=== PATIENT | male | born 1950 | race Hispanic/Latino ===

== ENCOUNTER 2020-07-31 20:29 | Inpatient (IN) | payer MEDICARE, OTHER ==
[~2020-07-31] VITALS: Ht 165.1 cm; Wt 94.3 kg
[~2020-07-31 20:29] MED LIST: ATORVASTATIN CA40 MG PO; CARVEDILOL6.25 MG PO; EX-LAX15 MG PO; LEVEMIR100 UNIT/1 SQ; LISINOPRIL20 MG PO; NOVOLOG100 UNIT/1
[2020-07-31] MEDS ORDERED: IBUPROFEN 600 MG TAB PO STA (20:39)
[2020-07-31] MEDS ORDERED: SODIUM CHLORIDE 0.9% 1000ML 1,000 ML IV ONE (20:45)
[2020-07-31] MEDS ORDERED: PIPER-TAZ 3.375 GM 50 ML IV ONE (20:45)
--- NOTE | 2020-07-31 20:50 | Emergency Department Note ---
History of Present Illnes History of Present Illness Chief Complaint: Extremity Trauma/Pain History of Present Illness This is a 70 year old male brought in by family member for c/o right 2nd digit necrosis that has been going on for about a week. Family states fever of 100.9 . Took tylenol at 1900 today.. Historian: Patient Arrival Mode: Car Structural Worker Required: No Onset (how long ago): day(s) (7) Location: RIGHT FOOT/1ST AND SECOND TOE Quality: TOES TURNING BLACK, FOOT RED AND HOT Radiation: Reports non-radiation Severity: moderate Onset quality: gradual Duration (how long): day(s) (7) Timing of current episode: constant Progression: worsening Chronicity: new Context: Denies recent illness, Denies recent surgery, Denies trauma/injury Relieving factors: none Exacerbating factors: none Treatments prior to arrival: antipyretic Past Medical/Family History Physician Review I have reviewed the patient's past medical and family history. Any updates have been documented here. Past Medical History Recent Fever: Yes Clinical Suspicion of Infectio: Yes New/Unexplained Change in Ment: No Past Medical History: Hypertension, Diabetes Other Medical History: Gastroenteritis. Chronically uncontrolled diabetes mellitus. 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 Right heel superficial wound. Peripheral vascular disease. Other Surgery: Old left ndyrj-[id number] amputation 2 cataract Social History Smoking Cessation: Never Smoker Alcohol Use: None Any Illegal Drug Use: No Family History Family history of heart diseas: No Other family history HTN,DM Other Last Tetanus: unk Review of Systems Review of Systems Constitutional: Reports as per HPI EENTM: Reports no symptoms Cardiovascular: Reports no symptoms Respiratory: Reports no symptoms Gastrointestinal: Reports no symptoms Genitourinary: Reports no symptoms Musculoskeletal: Reports as per HPI Integumentary: Reports as per HPI Neurological: Reports no symptoms Psychological: Reports no symptoms Endocrine: Reports no symptoms Hematological/Lymphatic: Reports no symptoms Physical Exam Related Data Allergies: Coded Allergies: No Known Allergies (Unverified , 03/10/14) Triage Vital Signs Vital Signs Date Time Temp Pulse Resp B/P (MAP) Pulse Ox O2 Delivery O2 Flow Rate FiO2 07/31/20 20:37 103.0 94 20 162/76 96 Room Air Vital signs reviewed: Yes Physical Exam CONSTITUTIONAL Constitutional: Present well-developed, Present well-nourished; Absent distressed HENT HENT: Present normocephalic, Present atraumatic, Present oropharynx clear/moist, Present nose normal HENT L/R: Present left ext ear normal, Present right ext ear normal EYES Eyes: Reports PERRL, Reports conjunctivae normal NECK Neck: Present ROM normal PULMONARY Pulmonary: Present effort normal, Present breath sounds normal CARDIOVASCULAR Cardiovascular: Present regular rhythm, Present heart sounds normal, Present capillary refill normal, Present normal rate GASTROINTESTINAL Abdominal: Present soft, Present nontender, Present bowel sounds normal GENITOURINARY Genitourinary: Present exam deferred SKIN Skin: Present warm, Present dry MUSCULOSKELETAL PT WITH NECROSIS/GANGRENE OF ENTIRE RIGHT SECOND TOE, GANGRENE OF DISTAL ASPECT OF RIGHT GREAT TOE, REST OF RIGHT FOOT IS RED AND HOT TO TOUCH PT WITH LEFT BKA NEUROLOGICAL Neurological: Present alert, Present oriented x 3, Present no gross motor or sensory deficits PSYCHOLOGICAL Psychological: Present mood/affect normal, Present judgement normal Results Laboratory Laboratory Laboratory Tests Test 07/31/20 20:52 07/31/20 20:44 Urine Color Yellow (YELLOW) Urine Clarity Hazy (CLEAR) Urine pH 5.5 (5 - 7) Urine Specific [place] 1.025 (1.010-1.025) Urine Protein >=300 (NEGATIVE) Urine Glucose (UA) 1+ (NEGATIVE) Urine Ketones Negative (NEGATIVE) Urine Blood Moderate (NEGATIVE) Urine Nitrite Negative (NEGATIVE) Urine Bilirubin Negative (NEGATIVE) Urine Urobilinogen 0.2 mg/dL (0.2 - 1) Urine Leukocyte Esterase Trace (NEGATIVE) Urine RBC 6-10 /HPF (0-5) Urine WBC 11-20 /HPF (0-5) Urine Epithelial Cells None /LPF (NONE) Urine Bacteria Many /HPF (NONE) White Blood Count 16.34 x10e3/uL (4.8-10.8) Red Blood Count 3.78 x10e6/uL (4.3-5.7) Hemoglobin 9.7 g/dL (14.0-18.0) Hematocrit 31.9 % (38.2-49.6) Mean Corpuscular Volume 84.4 fL (81-99) Mean Corpuscular Hemoglobin 25.7 pg (28-32) Mean Corpuscular Hemoglobin Concent 30.4 g/dL (31-35) Red Cell Distribution Width 13.2 % (11.7-14.4) Platelet Count 348 x10e3/uL (140-360) Neutrophils (%) (Auto) 84.9 % (38.7-80.0) Lymphocytes (%) (Auto) 7.1 % (18.0-39.1) Monocytes (%) (Auto) 6.8 % (4.4-11.3) Eosinophils (%) (Auto) 0.4 % (0.0-6.0) Basophils (%) (Auto) 0.2 % (0.0-1.0) Neutrophils # (Auto) 13.9 (2.1-6.9) Lymphocytes # (Auto) 1.2 (1.0-3.2) Monocytes # (Auto) 1.1 (0.2-0.8) Eosinophils # (Auto) 0.1 (0.0-0.4) Basophils # (Auto) 0.0 (0.0-0.1) Absolute Immature Granulocyte (auto 0.10 x10e3/uL (0-0.1) Sodium Level 138 mmol/L (136-145) Potassium Level 3.6 mmol/L (3.5-5.1) Chloride Level 104 mmol/L (98-107) Carbon Dioxide Level 20 mmol/L (22-29) Anion Gap 17.6 mmol/L (8-16) Blood Urea Nitrogen 34 mg/dL (7-26) Creatinine 2.22 mg/dL (0.72-1.25) Estimat Glomerular Filtration Rate 30 ML/MIN (60-) BUN/Creatinine Ratio 15 (6-25) Glucose Level 238 mg/dL (74-118) Lactic Acid Level 1.0 mmol/L (0.5-2.0) Calcium Level 7.8 mg/dL (8.4-10.2) Total Bilirubin 0.3 mg/dL (0.2-1.2) Aspartate Amino Transf (AST/SGOT) 9 IU/L (5-34) Alanine Aminotransferase (ALT/SGPT) 7 IU/L (0-55) Alkaline Phosphatase 82 IU/L (40-150) Creatine Kinase 64 IU/L (30-200) Creatine Kinase MB 1.00 ng/mL (0-5.0) Troponin I 0.014 ng/mL (0-0.300) Total Protein 7.1 g/dL (6.5-8.1) Albumin 3.4 g/dL (3.5-5.0) Globulin 3.7 g/dL (2.3-3.5) Albumin/Globulin Ratio 0.9 (0.8-2.0) Lab results reviewed: Yes Imaging Imaging results reviewed: Yes Procedures 12 Lead ECG Interpretation ECG Interpretation : ECG: ECG 1 Structural Worker: Interpreted by ED physician Date: Jul 31, 2020 Time: 21:17 Rhythm: sinus rhythm BPM: 86 QRS axis: left ST segments normal: Yes T waves normal: Yes Other findings: no other findings Clinical Impression: non-specific ECG Assessment & Plan Medical Decision Making MDM PT WITH GANGRENE OF 1 AND 2ND RIGHT TOES WITH ERYTHEMA AND WARMTH TO RIGHT FOOT, PT IS FEBRILE CBC, CMP, EKG, CXR, UA, BLOOD CULTURES, LACTIC ACID, RIGHT FOOT XRAY ORDERED TO EVAL FOR SEPSIS, OSTEOMYELITIS, LEUKOCYTOSIS, ELECTROLYTE ABNORMALITY, NS 1 LITER IV BOLUS ORDERED MOTRIN 600 MG PO ORDERED ZOSYN 3.375 GRAMS IV ORDERED VANCOMYCIN 1 GRAM IV ORDERED I SPOKE WITH DR GEORGE ADMIT INPATIENT Assessment & Plan Final Impression: (1) UTI (urinary tract infection) (2) Gangrene of toe of right foot (3) Cellulitis of right foot (4) Osteomyelitis Depart Disposition: ADMITTED Last Vital Signs Date Time Temp Pulse Resp B/P (MAP) Pulse Ox O2 Delivery O2 Flow Rate FiO2 07/31/20 20:37 103.0 94 20 162/76 96 Room Air Home Meds Reported Medications Sennosides (EX-LAX) 15 Mg Tablet, 15 MG PO DAILY PRN for CONSTIPATION 03/11/14 Lisinopril (PRINAVIL / ZESTRIL) 20 Mg Tablet, 20 MG PO DAILY 03/11/14 Atorvastatin Calcium (ATORVASTATIN CALCIUM) 40 Mg Tablet, 40 MG PO HS 03/11/14 Insulin Detemir (LEVEMIR) 100 Unit/1 Ml Vial, 20 U SQ QAM 03/11/14 Carvedilol (CARVEDILOL) 6.25 Mg Tablet, 6.25 MG PO Q12 03/11/14 Insulin Aspart (NOVOLOG) 100 Unit/1 Ml Cartridge 03/10/14 JC RICHMOND MD Jul 31, 2020 20:49
[2020-07-31 21:04] LABS: BASOPHILS % 0.2 % (0.0-1.0); EOSINOPHILS # (AUTO) 0.1 (0.0-0.4); EOSINOPHILS % 0.4 % (0.0-6.0); HEMATOCRIT 31.9 % (38.2-49.6); HEMOGLOBIN 9.7 g/dL (14.0-18.0); LYMPHOCYTES # (AUTO) 1.2 (1.0-3.2); LYMPHOCYTES % 7.1 % (18.0-39.1); MEAN CORPUSCULAR HEMOGLOBIN 25.7 pg (28-32); MEAN CORPUSCULAR HGB CONC 30.4 g/dL (31-35); MEAN CORPUSCULAR VOLUME 84.4 fL (81-99); MONOCYTES # (AUTO) 1.1 (0.2-0.8); MONOCYTES % 6.8 % (4.4-11.3); NEUTROPHILS # (AUTO) 13.9 (2.1-6.9); NEUTROPHILS % 84.9 % (38.7-80.0); PLATELET COUNT 348 x10e3/uL (140-360); RED BLOOD COUNT 3.78 x10e6/uL (4.3-5.7); RED CELL DISTRIBUTION WIDTH 13.2 % (11.7-14.4)
[2020-07-31 21:09] LABS: BILIRUBIN,URINE NEGATIVE (NEGATIVE); CLARITY,URINE HAZY (CLEAR); COLOR,URINE YELLOW (YELLOW); KETONES,URINE NEGATIVE (NEGATIVE); LEUKOCYTE ESTERASE ,URINE TRACE (NEGATIVE); NITRITE,URINE NEGATIVE (NEGATIVE); PROTEIN,URINE DIPSTICK >=300 (NEGATIVE); URINE UROBILINOGEN 0.2 mg/dL (0.2 - 1)
[2020-07-31 21:18] LABS: ALBUMIN 3.4 g/dL (3.5-5.0); ALBUMIN/GLOBULIN RATIO 0.9 (0.8-2.0); ANION GAP 17.6 mmol/L (8-16); CALCIUM 7.8 mg/dL (8.4-10.2); CREATININE, SERUM 2.22 mg/dL (0.72-1.25); POTASSIUM 3.6 mmol/L (3.5-5.1)
[2020-07-31 21:22] LABS: BACTERIA,URINE MANY /HPF
[2020-07-31] MEDS ORDERED: VANCOMYCIN 1GM/NS 250 ML 250 ML IV ONE (21:30)
--- OUTSIDE RECORDS SUMMARY | 2020-07-31 21:46 | XMS REPORT | Clinical Summary ---
Author Author [facility] Organization [facility] ict Address Unknown Phone Unavailable Care Team Providers Care Vice President Diversity Name Role Phone PCP Unavailable Allergies Comments Active Allergy Reactions Severity Noted Date No Known Allergies 06/13/2008 Medications End Date Status Medication Sig Dispensed Refills Start Date Active LANCETSIndications: BID. 1 Box 1 Uncontrolled diabetes 3 mellitus Active aspirin (ASPIRIN) 81 mg Chew and 30 tablet 0 chewable swallow 1 3 tabletIndications: tablet by Dyslipidemia mouth daily. Active bisacodyl (DULCOLAX) 10 Insert 1 30 0 mg SuppIndications: Suppository Suppository 3 Constipated rectally daily as needed (constipation ). Active bisacodyl (DULCOLAX) 5 mg Take 1 tablet 60 tablet 0 enteric coated by mouth 3 tabletIndications: daily. Constipated Active insulin needles, Inject 1 1 Box 0 disposable, (NOVOFINE 30) Device under 3 30 x 1/3 " the skin needlesIndications: DM daily. (diabetes mellitus) Active omeprazole (PRILOSEC) 20 Take 2 60 capsule 0 1 mg delayed release capsules by 3 capsuleIndications: mouth 2 times Gastritis daily (before meals). Active blood glucose Use as 1 Kit 0 meterIndications: DM directed. 4 (diabetes mellitus) Active blood glucose test Please test 1 Box 3 01 stripsIndications: DM blood sugars 4 (diabetes mellitus) before meals and at bed time. Active LANCETSIndications: DM Please use to 1 Box 3 0 (diabetes mellitus) check blood 4 sugars before meals and at Bedtime. Active insulin needles, Inject 1 1 Box 3 disposable, (NOVOFINE) 30 Device under 4 x 1/3 " the skin 2 needlesIndications: DM times daily. (diabetes mellitus) Active HYDROcodone-acetaminophen Take 1 tablet 30 tablet 1 (NORCO) 10-325 mg by mouth 4 tabletIndications: S/P every 4 hours BKA (below knee as needed for amputation) unilateral Pain. Active lisinopril (PRINIVIL, Take 1 tablet 30 tablet 0 ZESTRIL) 20 mg by mouth 4 tabletIndications: DM daily. (diabetes mellitus), HTN (hypertension) Active insulin detemir (LEVEMIR Inject 15 5 Pen 0 0 FLEXPEN) 100 unit/mL (3 Units under 4 mL) FlexPenIndications: the skin DM (diabetes mellitus) daily. Active insulin needles, Inject 1 1 Box 0 disposable, (NOVOFINE) 30 Device under 4 x 1/3 " the skin needlesIndications: DM daily. (diabetes mellitus) Active atorvastatin (LIPITOR) 40 Take 1 tablet 90 tablet 0 mg tabletIndications: HLD by mouth at 4 (hyperlipidemia) bedtime nightly. Active carvedilol (COREG) 6.25 Take 1 tablet 180 tablet 0 mg tabletIndications: HTN by mouth 4 (hypertension) every 12 hours. Active nystatin (NYSTOP) 100,000 Apply to 15 g 0 unit/gram topical affected area 4 powderIndications: Jock 4 times itch daily. Active Problems Problem Noted Date Open wound of foot with complication 04/21/2014 Wound eschar of foot 01/17/2014 HLD (hyperlipidemia) 12/22/2013 S/P BKA (below knee amputation) unilateral 4 Pseudomonas aeruginosa infection 12/09/2013 Wound infection complicating hardware 12/06/2013 Gangrene 12/02/2013 Osteomyelitis 12/02/2013 UTI (Lower Urinary Tract Infection) 11/19/2013 Closed bimalleolar fracture of left ankle 11/01/2013 Impaired mobility and activities of daily living Subclavian artery stenosis, left 10/14/2013 Fracture of distal end of tibia and fibula, closed, r ight 10/11/2013 Pleural effusion, left 10/08/2013 Constipated 07/29/2013 Cough 2013 Gastritis 2013 Gastroparesis 2013 Vomiting 07/06/2013 DM (diabetes mellitus) 06/23/2008 HTN (hypertension) 06/23/2008 Anemia, unspecified 06/23/2008 Immunizations Name Administration Dates Next Due PPV 23 Pneumococcal 02/15/2013 Polysaccaride Tdap Tetanus, diphtheria, 03/29/2013 acellular pertussis Vaccine Family History Medical History Relation Name Comments Diabetes Father Heart Father ME Relation Name Status Comments Brother Alive Daughter Father Father Maternal Grandfather Maternal Grandmother Mother Paternal Grandfather Paternal Grandmother Sister Alive x3 Social History Date Tobacco Use Types Packs/Day Years Used Former Smoker Cigarettes 2 30 Smokeless Tobacco: Never Used Tobacco Cessation: Counseling Given: No Comments: quit 15 years ago Drinks/Week oz/Week Comments Alcohol Use Used to drink 24 pac k of 10oz beers every day for 30 years. Stopped drinking 15 years ago. No Sex Assigned at Date Recorded Not on file Industry Job Start Date Occupation Not on file Not on file Not on file Travel End Travel History Travel Start No recent travel history available. Last Filed Vital Signs Not on file Plan of Treatment Health Maintenance Due Date Last Done Comments Colorectal Cancer Scrn 2001 Annual (FIT/FOBT) Age 50 to 75 DM Retinal Exam (Yearly) 02/19/2014 02/19/2013 (Previously completed - External) DM Foot Exam (Yearly) 02/25/2014 02/25/2013 CORONARY ARTERY DISEASE 10/08/2014 10/08/2013, AGE 18 AND UP 02/23/2013, 12/09/2008, Additional history exists DM HGBA1C (Yearly) 12/02/2014 12/02/2013, 10/08/2013, 02/23/2013, Additional history exists IMM Pneumococcal Age 65 2016 and Up Results Not on fileafter 07/31/2019 Insurance Type Payer Benefit Subscriber ID Effective Phone Address Plan / Dates Group [facility] xxxxxxxxx 2014- [phone] COMMUNITY Present [id number] PLAN [facility] [address] Advance Directives Date Inactivated Comments Code Status Date Activated 12/22/2013 10:09 PM Full Code 12/02/2013 11:48 AM 11/26/2013 5:29 PM Full Code 11/25/2013 10:28 PM 11/25/2013 10:28 PM Full Code 11/25/2013 7:31 PM 11/03/2013 6:17 PM Full Code 10/15/2013 5:59 PM 10/15/2013 5:30 PM Full Code 10/08/2013 11:31 AM
--- NOTE | 2020-07-31 21:47 | Diagnostic Imaging Report ---
EXAMINATION: CHEST SINGLE (PORTABLE) INDICATION: Fever COMPARISON: None FINDINGS: TUBES and LINES: None. LUNGS: Low right lung volume. Bibasilar haziness. Partial obscuration of left hemidiaphragm. Pulmonary vascular congestion. PLEURA: No pleural effusion or pneumothorax. HEART AND MEDIASTINUM: The cardiomediastinal silhouette is unremarkable. Aortic calcifications. BONES AND SOFT TISSUES: No acute osseous lesion. Soft tissues are unremarkable. UPPER ABDOMEN: No free air under the diaphragm. IMPRESSION: Bibasilar haziness can be due to atelectasis or pneumonia. Pulmonary vascular congestion. Signed by: Kade Cervantes DO on 07/31/2020 9:44 PM
--- NOTE | 2020-07-31 21:53 | Diagnostic Imaging Report ---
X-ray right foot 3 views HISTORY: Pain. COMPARISON: None available. FINDINGS: Bones: Subtle lucent/lytic changes in the distal tuft of the first toe. Joints: Degenerative changes. No dislocations. Soft tissues: Marked soft tissue swelling and minimal emphysema in the first toe. Extensive soft tissue edema. Vascular calcifications. Anterior tibial vascular stent. Thin heel soft tissues. IMPRESSION: Findings in the first toe raise suspicion for osteomyelitis. A right forefoot MRI with contrast can further characterize. Extensive edema about the foot and ankle. Soft tissue wound in the distal second toe. Signed by: Kade Cervantes DO on 07/31/2020 9:49 PM
[2020-07-31] MEDS ORDERED: ONDANSETRON HCL INJ 2MG/ML 2ML 2 MG/ML VIAL IV PRN (22:00)
[2020-07-31] MEDS ORDERED: DEXTROSE 50% SYRINGE 50 ML IV PRN (22:00)
[2020-07-31] MEDS ORDERED: MORPHINE SULFATE 2 MG/ML SYR 1ML IV PRN (22:00)
[2020-07-31] MEDS ORDERED: ACETAMINOPHEN 325 MG TAB PO PRN (22:00)
--- OUTSIDE RECORDS SUMMARY | 2020-07-31 22:01 | XMS REPORT | Continuity of Care Document ---
Author Author [facility] Organization [facility] Address [address] [place] [address] Phone Unavailable Care Team Providers Care Title One Teacher Name Role Phone Martha RICHMOND Unavailable Problems Condition Name Condition Details Condition Category Status Onset Date Resolution Date Last Treatment Date Treating Clinician Comments Source Open wound of foot with complication Open wound of foot with complication Disease Active 2014-04-21 00:00:00 [facility] Wound eschar of foot Wound eschar of foot Disease Active 00:00:00 [place] [employer] HLD (hyperlipidemia) HLD (hyperlipidemia) Disease Active 00:00:00 DiBcom S/P BKA (below knee amputation) unilateral S/P BKA (be low knee amputation) unilateral Disease Active 2013-12-18 00:00:00 [facility] Pseudomonas aeruginosa infection Pseudomonas aeruginosa infectio n Disease Active 2013-12-09 00:00:00 [facility] [employer] Wound infection complicating hardware Wound infection compli cating hardware Disease Active 2013-12-06 00:00:00 [facility] Gangrene Gangrene Disease Active 2013-12-02 00:00:00 [facility] Osteomyelitis Osteomyelitis Disease Active 2013-12-02 00:00:00 [place] UTI (Lower Urinary Tract Infection) UTI (Lower Urinary Tract Inf ection) Disease Active 2013-11-19 00:00:00 [facility] [employer] Closed bimalleolar fracture of left ankle Closed jaret leolar fracture of left ankle Disease Active 2013-11-01 00:00:00 [facility] Impaired mobility and activities of daily living Impai red mobility and activities of daily living Disease Active 2013-10-15 00:00:00 [place] [facility] Subclavian artery stenosis, left Subclavian artery stenosis, lef t Disease Active 2013-10-14 00:00:00 [facility] Fracture of distal end of tibia and fibula, closed, ri ght Fracture of distal end of tibia and fibula, closed, right Disease Active 2013-10-11 00:00:00 [facility] Pleural effusion, left Pleural effusion, left Disease Active 2013-10-08 00:00:00 [facility] Constipated Constipated Disease Active 2013-07-29 00:00:00 [facility] Cough Cough Disease Active 2013 00:00:00 [facility] Gastritis Gastritis Disease Active 2013 00:00:00 [facility] Gastroparesis Gastroparesis Disease Active 2013 00:00:00 [facility] Vomiting Vomiting Disease Active 2013-07-06 00:00:00 [facility] DM (diabetes mellitus) DM (diabetes mellitus) Disease Active 2008-06-23 00:00:00 [facility] HTN (hypertension) HTN (hypertension) Disease Active 2008-06-23 00:00:0 0 [facility] Anemia, unspecified Anemia, unspecified Disease Active 2008-06-23 00:00 :00 [facility] Allergies, Adverse Reactions, Alerts This patient has no known allergies or adverse reactions. Family History Family Member Diagnosis Comments Start Date Stop Date Source Natural father Diabetes [facility] Natural father Heart [facility] Social History Social Habit Start Date Stop Date Quantity Comments Source History of tobacco use Cigarette Smoker [facility] Alcohol Comment Used to drink 24 pack of 10oz beers every day for 30 years. Stopped drinking 15 years ago. [facility]igned At [facility] Cigarettes smoked current (pack per day) - Reported 00:00:00 2014-01-17 00:00:00 [facility] Cigarette pack-years 2014-01-17 00:00:00 2014-01-17 00:00:00 [facility] Alcohol intake 2014-01-17 00:00:00 2014-01-17 00:00:00 Current non-drinker of alcohol (finding) [facility] Tobacco Comment 2013-11-26 00:00:00 2013-11-26 00:00:00 quit 15 years ago [facility] Smoking Status Start Date Stop Date Source Former smoker 2014-01-17 00:00:00 2014-01-17 00:00:00 [facility] ealt Medications Ordered Medication Name Filled Medication Name Start Date Stop Da te Current Medication? Ordering Clinician Indication Dosage Frequency Signature (SIG) Comments Components Source nystatin (NYSTOP) 100,000 unit/gram topical powder 2013-12 00:00:00 Yes Jock itch Apply to affected area 4 times daily. [facility] atorvastatin (LIPITOR) 40 mg tablet 2014-01-03 00:00:00 Yes HLD (hyperlipidemia) 40mg Take 1 tablet by mouth at bedtime nightly . [facility] carvedilol (COREG) 6.25 mg tablet 2014-01-03 00:00:00 Yes HTN (hypertension) 6.25mg Take 1 tablet by mouth every 12 hours. [facility] HYDROcodone-acetaminophen (NORCO) 10-325 mg tablet 2013-11 00:00:00 Yes S/P BKA (below knee amputation) unilateral 1{tbl} Take 1 tablet by mouth every 4 hours as needed for Pain[facility] (PRINIVIL, ZESTRIL) 20 mg tablet 2013-12-22 00:00 :00 Yes HTN (hypertension) 20mg QD Take 1 tablet by mouth daily. [facility] insulin detemir (LEVEMIR FLEXPEN) 100 unit/mL (3 mL) FlexPen 2013-12-22 00:00:00 Yes DM (diabetes mellitus) 15U QD Inject 15 Units under the skin daily. [facility] insulin needles, disposable, (NOVOFINE) 30 x 1/3 " needles 2013-12-22 00:00:00 Yes DM (diabetes mellitus) 1{device} QD Inject 1 Device under the skin daily. [facility] blood glucose meter 2013-11-26 00:00:00 Yes DM (d iabetes mellitus) Use as directed. [facility] blood glucose test strips 2013-11-26 00:00:00 Yes DM (diabetes mellitus) Please test blood sugars before meals and at bed time. [facility] LANCETS 2013-11-26 00:00:00 Yes DM (diabetes jeremy itus) Please use to check blood sugars before meals and at Bedtime. [facility] insulin needles, disposable, (NOVOFINE) 30 x 1/3 " needles 2013-11-26 00:00:00 Yes DM (diabetes mellitus) 1{device} Q.5D Inject 1 Device under the skin 2 times daily. [facility] aspirin (ASPIRIN) 81 mg chewable tablet 2013-11-02 00:00:00 Yes Dyslipidemia 81mg QD Chew and swallow 1 tablet by mouth daily. [facility] bisacodyl (DULCOLAX) 10 mg Supp 2013-11-02 00:00:00 Yes Constipated 10mg Insert 1 Suppository rectally daily as needed (constipation). [facility] bisacodyl (DULCOLAX) 5 mg enteric coated tablet 2013-11-02 0 0:00:00 Yes Constipated 5mg QD Take 1 tablet by mouth daily. [facility] insulin needles, disposable, (NOVOFINE 30) 30 x 1/3 " needle s 2013-11-02 00:00:00 Yes DM (diabetes mellitus) 1{device} QD Inject 1 Device under the skin daily. [facility] omeprazole (PRILOSEC) 20 mg delayed release capsule 2012-11 00:00:00 Yes Gastritis 40mg Q.5D Take 2 capsules by mouth 2 times daily ( before meals). [facility] LANCETS 2013-07-29 00:00:00 Yes Uncontrolled diabetes mellitus BID. [facility] Immunizations Ordered Immunization Name Filled Immunization Name Date Status Comments Source Tdap Tetanus, diphtheria, acellular pertussis Vaccine 2013-03-29 00:00:00 Completed [facility] PPV 23 Pneumococcal Polysaccaride 2013-02-15 00:00:00 Comp leted [facility] Procedures This patient has no known procedures. Plan of Care Planned Activity Planned Date Details Comments Source Future Scheduled Test 2016 00:00:00 IMM Pneumococcal A ge 65 and Up [code = IMM Pneumococcal Age 65 and Up] [facility] Scheduled Test 2014-12-02 00:00:00 Hemoglobin A1c nelson surement (procedure) [code = 16940605] [facility] Scheduled Test 2014-10-08 00:00:00 CORONARY ARTERY DI SEASE AGE 18 AND UP [code = CORONARY ARTERY DISEASE AGE 18 AND UP] [facility] Scheduled Test 2014-02-25 00:00:00 DM Foot Exam (Year ly) [code = DM Foot Exam (Yearly)] [facility] Scheduled Test 2014-02-19 00:00:00 DM Retinal Exam (Y early) [code = DM Retinal Exam (Yearly)] [facility] Scheduled Test 2001 00:00:00 Screening for joanna gnant neoplasm of colon (procedure) [code = 110876542] [facility] Results Test Description Test Time Test Comments Results Result Comments Source FOOT RIGHT COMPLETE 2020-07-31 21:44:00 [place] [id number] [place] [address] Patient Name: JOANIE DINERO JR MR #: [id number] : 1950 Age/Sex: 70/M Req #: [id number] Adm Physician: Ordered by: JC RICHMOND MD Report #: [id number] Location: ER Room/Bed: Procedure: [id number] DX/FOOT RIGHT COMPLETE Exam Date: 07/31/20 Exam Time: 2104 REPORT STATUS: Signed X-ray right foot 3 views HISTORY: Pain. COMPARISON: None available. FINDINGS: Bones: Subtle lucent/lytic changes in the distal tuft of the first toe. Joints: Degenerative changes. No dislocations. Soft tissues: Marked soft tissue swelling and minimal emphysema in the first toe. Extensive soft tissue edema. Vascular calcifications. Anterior tibial vascular stent. Thin heel soft tissues. IMPRESSION: Findings in the first toe raise suspicion for osteomyelitis. A right forefoot MRI with contrast can further characterize. Extensive edema about the foot and ankle. Soft tissue wound in the distal second toe. Signed by: Kade Cervantes DO on 07/31/2020 9:49 PM Dictated By: KADE CERVANTES DO 48 Transcribed By: BON on 07/31/202148 COPY TO: JC RICHMOND MD CHEST SINGLE (PORTABLE) 2020-07-31 21:42:00 [place] [address] Patient Name: JOANIE DINERO JR MR #: [id number] : 1950 Age/Sex: 70/M Req #: [id number] Adm Physician: Ordered by: JC RICHMOND MD Report #: [id number] Location: ER Room/Bed: Procedure: [id number] DX/CHEST SINGLE (PORTABLE) Exam Date: 07/31/20 Exam Time: 2104 REPORT STATUS: Signed EXAMINATION: CHEST SINGLE (PORTABLE) INDICATION: Fever COMPARISON: None FINDINGS: TUBES and LINES: None. LUNGS: Low right lung volume. Bibasilar haziness. Partial obscuration of left hemidiaphragm. Pulmonary vascular congestion. PLEURA: No pleural effusion or pneumothorax. HEART AND MEDIASTINUM: The cardiomediastinal silhouette is unremarkable. Aortic calcifications. BONES AND SOFT TISSUES: No acute osseous lesion. Soft tissues are unremarkable. UPPER ABDOMEN: No free air under the diaphragm. IMPRESSION: Bibasilar haziness can be due to atelectas is or pneumonia. Pulmonary vascular congestion. Signed by: Kade Cervantes DO on 07/31/2020 9:44 PM Dictated By: KADE CERVANTES DO 43 Transcribed By: BON on 07/31/202143 COPY TO: JC RICHMOND MD
--- OUTSIDE RECORDS SUMMARY | 2020-07-31 22:01 | XMS REPORT | Clinical Summary ---
Author Author [facility] Organization [facility] ict Address Unknown Phone Unavailable Care Team Providers Care Shrimp Picker Name Role Phone PCP Unavailable Allergies Comments [...] Relation Name Comments Diabetes Father Heart Father [place] Relation Name Status Comments Brother Alive Daughter [...] Effective Phone Address Plan / Dates Group [facility] xxxxxxxxx 2014- [phone] COMMUNITY Present [id number] [place] [address] Advance Directives Date Inactivated Comments Code Status Date Activated 12/22/2013 10:09 PM Full Code 12/02/2013 11:48 AM 11/26/2013 5:29 PM Full Code 11/25/2013 10:28 PM 11/25/2013 10:28 PM Full Code 11/25/2013 7:31 PM 11/03/2013 6:17 PM Full Code 10/15/2013 5:59 PM 10/15/2013 5:30 PM Full Code 10/08/2013 11:31 AM
[2020-07-31] MEDS: INSULIN REGULAR, HUMAN 100 UNIT/1 ML 3ML VIAL SQ SCH (22:55)
[2020-07-31] MEDS ORDERED: SIMVASTATIN20 MG PO (23:11)
[2020-07-31] MEDS ORDERED: METOPROLOL TART25 MG PO (23:11)
[2020-07-31] MEDS ORDERED: DIOVAN80 MG PO (23:11)
[2020-07-31] MEDS ORDERED: FLOMAX0.4 MG PO (23:11)
[2020-07-31 23:30] VITALS: BP 178/85
--- NOTE | 2020-07-31 23:30 | NUR ---
NEW ADMISSION CAME FROM ER IN [facility].AAOX3.IV TO KELVIN IS PATENT.ADMISSION ASSESSMENT DONE.NO RESP.DISTRESS.NO PAIN VOICED.ORIENTED TO THE UNIT.BED LOCKED AND IN LOWEST POSITION.CALL LIGHT WITHIN REACH.INSTRUCTED TO CALL FOR ASSISTANCE NEEDED.
[2020-07-31 23:40] VITALS: BP 155/85
[2020-08-01] VITALS (7 sets, daily range): BP systolic 97–210; BP diastolic 63–83
[2020-08-01] MEDS: SODIUM CHLORIDE 0.9% 1000ML 1,000 ML IV SCH ×2 (00:51→08:00)
[2020-08-01] MEDS ORDERED: PIPER-TAZ 3.375 GM 50 ML IV ONE (05:00)
[2020-08-01 06:00] LABS: BASOPHILS # (AUTO) 0.1 (0.0-0.1); BASOPHILS % 0.4 % (0.0-1.0); EOSINOPHILS # (AUTO) 0.1 (0.0-0.4); EOSINOPHILS % 0.5 % (0.0-6.0); HEMATOCRIT 29.6 % (38.2-49.6); LYMPHOCYTES # (AUTO) 2.3 (1.0-3.2); LYMPHOCYTES % 12.6 % (18.0-39.1); MEAN CORPUSCULAR HEMOGLOBIN 25.9 pg (28-32); MEAN CORPUSCULAR HGB CONC 30.4 g/dL (31-35); MEAN CORPUSCULAR VOLUME 85.3 fL (81-99); MONOCYTES # (AUTO) 1.9 (0.2-0.8); MONOCYTES % 10.5 % (4.4-11.3); NEUTROPHILS # (AUTO) 13.5 (2.1-6.9); NEUTROPHILS % 75.3 % (38.7-80.0); PLATELET COUNT 328 x10e3/uL (140-360); RED BLOOD COUNT 3.47 x10e6/uL (4.3-5.7); RED CELL DISTRIBUTION WIDTH 13.4 % (11.7-14.4)
--- NOTE | 2020-08-01 06:13 | NUR ---
BP NOTED 200/83 MMOF HG.NOTIFIED TO ARAM TOURE.RECEIVED NEW ORDERS.
[2020-08-01 06:25] LABS: ALBUMIN 3.1 g/dL (3.5-5.0); ALBUMIN/GLOBULIN RATIO 0.9 (0.8-2.0); ALKALINE PHOSPHATASE 75 IU/L (40-150); ANION GAP 17.5 mmol/L (8-16); BLOOD UREA NITROGEN 35 mg/dL (7-26); BUN/CREATININE RATIO 16 (6-25); CALCIUM 7.5 mg/dL (8.4-10.2); CARBON DIOXIDE 21 mmol/L (22-29); CHLORIDE 106 mmol/L (98-107); EST GLOMERULAR FILTRATION RATE 30 ML/MIN (60-); GLUCOSE 94 mg/dL (74-118); POTASSIUM 3.5 mmol/L (3.5-5.1); SODIUM 141 mmol/L (136-145)
[2020-08-01 06:26] LABS: ALANINE AMINOTRANSFERASE < 6 IU/L (0-55)
[2020-08-01] MEDS: HYDRALAZINE HCL 20 MG/ML VIAL IV PRN ×2 (06:27→11:43)
--- NOTE | 2020-08-01 07:30 | NUR ---
Bed side report given to oncoming rn.stable condition.
[2020-08-01] MEDS ORDERED: VANCOMYCIN 1GM/NS 250 ML 250 ML IV SCH (10:00)
[2020-08-01] MEDS: FAMOTIDINE 20 MG TAB PO SCH ×2 (11:30→19:07)
[2020-08-01] MEDS: INSULIN REGULAR, HUMAN 100 UNIT/1 ML 3ML VIAL SQ SCH ×3 (11:30→20:22)
[2020-08-01] MEDS ORDERED: NON-FORMULARY MEDICATION (Carvedilol 6.25 MG) PO SCH (12:15)
[2020-08-01] MEDS ORDERED: MORPHINE SULFATE INJ 4 MG/ML INJ 1ML IV PRN (12:30)
[2020-08-01] MEDS ORDERED: MORPHINE SULFATE 2 MG/ML SYR 1ML IV PRN (12:45)
[2020-08-01] MEDS: CARVEDILOL 3.125 MG TAB PO SCH ×2 (13:02→21:54)
[2020-08-01] MEDS ORDERED: PIPER-TAZ 3.375 GM 50 ML IV SCH (14:00)
--- NOTE | 2020-08-01 15:42 | NUR ---
PT OFF THE FLOOR FOR MRI OF RIGHT FOOT
--- NOTE | 2020-08-01 16:06 | NUR ---
Discontinuing physical therapy services due to patient refusal. Addendum: 08/01/20 at 1607 by Richard paul PT Amended: Links added.
--- NOTE | 2020-08-01 16:42 | NUR ---
PT BACK TO FLOOR FROM MRI
[2020-08-01] MEDS ORDERED: CEFEPIME HCL 1 GM VIAL IV SCH (17:15)
[2020-08-01] MEDS: CEFEPIME 1GM/NS 0.9% 50 ML 50 ML IV SCH ×2 (17:30→18:00)
--- NOTE | 2020-08-01 19:51 | Consultation ---
DATE OF CONSULTATION: REASON FOR CONSULTATION: Infection of the foot. HISTORY OF PRESENT ILLNESS: This patient, who is a very pleasant 70-year-old male, history of diabetes mellitus, history of peripheral vascular disease, hypertension, and severe neuropathy, comes in with fever, chills, gangrene changes of the 2nd toe on the right, which he had for few weeks, but getting progressively worse with redness and swelling. The patient comes in. He does have history of coronary artery disease, peripheral vascular disease, history of left sqauy-bys-pika amputation before, diabetes mellitus, hypertension, multiple surgeries done on his feet before. The patient is being admitted. I am asked to see him. He is currently on Zosyn, Coreg, vancomycin, insulin, and morphine. The patient's white count on admission was 17.8, hemoglobin 9.0. His sodium 141, potassium 3.5, creatinine 2.20. PHYSICAL EXAMINATION: GENERAL: He is currently alert and oriented. Does not seem to be in acute distress. VITAL SIGNS: Stable, currently afebrile. HEENT: He is not icteric. NECK: Supple. CHEST: Few crackles bilateral. HEART: S1 and S2. ABDOMEN: Soft. EXTREMITIES: The foot, there is erythema, there is edema, there is gangrenous changes noted of the toe. His Charcot deformity noted in the foot. Pulse was weak. IMPRESSION: Osteomyelitis of the foot, gangrene of the toe, chronic kidney disease, and diabetes mellitus. RECOMMENDATIONS: We will put him on vancomycin and cefepime. Concerned about his kidney function. We will adjust for kidney function. We will discontinue his Zosyn. Consider vascular workup. Consider renal evaluation. Discussed with the medical team. We will follow. MD ELEANOR Oh/ESME /[id number]
[2020-08-01] MEDS: LINEZOLID 600 MG/D5W 300ML 300 ML IV SCH (19:57)
[2020-08-01] MEDS: ACETAMINOPHEN/CODEINE 300MG - 30MG TAB PO PRN (20:21)
[2020-08-01] MEDS ORDERED: NON-FORMULARY MEDICATION (Atorvastatin Calcium 40 MG) PO SCH (21:00)
[2020-08-01] MEDS: ATORVASTATIN 40 MG TAB PO SCH (21:54)
[2020-08-02] VITALS (9 sets, daily range): BP systolic 121–180; BP diastolic 52–78
[2020-08-02] MEDS: SODIUM CHLORIDE 0.9% 1000ML 1,000 ML IV SCH (04:57)
[2020-08-02] MEDS: CEFEPIME 1GM/NS 0.9% 50 ML 50 ML IV SCH ×2 (05:14→16:59)
[2020-08-02] MEDS: HYDRALAZINE HCL 20 MG/ML VIAL IV PRN (05:32)
[2020-08-02] MEDS: ACETAMINOPHEN/CODEINE 300MG - 30MG TAB PO PRN (05:33)
[2020-08-02] MEDS: LINEZOLID 600 MG/D5W 300ML 300 ML IV SCH ×2 (06:10→18:40)
[2020-08-02 06:24] LABS: BASOPHILS # (AUTO) 0.1 (0.0-0.1); BASOPHILS % 0.4 % (0.0-1.0); EOSINOPHILS # (AUTO) 0.3 (0.0-0.4); EOSINOPHILS % 1.6 % (0.0-6.0); HEMATOCRIT 28.5 % (38.2-49.6); HEMOGLOBIN 8.7 g/dL (14.0-18.0); LYMPHOCYTES # (AUTO) 1.8 (1.0-3.2); LYMPHOCYTES % 10.9 % (18.0-39.1); MEAN CORPUSCULAR HGB CONC 30.5 g/dL (31-35); MEAN CORPUSCULAR VOLUME 85.1 fL (81-99); MONOCYTES # (AUTO) 1.3 (0.2-0.8); MONOCYTES % 8.1 % (4.4-11.3); NEUTROPHILS % 78.3 % (38.7-80.0); PLATELET COUNT 353 x10e3/uL (140-360); RED BLOOD COUNT 3.35 x10e6/uL (4.3-5.7); RED CELL DISTRIBUTION WIDTH 13.5 % (11.7-14.4)
[2020-08-02 06:43] LABS: ALBUMIN 3.1 g/dL (3.5-5.0); ALBUMIN/GLOBULIN RATIO 0.9 (0.8-2.0); ANION GAP 17.8 mmol/L (8-16); CALCIUM 7.7 mg/dL (8.4-10.2); CHOL/HDL RATIO 3.3 (3.9-4.7); CREATININE, SERUM 2.22 mg/dL (0.72-1.25); POTASSIUM 3.8 mmol/L (3.5-5.1)
--- NOTE | 2020-08-02 06:45 | NUR ---
SBAR BEDSIDE REPORT RECEIVED FROM JONY PALOMINO, PM SHIFT. PT FOUND RESTING IN BED, EASILY AROUSED IN NO ACUTE DISTRESS. PT IS ABLE TO MAKE NEEDS KNOWN AND DENIES ANY NEEDS AT THIS TIME. PT WAS EDUCATED ON FALL RISK PRECAUTIONS AND VERBALIZED UNDERSTANDING. CALL LIGHT AND BELONGINGS PLACED NEARBY. WILL CONTINUE TO MONITOR.
[2020-08-02 07:05] LABS: THYROID STIMULATING HORMONE 3.525 uIU/mL (0.350-4.940)
--- NOTE | 2020-08-02 07:15 | NUR ---
ARTERIAL DUPLEX ORDERED BUT NO RESULTS. CALL PLACED TO ECHO AND VERIFIED TEST WAS NOT COMPLETED. ED WILL MAKE THE TECH AWARE FOR TEST TO BE COMPLETED THIS AM
--- NOTE | 2020-08-02 07:18 | NUR ---
RT FOOT WOUND IS DRY.UNABLE TO SEND WOUND CULTURE.BED SIDE SHIFT REPORT GIVEN TO ONCOMING RN.STABLE CONDITION.
[2020-08-02] MEDS: INSULIN REGULAR, HUMAN 100 UNIT/1 ML 3ML VIAL SQ SCH ×4 (07:30→20:57)
--- NOTE | 2020-08-02 08:27 | Diagnostic Imaging Report ---
TECHNIQUE: Magnetic resonance imaging of the RIGHT foot was performed WITHOUT injected contrast. HISTORY: Right foot pain, cellulitis COMPARISON: None available. DISCUSSION: Limited MRI due to motion artifacts poor signal. Bone marrow edema and T1 signal loss in the distal aspect of the distal phalanx first toe and involving the middle and distal phalanges of the second toe. The remainder of the bone marrow signal appears unremarkable. Atrophy of the foot musculature. No drainable abscess. Soft tissue swelling and subcutaneous edema throughout the forefoot. IMPRESSION: Osteomyelitis versus ischemic change to the distal phalanx of the hallux and middle and distal phalanges of the second toe. Signed by: Dr. Pedrito Schumacher M.D. on 08/02/2020 8:24 AM
[2020-08-02] MEDS: CARVEDILOL 3.125 MG TAB PO SCH ×2 (08:29→21:06)
[2020-08-02] MEDS: FAMOTIDINE 20 MG TAB PO SCH ×2 (08:29→16:59)
[2020-08-02] MEDS ORDERED: NON-FORMULARY MEDICATION (Insulin Detemir (Levemir) 20 U) SQ SCH (09:00)
[2020-08-02] MEDS: LISINOPRIL 20 MG TAB PO SCH (09:09)
[2020-08-02] MEDS: TAMSULOSIN HCL 0.4 MG CAP PO SCH (09:09)
[2020-08-02] MEDS: INSULIN GLARGINE 100 UNITS/ML VIAL SQ SCH (09:45)
--- NOTE | 2020-08-02 09:48 | Consultation ---
DATE OF CONSULTATION: 08/02/2020 REASON FOR CONSULTATION: Gangrenous changes to the 1st and 2nd toes, right foot with the patient being an insulin-dependent diabetic. HISTORY OF PRESENT ILLNESS: This is a pleasant 70-year-old male was seen at bedside, who relates he has had some changes to his right foot for more than several weeks now, was having some fever this past Friday. Since he has been on IV antibiotics, he is denying any history of fever, chills, nausea, or vomiting. PAST MEDICAL HISTORY: Remarkable for insulin-dependent diabetes, hypertension, and hypercholesterolemia. PAST SURGICAL HISTORY: Remarkable for left BKA and partial calcanectomy of the right foot. SOCIAL HISTORY: Denies any smoking, drinking, or recreational drug use. CURRENT MEDICATIONS: Include IV vancomycin and cefepime. FAMILY HISTORY: Remarkable for diabetes. REVIEW OF SYSTEMS: CARDIAC: He is denying any palpitations or arrhythmias. RESPIRATORY: Denies any shortness of breath or productive cough. GASTROINTESTINAL: Denies any diarrhea or constipation. GENITOURINARY: Denies any problems voiding. PHYSICAL EXAMINATION: VITAL SIGNS: Afebrile, pulse rate 78, respirations 20, blood pressure 154/57, and O2 saturation 97%. Podiatric physical examination reveals the following: VASCULATURE: Pedal pulses of both the DP and PT of the right lower extremity is greatly diminished. Skin temperature is warm and cool to touch. NEUROLOGICAL: Reveals decreased protective sensation when utilizing Troy-Ed 5.07 monofilament wire. MUSCULOSKELETAL: Reveals muscle mass to be somewhat swollen. Muscle strength to be 3 to 4/5 to all muscle groups of the right foot. DERMATOLOGICAL: Reveals gangrenous changes noted to the 1st and 2nd toe of the right foot, 2nd toe being worse with some periwound cellulitis present. MRI report visualized and positive for osteomyelitis to the right and 2nd toe, right foot. LABORATORY DATA: Noted. He has a white blood cell count of 16.5, hemoglobin 8.7, hematocrit 28.5 with a platelet count of 353. He has a blood glucose of 149. ASSESSMENT: 1. Osteomyelitis. 2. Peripheral arterial disease. 3. Gangrene. 4. Cellulitis, right foot. PLAN: 1. We will continue IV antibiotics as per Dr. Arredondo, waiting for Dr. Sanchez for Vascular evaluation. 2. We will start diluted wet-to-dry Betadine. Continue offloading. The patient is aware he may need an amputation following Vascular evaluation for possible bypass surgery. SERGIO [place]/ESME /[id number]
[2020-08-02] MEDS: AMLODIPINE BESYLATE 10 MG TAB PO SCH (09:51)
--- NOTE | 2020-08-02 12:19 | Diagnostic Imaging Report ---
Exam: FOOT RIGHT COMPLETE - 3 views History: Foot wound/first and second toe gangrene Comparison: Right foot MRI 08/01/2020, right foot radiographs 07/31/2020 Findings: Cortical irregularity at the tuft of the first toe distal phalanx. Additional cortical irregularity at the distal and middle phalanges of the second digit. Findings may represent osteomyelitis or ischemic necrosis which is further evaluated on recent right foot MRI. Diffuse osseous demineralization. No joint malalignment or dislocation. Advanced degenerative changes of the ankle. Posterior and plantar calcaneal enthesophytes. Soft tissue irregularity of the first and second digit with questionable subcutaneous emphysema, correlates with reported foot wound. Scattered vascular calcifications. Impression: 1. Soft tissue irregularity of the first and second digits with questionable subcutaneous emphysema, correlates with reported foot wound. 2. Associated cortical irregularity at the first toe distal phalanx and second toe distal and middle phalanges, which may represent osteomyelitis or ischemic necrosis and further evaluated on recent right foot MRI. Signed by: Dr. Perez Garcia M.D. on 08/02/2020 12:15 PM
--- NOTE | 2020-08-02 17:28 | NUR ---
DOING BETTER no complaints Osteomyelitis of the foot, gangrene of the toe, chronic kidney disease, and diabetes mellitus. sever pvd charco RECOMMENDATIONS: We will put him on vancomycin and cefepime. Concerned about his kidney function. We will adjust for kidney function. We will discontinue his Zosyn. Consider vascular workup. Consider renal evaluation. Discussed with the medical team. We will follow.
--- NOTE | 2020-08-02 18:06 | Diagnostic Imaging Report ---
EXAM: Renal Ultrasound INDICATION: MICHELLE COMPARISON: None TECHNIQUE: Transverse and longitudinal images of the kidneys and bladder were obtained. FINDINGS: Right Kidney: Size: 9.8 x 4.2 x 4.6 cm Echogenicity: Normal Parenchymal thickness: Normal Collecting system: No hydronephrosis Stones: None Cyst/Mass: None Left Kidney: Size: 9.7 x 5.0 x 5.3 cm Echogenicity: Normal Parenchymal thickness: Normal Collecting system: No hydronephrosis Stones: None Cyst/Mass: None Bladder: Decompressed and not well assessed the result. Others: The prostate gland is not seen. IMPRESSION: Normal renal ultrasound exam. Signed by: Evi Shaw MD on 08/02/2020 6:02 PM
--- NOTE | 2020-08-02 18:22 | Progress Note ---
DATE: SUBJECTIVE: Mr. Quiñones is doing well. There are no new complaints. REVIEW OF SYSTEMS: Otherwise unremarkable. The foot seems to be slightly better. PHYSICAL EXAMINATION: GENERAL: He is currently alert, oriented. VITAL SIGNS: Stable, currently afebrile. HEENT: He is not icteric. NECK: Supple. CHEST: Clear. HEART: S1, S2. ABDOMEN: Soft. EXTREMITIES: Foot, gangrenous changes as noted. IMPRESSION: Infection of the foot, osteomyelitis, severe peripheral vascular disease, urinary tract infection, chronic kidney disease. The patient is currently on cefepime and linezolid. Continue supportive care. Vascular workup. He may end up with amputation. Prognosis is guarded recheck. We will follow. MD ELEANOR Oh/MODL /[id number]
[2020-08-02] MEDS: ATORVASTATIN 40 MG TAB PO SCH (21:06)
[2020-08-02] MEDS: ACETAMINOPHEN 325 MG TAB PO PRN (21:06)
[2020-08-03] VITALS (8 sets, daily range): BP systolic 135–153; BP diastolic 56–95
[2020-08-03] MEDS: MORPHINE SULFATE 2 MG/ML SYR 1ML IV PRN ×3 (00:37→17:07)
[2020-08-03] MEDS: CEFEPIME 1GM/NS 0.9% 50 ML 50 ML IV SCH ×2 (04:33→16:25)
[2020-08-03] MEDS: LINEZOLID 600 MG/D5W 300ML 300 ML IV SCH ×2 (05:07→17:25)
[2020-08-03 06:14] LABS: BASOPHILS # (AUTO) 0.1 (0.0-0.1); BASOPHILS % 0.4 % (0.0-1.0); EOSINOPHILS # (AUTO) 0.2 (0.0-0.4); EOSINOPHILS % 1.4 % (0.0-6.0); HEMATOCRIT 25.3 % (38.2-49.6); LYMPHOCYTES # (AUTO) 1.9 (1.0-3.2); LYMPHOCYTES % 13.5 % (18.0-39.1); MEAN CORPUSCULAR HEMOGLOBIN 27.4 pg (28-32); MEAN CORPUSCULAR HGB CONC 31.6 g/dL (31-35); MEAN CORPUSCULAR VOLUME 86.6 fL (81-99); MONOCYTES # (AUTO) 1.5 (0.2-0.8); MONOCYTES % 10.7 % (4.4-11.3); NEUTROPHILS # (AUTO) 10.3 (2.1-6.9); NEUTROPHILS % 73.1 % (38.7-80.0); PLATELET COUNT 330 x10e3/uL (140-360); RED BLOOD COUNT 2.92 x10e6/uL (4.3-5.7); RED CELL DISTRIBUTION WIDTH 13.9 % (11.7-14.4)
--- NOTE | 2020-08-03 06:14 | Consultation ---
DATE OF CONSULTATION: 08/02/2020 Nephrology Consultation REASON FOR CONSULTATION: CKD management, MICHELLE. HISTORY OF PRESENT ILLNESS: This is a 70-year-old male with known type 2 diabetes and hypertension, very noncompliant. He came in for a worsening right foot infection, needing further evaluation and management. Nephrology was consulted for CKD management. The patient reportedly is doing well with no complaints. He does report in the past renal function, but he does not follow up with any physician. No reports of any NSAID use or any [id number] medications or any herbal supplements. For review his chart, his last creatinine that was found to be in the 1. no change. Seems to be more chronic in nature. REVIEW OF SYSTEMS: Pertinent positives: Right foot diabetic ulceration. The rest of 14-point review of systems have been reviewed with the patient and are negative. ALLERGIES: NO KNOWN DRUG ALLERGIES. HOME MEDICATIONS: The patient is on insulin, metoprolol, simvastatin, valsartan, Coreg, PAST MEDICAL HISTORY: Type 2 diabetes, hypertension, and BPH. PAST SURGICAL HISTORY: PHYSICAL EXAMINATION: VITAL SIGNS: Temperature is 98.6, pulse is 79, respiratory rate 20, blood pressure , pulse ox 100% on room air. GENERAL: In no acute distress. Alert and oriented x3. Cooperative on examination. HEENT: Normocephalic, atraumatic. Eyes; pupils are reactive to light bilaterally. Extraocular movements intact bilaterally. PULMONARY: Clear to auscultation bilaterally. No wheezing, rales, or rhonchi. no crackles appreciated. CARDIOVASCULAR: Positive S1 and S2. No murmurs, rubs, or gallops appreciated. Abdomen: Soft, nondistended, and nontender to palpation. Bowel sounds present. MUSCULOSKELETAL: Strength is 5/5 throughout. No evidence of any muscle deficits on examination. SKIN: Intact. Warm to touch. Good cap refill. PSYCHIATRIC: Normal affect and mood. LABORATORY DATA: WBC 16.5, hemoglobin 8.7, hematocrit 26.5, platelets 253. Chemistry, reviewed, . Coronavirus not detected. MICROBIOLOGY: Urine culture shows Gram-negative rods. Blood cultures were negative. IMAGING STUDIES: Chest x-ray on admission pneumonia. Foot x-ray is still concern for osteomyelitis. IMPRESSION: 1. Chronic kidney disease, stage IV, at baseline. 2. Diabetic foot ulcer, right leg. 3. Type 2 diabetes. 4. Hypertension. PLAN: At this time, Nephrology was consulted to evaluate for his underlying acute kidney injury. After further discussion of further review, the patient has abnormal kidney function three years ago, but since then he has not been able to see a physician. At this time, we are recommending upon discharge a Renal consultation. We will continue to work with him here in the hospital stay. , renal ultrasound. Discussed plan of care with nursing staff and the patient. MD CARMEN Simpson/ESME /[id number]
[2020-08-03 06:28] LABS: ALBUMIN/GLOBULIN RATIO 0.9 (0.8-2.0); ALKALINE PHOSPHATASE 59 IU/L (40-150); ANION GAP 16.6 mmol/L (8-16); BLOOD UREA NITROGEN 40 mg/dL (7-26); BUN/CREATININE RATIO 14 (6-25); CALCIUM 7.4 mg/dL (8.4-10.2); CARBON DIOXIDE 18 mmol/L (22-29); CHLORIDE 106 mmol/L (98-107); EST GLOMERULAR FILTRATION RATE 22 ML/MIN (60-); GLUCOSE 105 mg/dL (74-118); POTASSIUM 3.6 mmol/L (3.5-5.1); SODIUM 137 mmol/L (136-145)
--- NOTE | 2020-08-03 06:45 | NUR ---
BEDSIDE SBAR REPORT RECEIVED FROM CARLENE PALOMINO. PATIENT RECEIVED RESTING IN BED EASILY AROUSED IN NO ACUTE DISTRESS. PATIENT IS ABLE TO MAKE NEEDS KNOWN AND DENIES NEEDS AT THIS TIME. PATIENT WAS EDUCATED ON FALL RISK PRECAUTIONS AND VERBALIZED UNDERSTANDING. CALL LIGHT AND BELONGINGS PLACED NEARBY. WILL CONTINUE TO MONITOR.
[2020-08-03 06:49] LABS: ALANINE AMINOTRANSFERASE < 6 IU/L (0-55)
[2020-08-03] MEDS: FAMOTIDINE 20 MG TAB PO SCH ×2 (07:30→16:05)
[2020-08-03] MEDS: INSULIN REGULAR, HUMAN 100 UNIT/1 ML 3ML VIAL SQ SCH ×4 (07:30→20:55)
[2020-08-03] MEDS: LISINOPRIL 20 MG TAB PO SCH (08:56)
[2020-08-03] MEDS: CARVEDILOL 3.125 MG TAB PO SCH ×2 (08:56→21:04)
[2020-08-03] MEDS: TAMSULOSIN HCL 0.4 MG CAP PO SCH (08:56)
[2020-08-03] MEDS: AMLODIPINE BESYLATE 10 MG TAB PO SCH (08:56)
--- NOTE | 2020-08-03 09:05 | Progress Note ---
DATE: 08/03/2020 SUBJECTIVE: The patient is at bedside. No distress. Denies any history of fever, chills, nausea, or vomiting. OBJECTIVE: VITAL SIGNS: Afebrile. Vital signs stable. EXTREMITIES: Right foot, stable for now, has a gangrenous changes noted to the second and first digits of the right foot. Positive cellulitis with decreased circulatory status to both the DP and PT with negative drainage at this point. LABORATORY DATA: Labs show white blood cell count dropping to 14.10, hemoglobin 8.0 with hematocrit of 25.3 and with a platelet count of 330. ASSESSMENT: Peripheral arterial disease and gangrene, right foot. PLAN: We will continue local wound care. Continue IV antibiotics. We will treat conservatively until the patient is evaluated vascularly for definitive procedure. SERGIO Houston/ESME /[id number]
[2020-08-03] MEDS: INSULIN GLARGINE 100 UNITS/ML VIAL SQ SCH (09:09)
--- NOTE | 2020-08-03 10:27 | NUR ---
SECOND CALL PLACED TO DR. DIAZ TO MAKE AWARE OF CONSULT. LEFT MESSAGE WITH ANSWERING SERVICE. AWAITING A CALL BACK FROM .
--- NOTE | 2020-08-03 11:10 | NUR ---
ASSESSMENT: Spiritual concern Pt's daughter, Madai, called to request a underwriter visit for her dad. Pt relying on lio as resource. Pt states he is "an alfredo" and adventist is central to his life. Intervention: Provided empathic listening. Facilitated life review and storytelling. Outcome: Provided information on how to reach underwriter, if needed. Will follow as able. ILEANA CARDOZO Digital Marketing Assistant Spiritual Care Department O: [phone]
--- NOTE | 2020-08-03 14:08 | NUR ---
AROUND LUNCH TIME, WE RECEIVED A RETURN CALL FROM DR. GAGNON, [employer] DISTRIBUTOR TENDER FOR DR. EMILY GAGNON STATED HE DID NOT COVER THIS HOSPITAL AND WE WOULD NEED TO SPEAK WITH DR. DIAZ DIRECTLY. [id number] I PLACED A CALL TO DR. DIAZ'S OFFICE AND WAS PATCHED THROUGH DIRECTLY TO . DR. DIAZ WAS MADE AWARE OF THE CONSULT AND WILL SEE THE PATIENT TONIGHT AFTER HIS CLINIC.
[2020-08-03] MEDS ORDERED: ONDANSETRON HCL 4 MG ORAL DISINTEGRATING TAB PO PRN (15:15)
--- NOTE | 2020-08-03 19:07 | Progress Note ---
DATE: SUBJECTIVE: Mr. Quiñones is doing well. There is no new complaint. He is currently on Zyvox and cefepime. He has been seen by Podiatry. His white count is coming down to 14.1, hemoglobin 8.0. REVIEW OF SYSTEMS: Otherwise, unremarkable. PHYSICAL EXAMINATION: GENERAL: He is currently alert and oriented. VITAL SIGNS: Stable, currently afebrile. HEENT: He is not icteric. NECK: Supple. CHEST: Clear. HEART: S1, S2. ABDOMEN: Soft. Bowel sounds present. EXTREMITIES: No edema. SKIN: No rash. IMPRESSION: The foot seems to be about the same with ischemic changes, both to the second and first toe. Osteomyelitis. The patient will probably need a TMA and vascular evaluation. Continue IV antibiotics. Podiatry is following. We will follow. MD ELEANOR Oh/ESME /[id number]
[2020-08-03] MEDS: ATORVASTATIN 40 MG TAB PO SCH (21:05)
--- NOTE | 2020-08-03 22:19 | Consultation ---
DATE OF CONSULTATION: 08/03/2020 REASON FOR CONSULTATION: Dry gangrene right lower extremity, peripheral arterial disease. REQUESTED BY: Dr. Isaura Arredondo. HISTORY OF PRESENT ILLNESS: I saw and evaluated this patient on August 03, 2020. He is a 70-year-old man with known type 2 diabetes and hypertension. He is quite noncompliant. He has longstanding insulin-dependent diabetes about 20 years with a history of a left below-knee amputation. He came to the emergency room for evaluation of an ischemic right lower extremity. This has apparently been present for several weeks to months. The patient lives at home with his daughter. He was admitted for care of the ischemic toes. Noninvasive studies showed monophasic flow in the anterior tibial and absent flow in the posterior tibial at the right ankle. Pressure in the common femoral artery was 120. There was a drop-off at the mid SFA to 47 with monophasic flow. Vessels may be noncompressible. There was evidence of cellulitis on admission and he has been treated with antibiotics. Cellulitis is resolving. The patient denies any history of myocardial infarction, coronary artery stenting, or coronary artery disease. No history of chest pain. Denies stroke. Says he quit smoking 130 years ago. PAST MEDICAL HISTORY: Positive for type 2 diabetes, hypertension, and BPH. PAST SURGICAL HISTORY: Positive for left below-knee amputation. MEDICATIONS AT HOME: Include: 1. Insulin. 2. Metoprolol. 3. Simvastatin. 4. Valsartan. 5. Coreg. ALLERGIES: NONE KNOWN. SOCIAL HISTORY: Negative for smoking, alcohol, or IV drugs. REVIEW OF SYSTEMS: GENERAL: Positive for fatigue and malaise. NEUROLOGIC: Negative for focal weakness in the extremities or dysarthria. HEENT: Positive for decreased vision and decreased hearing. CARDIAC: Negative for chest pain or palpitations. PULMONARY: Negative for shortness of breath or wheezing. GI: No constipation or diarrhea. : Negative for hematuria or dysuria. ENDOCRINE: Negative for polyuria or polydipsia. VASCULAR: Positive as above. SKIN: Positive for cellulitis as noted above on the right lower extremity. Otherwise negative. HEMATOLOGIC: Negative for clotting or bleeding. INFECTIOUS: Positive as above. PSYCHIATRIC: Negative for depression or anxiety. PHYSICAL EXAMINATION: GENERAL: A chronically ill-appearing man, sitting up in bed. VITAL SIGNS: Blood pressure 130/70, pulse 80 and regular, respirations 16 and unlabored. NECK: Supple and nontender. No JVD. CARDIAC: Shows a regular rate and rhythm. There is a normal S1 and S2. There is no S3, S4, rub, or murmur. LUNGS: Clear to auscultation and percussion bilaterally. ABDOMEN: Globally benign. Good bowel sounds. No hepatosplenomegaly. BACK: No CVA tenderness. No muscular spasm. EXTREMITIES: Well-healed left below-knee amputation. On the right lower extremity, there are chronic stasis changes, which are most marked on the right foot. There is dry gangrene of digits #1 and #2. There are some surrounding cellulitis. No purulent drainage. VASCULAR: Carotids 1+/2+ bilaterally. There may be a carotid bruit on the right. Radials and ulnars 1+/2+ bilaterally. Femoral 2+/2+ bilaterally. No pulses palpable, distal to the femoral artery on the right. SKIN: Some cellulitis surrounding the eschars of the right foot, but otherwise negative. MUSCULOSKELETAL: Full range of motion at all joints. No joint swelling. NEUROLOGIC: Cranial nerves 2 through 12 intact. Sensation intact to light touch and pinprick bilaterally. Strength 5/5 in all extremities. LYMPHATIC: Negative for cervical, clavicular, femoral adenopathy. LABORATORIES AND IMAGING: Noninvasive studies of the lower extremity as above. WBC 14.1, hemoglobin 8.0, hematocrit 25.3, platelet count 16320. Sodium 137, potassium 3.6, BUN 40, creatinine 2.9. Liver function tests are normal. Albumin 3.0 and total protein 6.2. IMPRESSION: Severe peripheral arterial disease in a patient with longstanding insulin-dependent diabetes, who has previously had a left below-knee amputation. There are no palpable pulses below the right femoral artery and noninvasive studies suggest a stenosis at the mid SFA level on the right. I would recommend abdominal aortogram with right lower extremity runoff to the pedal arch to assess the arterial anatomy. Cardiology evaluation with possible stress test as well as carotid duplex to assess the possible right carotid bruit would also be beneficial. We will discuss with his other attendings. Nicolas Sanchez MD G[facility]/MODL /[id number]
[2020-08-04] VITALS (8 sets, daily range): BP systolic 106–149; BP diastolic 66–75
--- NOTE | 2020-08-04 04:04 | Progress Note ---
DATE: 08/03/2020 Renal Progress Note SUBJECTIVE: The patient is doing well today with no complaints. No overnight events. PHYSICAL EXAMINATION: VITAL SIGNS: Temperature 99.7, pulse 74, respiratory rate 20, blood pressure 153/64, and pulse ox 99% on room air. GENERAL: Not in acute distress. Alert and oriented x3. Cooperative on examination. PULMONARY: Clear to auscultation bilaterally. No wheezing, rales or rhonchi. No crackles appreciated. CARDIOVASCULAR: Positive S1, S2. No murmurs, rubs, or gallops appreciated. ABDOMEN: Soft, nondistended, and nontender to palpation. Bowel sounds present. MUSCULOSKELETAL: Strength is 5/5 throughout. No evidence of muscle deficits on examination. SKIN: Intact and warm to touch. Good cap refill. LABORATORY DATA: Show CBC; white count platelets of 330. Chemistry is reviewed. MICROBIOLOGY: Urine culture was Escherichia coli. Blood cultures, no growth to date. IMAGING STUDIES: renal ultrasound shows normal renal echogenicity. Left kidney is . IMPRESSION: 1. Chronic kidney disease, stage 4-5. 2. Diabetic foot ulcer, left leg. 3. Type 2 diabetes. 4. Hypertension. PLAN: At this time, from a Renal standpoint, his renal function is slightly increased. Renal ultrasound reviewed shows to be within normal range. I will go ahead and get repeat labs to the acute kidney injury, or at this time. We will get a.m. labs. Monitor closely. MD CARMEN Simpson/ESME /[id number]
[2020-08-04] MEDS: CEFEPIME 1GM/NS 0.9% 50 ML 50 ML IV SCH ×2 (04:56→16:52)
[2020-08-04 05:07] LABS: BASOPHILS % 0.2 % (0.0-1.0); EOSINOPHILS # (AUTO) 0.2 (0.0-0.4); EOSINOPHILS % 1.2 % (0.0-6.0); HEMATOCRIT 26.7 % (38.2-49.6); HEMOGLOBIN 8.2 g/dL (14.0-18.0); LYMPHOCYTES # (AUTO) 1.3 (1.0-3.2); LYMPHOCYTES % 9.7 % (18.0-39.1); MEAN CORPUSCULAR HEMOGLOBIN 25.6 pg (28-32); MEAN CORPUSCULAR HGB CONC 30.7 g/dL (31-35); MEAN CORPUSCULAR VOLUME 83.4 fL (81-99); MONOCYTES # (AUTO) 1.4 (0.2-0.8); NEUTROPHILS # (AUTO) 10.7 (2.1-6.9); NEUTROPHILS % 78.4 % (38.7-80.0); PLATELET COUNT 341 x10e3/uL (140-360); RED CELL DISTRIBUTION WIDTH 13.8 % (11.7-14.4)
[2020-08-04 05:26] LABS: ALBUMIN/GLOBULIN RATIO 0.9 (0.8-2.0); CALCIUM 7.8 mg/dL (8.4-10.2)
[2020-08-04] MEDS: ACETAMINOPHEN 325 MG TAB PO PRN (05:42)
[2020-08-04] MEDS: LINEZOLID 600 MG/D5W 300ML 300 ML IV SCH ×2 (05:42→18:00)
--- NOTE | 2020-08-04 06:35 | NUR ---
DRESSING TO RIGHT FOOT CHANGED.
--- NOTE | 2020-08-04 06:45 | NUR ---
BEDSIDE SBAR REPORT RECEIVED FROM CARLENE RN, PM SHIFT. PATIENT FOUND RESTING IN BED EASY TO AROUSE. PT AAOX4, ABLE TO MAKE NEEDS KNOWN, AND DENIES ANY FURTHER NEEDS. PATIENT WAS EDUCATED ON FALL RISK PRECAUTIONS AND VERBALIZED UNDERSTANDING. CALL LIGHT AND BELONGINGS PLACED NEARBY. WILL CONTINUE TO MONITOR.
[2020-08-04] MEDS: INSULIN REGULAR, HUMAN 100 UNIT/1 ML 3ML VIAL SQ SCH ×4 (07:30→21:00)
[2020-08-04] MEDS: FAMOTIDINE 20 MG TAB PO SCH ×2 (07:30→16:31)
--- NOTE | 2020-08-04 08:10 | Progress Note ---
DATE: 08/04/2020 SUBJECTIVE: Patient at bedside, in no distress. OBJECTIVE: VITAL SIGNS: Temperature 100.7, respirations 20, blood pressure 149/71, pulse rate 72 with an O2 saturation 96%. LABORATORY DATA: Labs show white blood cell count of 13.7, dropping from a peak of 17.8. Gangrenous changes noted to the 1st and 2nd toes, right foot, positive forefoot cellulitis with pedal pulses diminished. ASSESSMENT: Peripheral arterial disease with gangrenous changes noted to the 1st and 2nd toes, right foot. PLAN: Awaiting arteriogram for possible vascular intervention by Dr. Sanchez. He will continue IV antibiotics, local wound care, offloading for now. SERGIO Houston/ESME /[id number]
[2020-08-04] MEDS: TAMSULOSIN HCL 0.4 MG CAP PO SCH (08:33)
[2020-08-04] MEDS: CARVEDILOL 3.125 MG TAB PO SCH ×2 (08:33→21:09)
[2020-08-04] MEDS: AMLODIPINE BESYLATE 10 MG TAB PO SCH (08:52)
[2020-08-04] MEDS: LISINOPRIL 20 MG TAB PO SCH (08:52)
[2020-08-04] MEDS: INSULIN GLARGINE 100 UNITS/ML VIAL SQ SCH (08:53)
--- NOTE | 2020-08-04 09:10 | NUR ---
AFTER CARE PLAN AND REVIEW OF NOTES, CALL PLACED AND SPOKE DIRECTLY TO DR. DIAZ. NO NEW ORDERS AT THIS TIME. WOULD LIKE TO TALK WITH ATTENDING/CONSULTING DOCTORS
--- NOTE | 2020-08-04 10:00 | NUR ---
PHONE CALL. ORDERS RECEIVED FOR ECHO AND CAROTID DOPPLER PER DR. Barbara MONTERO
[2020-08-04] MEDS ORDERED: SODIUM CHLORIDE 0.9% 1000ML 1,000 ML IV SCH ×2 (11:00→18:00)
[2020-08-04] MEDS ORDERED: ASPIRIN 325 MG TAB EC PO ONE (12:00)
--- NOTE | 2020-08-04 14:26 | Consultation ---
DATE OF CONSULTATION: 08/04/2020 Cardiology Consultation REASON FOR CONSULTATION: Preoperative cardiovascular evaluation and right foot wound. HISTORY OF PRESENT ILLNESS: Mr. Quiñones is a 70-year-old gentleman with past medical history of hypertension, type 2 diabetes, diagnosed many years ago, hypercholesteremia, history of peripheral vascular disease with prior history of left [id number] amputation, history of prior right heel debridement surgery. The patient for the past three days has noted blackness on his right great toe and 2nd toe and is consequently found to have gangrene. The patient is noted to be septic with elevated white blood cell count, anemic as well as notable significant kidney disease with unclear baseline. Foot MRI suggested also osteomyelitis as well. In light of nonpalpable circulation in the feet, Vascular Surgery was consulted, who consequently called us for Cardiovascular Evaluation. The patient denies any discomfort or much sensation in his feet. He denies any subjective fevers or chills. He is a very limited historian. Denies any chest pain or discomfort. He fatigues easily and that is kind of his baseline. He has never had a laborer road before and denies any prior cardiovascular history. His only surgery was his left BKA five years ago and did fine from a cardiovascular standpoint. PAST MEDICAL HISTORY: 1. Hypertension. 2. BPH. 3. Chronic kidney disease. 4. Hypercholesteremia. 5. Type 2 diabetes with complications. 6. PAD with history of left BKA. PAST SURGICAL HISTORY: History of left BKA five years ago. FAMILY HISTORY: Mother at 83 with some sort of cancer. Father at 76 with diabetic complications. SOCIAL HISTORY: Nonsmoker. Denies any alcohol or illicit drug use. ALLERGIES: NO KNOWN DRUG ALLERGIES. MEDICATIONS: See electronic medical record and adopt. REVIEW OF SYSTEMS: GENERAL: Denies any fevers or chills or weight changes. HEENT: No headaches. Has decreased vision from suspected retinopathy. No nasal stuffiness, sore throat. RESPIRATORY: Denies any pleuritic chest pain. Has occasional cough, fatigues easily with exertional dyspnea. CARDIOVASCULAR: Denies any orthopnea or PND. No subjective palpitations, syncope or near syncope. GI: Denies any abdominal pain, bright red blood per rectum, melena, or hematemesis. : Does have urinary frequency, dysuria, and some incontinence at times. MUSCULOSKELETAL: Positive for left BKA, some pain with the left leg upon stretching and does have diminished sensation in his right foot and gangrenous per HPI. NEUROLOGIC: Denies any focal weakness, numbness, tingling, seizures, headache, TIA or stroke. Remainder review of systems negative otherwise mentioned. PHYSICAL EXAMINATION: VITAL SIGNS: Temperature of 98.8, pulse of 78, blood pressure 136/62, respiratory rate of 18, O2 saturation 98% on room air. GENERAL: This is a well-nourished, obese gentleman who is currently in no apparent distress. HEENT: Normocephalic and atraumatic. Pupils are equal, round, reactive to light. Extraocular movements are intact. There is diminished vision. Oropharynx is clear. NECK: No elevation of jugular venous pulsation. There is bilateral carotid bruits, right greater than left. CARDIOVASCULAR: Regular rate and rhythm. Normal S1, S2. 2/6 systolic ejection murmur at the right upper sternal border. LUNGS: Show diminished bibasilar air entry. No crackles or wheezes. ABDOMEN: Soft, nontender, obese. Normoactive bowel sounds. No hepatosplenomegaly. BACK: No costovertebral angle tenderness. EXTREMITIES: Warm with 1 to 2+ right femoral pulse, 1+ left femoral pulse diminished. Right popliteal pulse absent. Pedal pulses left BKA noted. SKIN: Gangrene over his right 1st, 2nd toe. NEUROLOGIC: Cranial nerves 3-12 are intact due to his notable for diminished vision. Strength seemingly is preserved, but poor effort. LABORATORY DATA: White count of 13.7, hemoglobin 8.2, hematocrit 36.7, and platelets of 341. Sodium 138, potassium 4.0, chloride 107, bicarb 17, BUN 42, creatinine of 3.0, glucose of 95, AST 12, ALT 6, alkaline phosphatase 64, total bilirubin 0.4, calcium of 7.8. Lower extremity ultrasound pending. Right foot MRI compatible osteomyelitis as well. DIAGNOSES: 1. Overall, patient has critical limb ischemia with gangrenous changes in his right toes in the setting of complex peripheral vascular disease, suspect predominantly infrapopliteal disease given history of diabetes. 2. Type 2 diabetes with complications. 3. Hypertension, essential. 4. Hypercholesterolemia. 5. Obesity. 6. Anemia. 7. Acute kidney injury versus chronic kidney disease, pretty substantially advanced. 8. Sepsis secondary to gangrene, osteo. PLAN/RECOMMENDATIONS: 1. We have hesitation to proceeding with a peripheral angiogram or invasive cardiac evaluation at this time due to his impaired kidney function and we are not quite sure what his baseline is. 2. He has a very high pretest probability of clinically significant coronary disease, and other atherosclerotic disease processes and interestingly also has bruits over his carotid arteries. 3. We will follow up with an echocardiogram. 4. We will check an EKG, placed on the chart. 5. We will follow up on arterial duplex. 6. We will adjust course as in therapy as clinical course dictates. 7. We will go ahead and start IV fluids to hydrate him and anticipation for perhaps invasive diabetes procedure. Perhaps, we will do it on the next couple of days once he is more optimized especially from a renal standpoint. MD BRIAN Dey/ESME /[id number] [place]
[2020-08-04] MEDS: SODIUM BICARBONATE 650 MG TAB PO SCH (18:00)
--- NOTE | 2020-08-04 18:53 | Progress Note ---
DATE: 08/04/2020 Nephrology Progress Note SUBJECTIVE: The patient is doing well with no complaints. PHYSICAL EXAMINATION: VITAL SIGNS: Temperature 98.2, pulse 67, respiratory rate is 20, blood pressure 142/66, pulse ox 99% on room air. GENERAL: No acute distress. Alert and oriented x3. Cooperative on examination. HEENT: Head is normocephalic and atraumatic. Eyes; pupils are equal, round, and reactive to light bilaterally. Extraocular movements are intact bilaterally. NECK: Supple. Good range of motion. PULMONARY: Clear to auscultation bilaterally. No wheezing, rales, or rhonchi. No crackles appreciated. CARDIOVASCULAR: Positive S1 and S2. No murmurs, rubs, or gallops appreciated. ABDOMEN: Soft, nondistended, nontender to palpation. Bowel sounds present. MUSCULOSKELETAL: Strength is 5/5 throughout. LABORATORY FINDINGS: Show white count 13, hemoglobin 8.2, hematocrit is 26.7, and platelets of 341. Chemistry; sodium 138, potassium is 4, chloride 107, bicarb 17, anion gap of 18, BUN is 42, creatinine is 3, glucose 95. Hemoglobin A1c was 9. Albumin was 3. Coronavirus nondetected. MICROBIOLOGY: Urine culture, E coli. Blood culture, no growth to date. IMAGING STUDIES: Renal ultrasound shows a right kidney 9.8 cm and left kidney 9.7 cm. Normal renal ultrasound noted. IMPRESSION: 1. Chronic kidney disease, stage 4-5. 2. Diabetic foot ulcer, left leg. 3. Type 2 diabetes. 4. Hypertension. 5. Anemia of chronic kidney disease. 6. Secondary hyperparathyroidism. PLAN: At this time from a Renal standpoint, his renal function seems to be chronic in nature. We will go ahead and add sodium bicarbonate tabs at 1300 mg p.o. b.i.d., put on a low-dose of NS at 75 mL/h up to 1 L and then stop. Get urine studies of urine protein to creatinine, microalbumin to creatinine ratio. I will go ahead and get a phosphorus level, intact PTH level, and iron studies. We will continue to monitor very closely. Get a.m. labs. MD CARMEN Simpson/MODL /[id number]
--- NOTE | 2020-08-04 19:33 | Progress Note ---
DATE: SUBJECTIVE: Mr. Quiñones is doing well. There are no new complaints. He has been seen by Cardiology. REVIEW OF SYSTEMS: Otherwise is negative. PHYSICAL EXAMINATION: GENERAL: He is currently alert and oriented. VITAL SIGNS: Stable. Currently afebrile. HEENT: He is not icteric. NECK: Supple. CHEST: Clear. HEART: S1, S2. ABDOMEN: Soft. Bowel sounds present. EXTREMITIES: There is no edema. White count 15.7. His hemoglobin 8.2. His left BKA site is fine. His right foot, there is gangrene noted on 1st and 2nd toe. IMPRESSION: Osteomyelitis infection of right 1st and 2nd toe. Gangrene changes. Vascular workup is in progress. Continue IV antibiotic. May end up with amputation, the level to be determined. Continue with cefepime for the time being and linezolid. Chronic kidney disease, diabetes with neuropathy. We will follow. MD ELEANOR Oh/ESME /[id number]
[2020-08-04] MEDS: ATORVASTATIN 40 MG TAB PO SCH (21:08)
[2020-08-05] VITALS (8 sets, daily range): BP systolic 107–148; BP diastolic 45–73
--- NOTE | 2020-08-05 01:34 | Progress Note ---
DATE: 08/04/2020 REASON FOR PROGRESS NOTE: Dry gangrene in right lower extremity, peripheral arterial disease. REQUESTED BY: Dr. Isaura Arredondo. SUBJECTIVE: The patient is clinically stable today. Gangrene unchanged. Evaluation continues. REVIEW OF SYSTEMS: No chest pain, shortness of breath, neurologic changes, or fever. Right lower extremity not painful, but still Somewhat erythematous. PHYSICAL EXAMINATION: VITAL SIGNS: Blood pressure 130/75, pulse 80 and regular, respirations 16 and unlabored. NECK: Supple and nontender. No JVD. CARDIAC: Shows a regular rate and rhythm. Normal S1 and S2. No S3 or S4. LUNGS: Clear to auscultation and percussion bilaterally. ABDOMEN: Globally benign. Good bowel sounds. EXTREMITIES: Some cellulitis surrounding the distal dry gangrene, but this is less than yesterday. Minimal edema. LABORATORY DATA: White count 13.7, hemoglobin 8.2, hematocrit 26.7, and platelet count 341,000. Sodium 138, potassium 4.0, BUN 42, creatinine 3.0. LFTs are normal. IMPRESSION: The patient was evaluated by Cardiology. We planned studies once cardiac and vascular studies are planned once he recovers somewhat from the infection. We will follow. MD GARCIA Gallagher/MODL /[id number]
[2020-08-05 03:47] LABS: CREATININE,URINE RANDOM 104.99 mg/dL (63-166); TOTAL PROTEIN, URINE 183.9 mg/dL (1-14)
[2020-08-05] MEDS: CEFEPIME 1GM/NS 0.9% 50 ML 50 ML IV SCH ×2 (04:34→16:20)
[2020-08-05] MEDS: LINEZOLID 600 MG/D5W 300ML 300 ML IV SCH ×2 (05:26→17:45)
[2020-08-05 06:04] LABS: BASOPHILS # (AUTO) 0.1 (0.0-0.1); BASOPHILS % 0.4 % (0.0-1.0); EOSINOPHILS # (AUTO) 0.3 (0.0-0.4); EOSINOPHILS % 2.1 % (0.0-6.0); HEMATOCRIT 27.2 % (38.2-49.6); HEMOGLOBIN 8.2 g/dL (14.0-18.0); LYMPHOCYTES # (AUTO) 1.4 (1.0-3.2); LYMPHOCYTES % 11.4 % (18.0-39.1); MEAN CORPUSCULAR HEMOGLOBIN 25.2 pg (28-32); MEAN CORPUSCULAR HGB CONC 30.1 g/dL (31-35); MEAN CORPUSCULAR VOLUME 83.7 fL (81-99); MONOCYTES # (AUTO) 1.2 (0.2-0.8); MONOCYTES % 9.9 % (4.4-11.3); NEUTROPHILS # (AUTO) 9.5 (2.1-6.9); NEUTROPHILS % 75.6 % (38.7-80.0); PLATELET COUNT 340 x10e3/uL (140-360); RED BLOOD COUNT 3.25 x10e6/uL (4.3-5.7); RED CELL DISTRIBUTION WIDTH 13.8 % (11.7-14.4)
[2020-08-05 06:27] LABS: ALBUMIN 2.9 g/dL (3.5-5.0); ALBUMIN/GLOBULIN RATIO 0.9 (0.8-2.0); CALCIUM 7.6 mg/dL (8.4-10.2); CREATININE, SERUM 2.94 mg/dL (0.72-1.25)
[2020-08-05 06:50] LABS: MAGNESIUM 2.1 MG/DL (1.3-2.1); PHOSPHORUS 4.6 MG/DL (2.3-4.7)
[2020-08-05 07:02] LABS: FERRITIN 169.58 ng/mL (21.81-274.66)
[2020-08-05] MEDS: FAMOTIDINE 20 MG TAB PO SCH ×2 (07:30→16:20)
[2020-08-05] MEDS: INSULIN REGULAR, HUMAN 100 UNIT/1 ML 3ML VIAL SQ SCH ×4 (07:30→21:00)
[2020-08-05] MEDS: TAMSULOSIN HCL 0.4 MG CAP PO SCH (08:27)
[2020-08-05] MEDS: CARVEDILOL 3.125 MG TAB PO SCH ×2 (08:27→21:00)
[2020-08-05] MEDS: ASPIRIN 81 MG ENTERIC COATED PO SCH (08:27)
[2020-08-05] MEDS: SODIUM BICARBONATE 650 MG TAB PO SCH ×2 (08:27→16:36)
[2020-08-05] MEDS: AMLODIPINE BESYLATE 10 MG TAB PO SCH (08:28)
[2020-08-05] MEDS: INSULIN GLARGINE 100 UNITS/ML VIAL SQ SCH (09:17)
[2020-08-05] MEDS ORDERED: SODIUM CHLORIDE 0.9% 1000ML 1,000 ML ONE (12:01)
--- NOTE | 2020-08-05 14:21 | Progress Note ---
DATE: 08/05/2020 SUBJECTIVE: The patient is seen at bedside, in no distress. Decreased discomfort to the right lower extremity. OBJECTIVE: VITAL SIGNS: Afebrile, pulse rate 66, respirations 19, blood pressure 107/46, and O2 saturation 92%. EXTREMITIES: Gangrenous changes noted to the distal aspect of the right great toe and 2nd toe right foot are stable for now. There is positive cellulitis. Pedal pulses diminished. LABORATORY DATA: Noted. White blood cell count of 12.56. ASSESSMENT: Peripheral arterial disease with gangrene and cellulitis. PLAN: We will continue local wound care. Continue IV antibiotics such as cefepime IV. Continue offloading. Awaiting vascular intervention per Dr. Sanchez before definitive procedure can be done. The patient understands amputation will need to be done. Extent of amputation undetermined at this time. SERGIO Houston/ESME /[id number]
[2020-08-05] MEDS ORDERED: SODIUM CHLORIDE 0.9% 1000ML 1,000 ML IV ONE (14:30)
--- NOTE | 2020-08-05 15:32 | Progress Note ---
DATE: 08/05/2020 Nephrology Progress Note SUBJECTIVE: The patient reportedly is doing well today with no complaints. No overnight events. Renal function is slightly downtrending with initiation of low-dose IV fluids. PHYSICAL EXAMINATION: VITAL SIGNS: Temperature is 99, pulse 66, respiratory rate is 19, blood pressure 107/46, and pulse ox 94% on room air. GENERAL: Not in acute distress. Alert and oriented x3. Cooperative on examination. PULMONARY: Clear to auscultation bilaterally. No wheezing, no rales, no rhonchi, no crackles appreciated. CARDIOVASCULAR: Positive S1 and S2. No murmurs, rubs, or gallops appreciated. ABDOMEN: Soft, nondistended, and nontender to palpation. Bowel sounds present. MUSCULOSKELETAL: Strength is 5/5 throughout. No evidence of any muscle deficits on examination. No weakness appreciated. NEUROLOGIC: Cranial nerves 2 through 12 grossly intact. No evidence of any neurological deficits on exam. . PSYCHIATRIC: Normal affect and mood. EXTREMITIES: No edema. Good range of motion throughout. LABORATORY DATA: Show white count is 12.6, hemoglobin is 8.2, hematocrit is 26.7, and platelets of 340. Chemistry; sodium 137, potassium 4.0, chloride 105, bicarb 17, anion gap of 19, BUN is . Iron saturation 11%. Intact PTH is pending. Phosphorus level 4.6. Magnesium 2.1. Calcium 7.6. MICROBIOLOGY: Noted. IMAGING STUDIES: None. IMPRESSION: 1. Chronic kidney disease, stage 4-5. 2. Diabetic foot ulcer, left foot. 3. Type 2 diabetes. 4. Hypertension. 5. Anemia of chronic kidney disease. 6. Secondary hyperparathyroidism. PLAN: At this time from a Renal standpoint, his renal function is slightly improved with normal saline, which we will go ahead and continue for one more day and then stop. We will continue with sodium bicarbonate tablets 1300 mg p.o. b.i.d. Does have underlying iron deficiency anemia, which we will go ahead and initiate on oral iron. Intact PTH levels are pending. Continue to follow with primary team. The patient has underlying chronic kidney disease and . MD CARMEN Simpson/VIKL /[id number]
--- NOTE | 2020-08-05 16:47 | Progress Note ---
DATE: SUBJECTIVE: Mr. Quiñones is doing well. There is no new complaint. REVIEW OF SYSTEMS: Otherwise, HEENT: Negative. PULMONARY: Negative. CARDIAC: Negative. PHYSICAL EXAMINATION: GENERAL: Currently alert, oriented. VITAL SIGNS: Stable, afebrile. HEENT: He is not icteric. NECK: Supple. CHEST: Clear. HEART: S1 and S2. No S3, S4, or murmur. ABDOMEN: Soft. Bowel sounds present. EXTREMITIES: No edema. SKIN: No rash. LABORATORY DATA: His white count 12.6 and hemoglobin 8.2. IMPRESSION: Diabetic foot ulcer on the left, ischemic, chronic kidney disease, diabetes mellitus with neuropathy. Vascular workup is in progress. May end up with TMA. Continue antibiotic. Continue supportive care. Continue vascular workup. Further recommendations to follow. MD ELEANOR Oh/ESME /[id number]
--- NOTE | 2020-08-05 19:05 | NUR ---
Bedside rounds completed with morning nurse. Pt alert and oriented to name, lying in bed HOB 30 degrees, denies pain at this time. Call light within reach.
[2020-08-05] MEDS: ATORVASTATIN 40 MG TAB PO SCH (21:00)
[2020-08-06] VITALS (8 sets, daily range): BP systolic 115–130; BP diastolic 54–78
[2020-08-06] MEDS: CEFEPIME 1GM/NS 0.9% 50 ML 50 ML IV SCH ×2 (04:45→16:21)
[2020-08-06] MEDS: LINEZOLID 600 MG/D5W 300ML 300 ML IV SCH ×2 (06:00→18:16)
[2020-08-06 06:23] LABS: BASOPHILS % 0.3 % (0.0-1.0); EOSINOPHILS # (AUTO) 0.2 (0.0-0.4); EOSINOPHILS % 1.6 % (0.0-6.0); HEMATOCRIT 26.2 % (38.2-49.6); HEMOGLOBIN 8.3 g/dL (14.0-18.0); LYMPHOCYTES # (AUTO) 1.2 (1.0-3.2); LYMPHOCYTES % 9.1 % (18.0-39.1); MEAN CORPUSCULAR HEMOGLOBIN 26.9 pg (28-32); MEAN CORPUSCULAR HGB CONC 31.7 g/dL (31-35); MEAN CORPUSCULAR VOLUME 85.1 fL (81-99); MONOCYTES # (AUTO) 1.2 (0.2-0.8); NEUTROPHILS # (AUTO) 10.7 (2.1-6.9); NEUTROPHILS % 79.5 % (38.7-80.0); PLATELET COUNT 321 x10e3/uL (140-360); RED BLOOD COUNT 3.08 x10e6/uL (4.3-5.7); RED CELL DISTRIBUTION WIDTH 13.8 % (11.7-14.4)
[2020-08-06 07:12] LABS: ALBUMIN 2.9 g/dL (3.5-5.0); ALBUMIN/GLOBULIN RATIO 0.9 (0.8-2.0); ANION GAP 17.1 mmol/L (8-16); CALCIUM 7.6 mg/dL (8.4-10.2); CREATININE, SERUM 3.08 mg/dL (0.72-1.25); POTASSIUM 4.1 mmol/L (3.5-5.1)
[2020-08-06] MEDS: INSULIN REGULAR, HUMAN 100 UNIT/1 ML 3ML VIAL SQ SCH ×4 (07:30→21:00)
[2020-08-06] MEDS: ASPIRIN 81 MG ENTERIC COATED PO SCH (09:07)
[2020-08-06] MEDS: FAMOTIDINE 20 MG TAB PO SCH ×2 (09:07→16:21)
[2020-08-06] MEDS: CARVEDILOL 3.125 MG TAB PO SCH ×2 (09:08→21:00)
[2020-08-06] MEDS: AMLODIPINE BESYLATE 10 MG TAB PO SCH (09:09)
[2020-08-06] MEDS: TAMSULOSIN HCL 0.4 MG CAP PO SCH (09:10)
[2020-08-06] MEDS: SODIUM BICARBONATE 650 MG TAB PO SCH ×2 (09:10→16:22)
[2020-08-06] MEDS: INSULIN GLARGINE 100 UNITS/ML VIAL SQ SCH (09:11)
--- NOTE | 2020-08-06 16:01 | NUR ---
progress note Patient was seen and examined chart reviewed events noted medication list reviewed lab data reviewed and discussed with medical team patient with no new complaints and review of systems there is no new data today Mr. Quiñones is doing well. There is no new complaint. REVIEW OF SYSTEMS: Otherwise, All negative HEENT: Negative. PULMONARY: Negative. CARDIAC: Negative. PHYSICAL EXAMINATION: GENERAL: Currently alert, oriented. VITAL SIGNS: Stable, afebrile. HEENT: He is not icteric. NECK: Supple. CHEST: Clear. HEART: S1 and S2. No S3, S4, or murmur. ABDOMEN: Soft. Bowel sounds present. EXTREMITIES: No edema. SKIN: No rash. LABORATORY DATA: His white count 12.6 and hemoglobin 8.2. IMPRESSION: Diabetic foot ulcer on the left, ischemic, chronic kidney disease, diabetes mellitus with neuropathy. Vascular workup is in progress. May end up with TMA. Continue antibiotic. Continue supportive care. Continue continue workup as ordered
--- NOTE | 2020-08-06 19:15 | NUR ---
Report received from morning nurse. Pt alert and oriented to name, lying in bed HOB 45 degrees, denies pain at this time. Call light within reach.
[2020-08-06] MEDS: ATORVASTATIN 40 MG TAB PO SCH (21:00)
[2020-08-06] MEDS ORDERED: SODIUM CHLORIDE 0.9% 1000ML 1,000 ML IV SCH ×2 (21:45→23:50)
[2020-08-07] VITALS (8 sets, daily range): BP systolic 107–144; BP diastolic 63–70
[2020-08-07] MEDS: CEFEPIME 1GM/NS 0.9% 50 ML 50 ML IV SCH ×2 (05:00→16:09)
[2020-08-07] MEDS: LINEZOLID 600 MG/D5W 300ML 300 ML IV SCH ×2 (06:00→17:05)
--- NOTE | 2020-08-07 07:00 | NUR ---
BEDSIDE SHIFT REPORT RECEIVED FROM THE MATERIALS HANDLING COORDINATOR RN. EDUCATED PT ABOUT FALL PRECAUTIONS. PT VERBALIZED UNDERSTANDING. BED IS LOW AND LOCKED. SIDE RAILS X2. CALL LIGHT WITH IN EASY REACH. PT DENIES NEEDS AT THIS TIME.
[2020-08-07 07:07] LABS: BASOPHILS % 0.3 % (0.0-1.0); EOSINOPHILS # (AUTO) 0.3 (0.0-0.4); EOSINOPHILS % 2.1 % (0.0-6.0); HEMATOCRIT 26.7 % (38.2-49.6); HEMOGLOBIN 8.3 g/dL (14.0-18.0); LYMPHOCYTES # (AUTO) 1.3 (1.0-3.2); LYMPHOCYTES % 10.3 % (18.0-39.1); MEAN CORPUSCULAR HEMOGLOBIN 26.6 pg (28-32); MEAN CORPUSCULAR HGB CONC 31.1 g/dL (31-35); MEAN CORPUSCULAR VOLUME 85.6 fL (81-99); MONOCYTES % 8.1 % (4.4-11.3); NEUTROPHILS # (AUTO) 10.1 (2.1-6.9); NEUTROPHILS % 78.8 % (38.7-80.0); PLATELET COUNT 289 x10e3/uL (140-360); RED BLOOD COUNT 3.12 x10e6/uL (4.3-5.7); RED CELL DISTRIBUTION WIDTH 13.7 % (11.7-14.4)
[2020-08-07 07:12] LABS: INR 1.05; PROTHROMBIN TIME 14.2 seconds (11.9-14.5)
[2020-08-07 07:20] LABS: ALBUMIN 2.8 g/dL (3.5-5.0); ALBUMIN/GLOBULIN RATIO 0.9 (0.8-2.0); ANION GAP 13.3 mmol/L (8-16); CALCIUM 7.5 mg/dL (8.4-10.2); CREATININE, SERUM 2.83 mg/dL (0.72-1.25); POTASSIUM 4.3 mmol/L (3.5-5.1)
[2020-08-07] MEDS: INSULIN REGULAR, HUMAN 100 UNIT/1 ML 3ML VIAL SQ SCH ×4 (07:30→20:59)
[2020-08-07] MEDS: FAMOTIDINE 20 MG TAB PO SCH ×3 (07:30→16:09)
--- NOTE | 2020-08-07 07:59 | NUR ---
PT BLOOD SUGAR IS 82. PT IS ON NPO. JAY CHEN VP [employer] AND REPORTED THE SAME.
[2020-08-07] MEDS ORDERED: DEXTROSE 5%/0.9% SOD CHL 1,000 ML IV ONE (08:00)
[2020-08-07] MEDS: ASPIRIN 81 MG ENTERIC COATED PO SCH (09:00)
[2020-08-07] MEDS: INSULIN GLARGINE 100 UNITS/ML VIAL SQ SCH (09:00)
--- NOTE | 2020-08-07 09:00 | NUR ---
NO SCD PER MIAH CHIU
--- NOTE | 2020-08-07 09:45 | NUR ---
WALKING ROUND MADE. PT IS AAOX3. PT DENIES NEEDS AT THIS TIME.
--- NOTE | 2020-08-07 09:52 | NUR ---
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
--- NOTE | 2020-08-07 10:11 | NUR ---
PT OFF UNIT FOR PROCEDURE IN SAFE CONDITION.
[2020-08-07] MEDS ORDERED: MIDAZOLAM HCL 2 MG/2 ML VIAL ONE (10:43)
[2020-08-07] MEDS ORDERED: LIDOCAINE HCL 2% LOCAL 20 ML VIAL ONE (10:43)
[2020-08-07] MEDS ORDERED: FENTANYL CITRATE/PF 100MCG/2 ML INJ ONE (10:43)
[2020-08-07] MEDS ORDERED: IOPAMIDOL 300MG/ML 100 ML INFUS..BTL IV ONE (10:44)
[2020-08-07] MEDS ORDERED: HEPARIN SOD/SOD CHLORIDE 2,000 ML ONE (10:44)
--- NOTE | 2020-08-07 11:35 | NUR ---
PT BACK TO UNIT FROM [address] [facility]. PT IS AAOX3. DRESSING ON LEFT GROIN CDI. PT DENIES NEEDS AT THIS TIME. PT CAN RESUME DIET PER [facility] [facility].
[2020-08-07] MEDS: CARVEDILOL 3.125 MG TAB PO SCH ×2 (12:26→21:15)
[2020-08-07] MEDS: TAMSULOSIN HCL 0.4 MG CAP PO SCH (12:26)
[2020-08-07] MEDS: AMLODIPINE BESYLATE 10 MG TAB PO SCH (12:27)
[2020-08-07] MEDS: SODIUM BICARBONATE 650 MG TAB PO SCH ×2 (12:27→16:09)
[2020-08-07] MEDS: SODIUM CHLORIDE 0.9% 1000ML 1,000 ML IV SCH (13:00)
--- NOTE | 2020-08-07 14:45 | Progress Note ---
DATE: 08/06/2020 SUBJECTIVE: The patient is at bedside, in no distress. He is denying any history of fever, chills, nausea, or vomiting. OBJECTIVE: VITAL SIGNS: Afebrile. Vital signs are stable. Right great toe stable with gangrenous changes noted to the first and second toes with cellulitis of the midfoot area. LABORATORY DATA: Showed white blood cell count of 13.4, negative drainage. Pedal pulses diminished. ASSESSMENT: Peripheral arterial disease with gangrene, cellulitis, right foot with neuropathy. PLAN: Continue IV antibiotics. Continue local wound care. Awaiting vascular intervention before any surgery we perform. SERGIO Houston/ESME /[id number]
--- NOTE | 2020-08-07 14:54 | Progress Note ---
DATE: 08/07/2020 SUBJECTIVE: The patient is seen at bedside. Decreased discomfort to the right lower extremity. The patient is scheduled for a cardiac cath per Dr. Buitrago on this date. OBJECTIVE: VITAL SIGNS: Afebrile, pulse rate 66, respirations 20, blood pressure 130/67, and O2 saturation 95%. EXTREMITIES: Pedal pulses diminished to both the right lower extremity. Gangrenous changes noted to the 1st and 2nd toes, right foot with cellulitis to the mid foot aspect of the right lower extremity. LABORATORY DATA: Show white blood cell count of 12.8. ASSESSMENT: Peripheral arterial disease, gangrene, and cellulitis. PLAN: We will continue local wound care. Continue IV antibiotics. The patient will be scheduled for surgical intervention this . Continue let the foot demarcate. SERGIO Houston/ESME /[id number]
--- NOTE | 2020-08-07 15:05 | Progress Note ---
DATE: 08/06/2020 Nephrology Progress Note SUBJECTIVE: The patient is doing well today with no complaints. PHYSICAL EXAMINATION: VITAL SIGNS: Temperature 98.3, pulse 65, respiratory rate is 18, blood pressure 129/74, and pulse ox 100% on room air. GENERAL: Not in acute distress. Alert and oriented x3. Cooperative on examination. HEENT: Head; normocephalic, atraumatic. Eyes; pupils are equal, round, and reactive to light bilaterally. Extraocular movements intact bilaterally. NECK: Supple. Good range of motion. PULMONARY: Clear to auscultation bilaterally. No wheezing, no rales, no rhonchi, no crackles appreciated. ABDOMEN: Soft, nondistended, and nontender to palpation. Bowel sounds present. MUSCULOSKELETAL: Strength is 5/5 throughout. SKIN: Intact. Warm to touch. Good cap refill. LABORATORY DATA: CBC; white count 13, hemoglobin 8.2, hematocrit is 26, and platelets of 321. Chemistry reviewed; sodium 135, potassium 4.1, chloride 104, bicarb 18, anion gap of 17, BUN is 45, and creatinine is 3.08. MICROBIOLOGY: Noted. IMAGING STUDIES: Noted. IMPRESSION: 1. Acute kidney injury on chronic kidney disease, stage 4-5. 2. Diabetic foot ulcer, left foot. 3. Type 2 diabetes. 4. Hypertension. 5. Anemia of chronic disease. 6. Secondary hyperparathyroidism. PLAN: From a renal standpoint, renal function uptrended today. Put him on normal saline. Does not seem like he is drinking a whole lot. It seems like he is at his baseline in terms of his renal function. Continue with sodium bicarbonate tablets. There is evidence of iron deficiency anemia, in which iron has been initiated. Intact PTH is pending. We will continue to monitor very closely. His overall renal dysfunction likely secondary to diabetic nephropathy and hypertension. MD CARMEN Simpson/MODL /[id number]
--- NOTE | 2020-08-07 16:00 | NUR ---
4 HR BED REST COMPLETED. LEFT GROIN HEART CATH SITE IS [facility]. CHECKED PEDAL PULSES. PT IS AAOX3. PT DENIED FURTHER NEEDS.
--- NOTE | 2020-08-07 16:51 | NUR ---
Nutrition Screen Note RD Recommendation for Physician: - Continue current diet Plan of Care: RD following, monitoring for tolerance and adequacy Nutrition reason for involvement: LOS Primary Diagnose(s): cellulitis of R foot, gangrene toe of R foot PMH: DM, PVD, HTN, severe neuropathy, L BKA Ht: 65 in Wt: 208 lb BMI: 34.6 kg/m2 AIBW: [address] Assessment: (08/07) 70 YOM admitted for gangrene of toe on R foot, seen today for LOS. 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 Pt denies wt loss and denies GI distress. Pt with no questions or concerns at time of visit. Pt s/p L heart cath today and now with CKD4 with secondary hyperparathyroidism per MD notes. Pt discussed during MDR. Chart reviewed. Labs and meds reviewed. Will continue to monitor. Current Diet: 1800 ADA Malnutrition Evaluation (08/07/20) The patient does not meet criteria for a specified degree of malnutrition at this time. Will re-evaluate at follow-up as appropriate. Diet Education Needs Assessment: Diet education not indicated. Diet tolerance: tolerating po Nutrition Care Level: low Signed: Dorothea Darden RD, LD, CNSC
--- NOTE | 2020-08-07 17:00 | NUR ---
DR. Mac MONTERO AT BEDSIDE.
--- NOTE | 2020-08-07 19:00 | NUR ---
BEDSIDE SHIFT REPORT GIVEN TO THE RESPIRATORY CARE TECHNICIAN RN. PT DENIED FURTHER NEEDS.
--- NOTE | 2020-08-07 19:47 | Operative Report ---
DATE OF PROCEDURE: 08/07/2020 SURGEON: Luiz Buitrago MD PROCEDURES PERFORMED: 1. Left heart cardiac catheterization with pulmonary angiography. 2. Abdominal aortogram with bilateral lower extremity runoff. 3. Contralateral third-order angiography of the right common femoral artery runoff. 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 Had a very abnormal noninvasive evaluation with an arterial duplex and as a result, needs definitive outlining of peripheral circulation prior to undertaking revascularization options. The patient is with high pretest probability of CAD and has class 3 equivalent anginal symptoms and needs ischemic evaluation with a heart catheterization prior to clearing for any sort of operations. The patient of note has significant renal impairment and we are going to be as conservative as possible as far as contrast goes. DESCRIPTION OF PROCEDURE: After risks, benefits, pros and cons of today's procedure were explained and the patient agreed to proceed. He was brought to the cardiac catheterization laboratory, where the left groin was prepped and draped in usual sterile fashion. A 1% lidocaine solution was used to numb the left femoral arteries and access to left femoral artery was obtained. Utilizing a micropuncture system, we placed a short 6-Kinyarwanda femoral sheath. Selective coronary angiography of the [place] left and right coronary artery was performed with JL4 and 3DRC diagnostic catheters. Afterwards, we took an Omniflush catheter, placed it into the lower abdominal aorta and utilizing digital subtraction angiography, abdominal aortogram with bilateral iliofemoral angiography was performed. Utilizing a 0.035 Terumo Advantage Glidewire, we crossed over to the contralateral right common femoral artery and advanced the catheter there and performed right lower extremity runoff. At that point in time, we made enough diagnostic pictures to figure out his anatomy and we elected to stop these, so we can consider for different revascularization options. At the conclusion of the case, the sheath was removed and a 6-Kinyarwanda Mynx closure device was successfully deployed achieving hemostasis. COMPLICATIONS: None. ESTIMATED BLOOD LOSS: None. FINDINGS: 1. Left main has 40% distal stenosis, gives rise to an LAD and circumflex branch. 2. The LAD has a . First diagonal branch with 70% proximal stenosis. The LAD itself is with diffuse rhmr-wj-xlclyuxq disease throughout, typical vessels and small caliber vessels. 3. Left circumflex artery has a 50% proximal stenosis, followed by 70% mid circumflex artery stenosis, followed by a 50% stenosis as it enters the largest marginal branch, which is an OM2 branch. This vessel again has stima of diabetic vasculature with a small caliber vessel. 4. RCA is dominant, gives rise to right PDA and right PLV branch. RCA is with diffuse 30% to 40% stenosis throughout as a typical vessel. 5. Abdominal aortogram reveals bilateral common iliac artery. 6. The bilateral common iliac arteries has mild irregularity. 7. The right external iliac artery has 30% stenosis. 8. Left external iliac arteries with 40% stenosis. 9. The bilateral common femoral artery has mild irregularities. 10. The right SFA has 75% proximal, followed by 95% stenosis in the mid SFA, followed by 70% stenosis in the distal SFA. 11. The right popliteal artery is noted to have a coronary stent in the distal segment and goes into the proximal right anterior tibial artery. There is about 70% to 80% in-segment restenosis in the distal right popliteal artery, which is in-segment restenosis. 12. The right TP trunk is subtotaled and occluded. 13. The right peroneal and posterior tibial arteries are occluded throughout his leg. 14. The right anterior tibial artery has mild diffuse disease proximally. In the distal right SFA, there is a stent that is occluded. 15. There are faint collaterals going into the foot from the anterior tibial artery, but the foot is just severely diseased throughout. PLAN/RECOMMENDATIONS: 1. From a coronary standpoint, the patient has two-vessel CAD with a moderate LAD lesion and a severe left circumflex artery lesion, though no critical stenoses noted. His anatomy would likely tolerate vascular operation. 2. We will review peripheral angiogram findings with Dr. Sanchez of Vascular Surgery and see how he would like to proceed. The patient is definitely with a very complicated anatomy and much to our surprise, he has had previous revascularizations of the right lower extremity, which he cannot recall with definite coronary stents in the distal right popliteal artery entering into the anterior tibial artery as well as the distal right anterior tibial artery. There was only one vessel runoff to the foot being anterior tibial artery. 3. For this procedure, we used about 35 to 40 mL of contrast, which is more amount and the case so we can hydrate him and minimize risk for contrast nephropathy. MD BRIAN Dey/VIKL /[id number]
[2020-08-07] MEDS: ATORVASTATIN 40 MG TAB PO SCH (21:15)
--- NOTE | 2020-08-07 21:15 | NUR ---
PATIENT RESTING IN BED IN STABLE CONDITION, NO SIGNS OF DISTRESS NOTED. IV FLUIDS ARE RUNNING AT ORDERED RATE, PATIENT VOICES NO PAIN AT THIS TIME. DRESSING TO RIGHT FOOT IS CLEAN, DRY, AND INTACT, NO DRAINAGE NOTED. BED IS IN LOW POSITION, BOTH SIDE RAILS ARE UP, CALL LIGHT IS WITHIN EASY REACH, WILL CONTINUE TO MONITOR.
--- NOTE | 2020-08-07 21:32 | Progress Note ---
DATE: 08/07/2020 REASON FOR PROGRESS NOTE: Dry gangrene of right lower extremity, peripheral arterial disease; requested by Dr. Isaura Arredondo. SUBJECTIVE: The patient is clinically stable. Status post cardiac catheterization with peripheral angiogram. Gangrene unchanged. REVIEW OF SYSTEMS: No chest pain, shortness of breath, neurologic changes, or fever. Right lower extremity, not painful. Dry gangrene stable. PHYSICAL EXAMINATION: VITAL SIGNS: Blood pressure 135/80, pulse 80 and regular, respirations 16 and unlabored. NECK: Supple and nontender. No JVD. CARDIAC: Regular rate and rhythm including normal S1 and S2. No S3 or S4. LUNGS: Clear to percussion bilaterally. ABDOMEN: Globoid. Benign. Good bowel sounds. EXTREMITIES: Cellulitis surrounding the distal dry gangrene of the foot is resolving. Minimal edema. Dry gangrene, unchanged. LABORATORIES: White count 12.8, hemoglobin 8.3, hematocrit 26.7, and platelet count of 289,000. INR 1.05. IMAGING: Cardiac catheterization and peripheral angiogram are reviewed. There are further multiple high-grade lesions in the superficial femoral artery. There is also a lesion with stent placement in the distal anterior tibial. There is one vessel runoff, which is the anterior tibial to the ankle. Inflow does not show any hemodynamically significant lesion. IMPRESSION: Severe peripheral vascular disease. Will assess the possibility for lower extremity venous bypass and obtain vein mapping. Will discuss possible revascularization with the patient's other physician. MD GARCIA Gallagher/ESME /[id number] [place]
--- NOTE | 2020-08-07 22:43 | Progress Note ---
DATE: SUBJECTIVE: Mr. Quiñones is doing well. There is no new complaint. REVIEW OF SYSTEMS: HEENT: Negative. PULMONARY: Negative. CARDIAC: Negative. The patient underwent debridement today by Dr. Mendoza. Vascular workup is still in progress. PHYSICAL EXAMINATION: GENERAL: He is currently alert and oriented. VITAL SIGNS: Stable, currently afebrile. HEENT: He is not icteric. NECK: Supple. CHEST: Clear. HEART: S1 and S2. ABDOMEN: Soft. Bowel sounds present. EXTREMITIES: No edema. IMPRESSION: Infection of the foot, osteomyelitis, peripheral vascular disease, chronic kidney disease. Continue cefepime and Zyvox. Await vascular workup. Surgical debridement per Podiatry. We will follow. MD ELEANOR Oh/MODL /[id number]
[2020-08-08] VITALS: BP 134/69
[2020-08-08] MEDS: SODIUM CHLORIDE 0.9% 1000ML 1,000 ML IV SCH ×3 (00:50→17:45)
--- NOTE | 2020-08-08 02:33 | Progress Note ---
DATE: 08/07/2020 Nephrology Progress Note SUBJECTIVE: The patient doing well today with no complaints. No overnight events. PHYSICAL EXAMINATION: VITAL SIGNS: Afebrile. Normotensive. Respiratory rate is good. GENERAL: In no acute distress. Alert and oriented x3. Cooperative on examination. HEENT: Head; normocephalic and atraumatic. Eyes; pupils are equal, round, and reactive bilaterally. Extraocular movements intact bilaterally. Throat; no evidence of erythema or exudates in the posterior pharynx. Has poor dentition. NECK: Supple. Good range of motion. PULMONARY: Clear to auscultation bilaterally. No wheezing, rales, or rhonchi. No crackles appreciated. CARDIOVASCULAR: Positive S1 and S2. No murmurs, rubs, or gallops. ABDOMEN: Soft, nondistended, and nontender to palpation. Bowel sounds present. MUSCULOSKELETAL: Strength is 5/5 throughout. LABORATORY DATA: Labs show white count 12.8, hemoglobin 8.3, hematocrit 26.7, platelets of 289. Chemistry shows an improved creatinine downtrended to 2.83. The rest electrolytes are stable. MICROBIOLOGY: Noted. IMAGING STUDIES: Carotid Doppler shows no evidence of any severe plaque. IMPRESSION: 1. Acute kidney injury on chronic kidney disease, stage 4-5. 2. Left foot diabetic foot ulcer. 3. Type 2 diabetes. 4. Hypertension. 5. Anemia of chronic disease. 6. Secondary hyperparathyroidism. PLAN: At this time, renal function improving. Continue with low-dose IV fluids. Monitor electrolytes closely. Continue with sodium bicarbonate tabs. Pending intact PTH. Renal dysfunction secondary to diabetic nephropathy and hypertension. We will continue to monitor. MD CARMEN Simpson/MODL /[id number]
[2020-08-08 04:00] VITALS: BP 111/58
[2020-08-08] MEDS: CEFEPIME 1GM/NS 0.9% 50 ML 50 ML IV SCH ×2 (05:24→18:28)
[2020-08-08] MEDS: LINEZOLID 600 MG/D5W 300ML 300 ML IV SCH ×2 (05:56→19:54)
[2020-08-08 07:06] LABS: BASOPHILS # (AUTO) 0.1 (0.0-0.1); BASOPHILS % 0.4 % (0.0-1.0); EOSINOPHILS # (AUTO) 0.1 (0.0-0.4); EOSINOPHILS % 0.8 % (0.0-6.0); HEMATOCRIT 26.1 % (38.2-49.6); LYMPHOCYTES # (AUTO) 1.3 (1.0-3.2); LYMPHOCYTES % 9.8 % (18.0-39.1); MEAN CORPUSCULAR HEMOGLOBIN 25.6 pg (28-32); MEAN CORPUSCULAR HGB CONC 30.7 g/dL (31-35); MEAN CORPUSCULAR VOLUME 83.7 fL (81-99); MONOCYTES % 7.6 % (4.4-11.3); NEUTROPHILS # (AUTO) 10.8 (2.1-6.9); PLATELET COUNT 277 x10e3/uL (140-360); RED BLOOD COUNT 3.12 x10e6/uL (4.3-5.7); RED CELL DISTRIBUTION WIDTH 13.7 % (11.7-14.4)
[2020-08-08] MEDS: INSULIN REGULAR, HUMAN 100 UNIT/1 ML 3ML VIAL SQ SCH ×4 (07:30→21:00)
[2020-08-08 07:32] LABS: ANION GAP 13.2 mmol/L (8-16); CALCIUM 7.5 mg/dL (8.4-10.2); CREATININE, SERUM 2.97 mg/dL (0.72-1.25); POTASSIUM 4.2 mmol/L (3.5-5.1)
--- NOTE | 2020-08-08 08:55 | Consultation ---
DATE OF CONSULTATION: 08/08/2020 SUBJECTIVE: The patient is at bedside. No distress. OBJECTIVE: VITAL SIGNS: Afebrile. Vital signs stable. EXTREMITIES: Gangrenous changes noted to the 1st and 2nd toe of right foot with pedal pulses diminished. Cellulitis of the midfoot area. LABORATORY DATA: Labs noted. White blood cell count of 12.5. ASSESSMENT: Gangrene, peripheral arterial disease, cellulitis with diabetic neuropathy. PLAN: The patient will be undergoing mapping per Dr. Sanchez hopefully today. The patient will be tentatively scheduled for any surgical intervention on . Proposed surgical procedure will be discussed with the patient following the Dr. Sanchez's evaluation. SERGIO Houston/VIKL /[id number]
[2020-08-08 09:02] VITALS: BP 119/59
[2020-08-08] MEDS: TAMSULOSIN HCL 0.4 MG CAP PO SCH (09:15)
[2020-08-08] MEDS: FAMOTIDINE 20 MG TAB PO SCH ×2 (09:15→18:54)
[2020-08-08] MEDS: INSULIN GLARGINE 100 UNITS/ML VIAL SQ SCH (09:15)
[2020-08-08] MEDS: ASPIRIN 81 MG ENTERIC COATED PO SCH (09:15)
[2020-08-08] MEDS: SODIUM BICARBONATE 650 MG TAB PO SCH ×2 (10:45→18:54)
[2020-08-08] MEDS: CARVEDILOL 3.125 MG TAB PO SCH ×2 (10:45→21:52)
[2020-08-08 11:56] VITALS: BP 143/57
[2020-08-08] MEDS: AMLODIPINE BESYLATE 10 MG TAB PO SCH (12:34)
[2020-08-08 15:52] VITALS: BP 138/58
--- NOTE | 2020-08-08 19:18 | Progress Note ---
DATE: CONSULTING PHYSICIANS: 1. Dr. Isaura Arredondo with Infectious Disease. 2. Dr. Nicolas Sanchez with Cardiovascular Surgery. 3. Dr. Luiz Buitrago with Cardiology. 4. Dr. Tanja Abad with Nephrology. 5. Dr. Gaurang Mendoza with Podiatry. SUBJECTIVE: The patient is lying supine in bed. REVIEW OF SYSTEMS: A 14-point review of systems was completed and the patient denies any chills, pain, headache, dizziness, shortness of breath, cough, phlegm, chest pain, palpitations, nausea, vomiting, diarrhea, or constipation. His last bowel movement was this morning. OBJECTIVE: VITAL SIGNS: Temperature 97.7, heart rate 69, blood pressure 143/57, respirations 20, oxygen saturation 95%. GENERAL: Supine, head of bed elevated. No acute distress. LUNGS: Clear to auscultation. Respiratory pattern even and unlabored. No supplemental oxygen. HEENT: EOMI. Moist mucous membranes. NECK: Supple. No lymphadenopathy, thyromegaly, or JVD noted. CARDIOVASCULAR: Regular rate and rhythm. No murmur. Normal saline infusing at 100 mL an hour. ABDOMEN: Bowel sounds positive. Soft, nontender. Obese. EXTREMITIES: Without pitting edema. Left BKA. Right lower extremity with Kerlix dressing around the foot. No drainage noted. NEUROLOGICAL: GCS 15. Nonfocal. LABORATORY DATA: WBC 13.36, hemoglobin 8.0, hematocrit 26.1, platelets 277. Sodium 137, potassium 4.2, chloride 107, CO2 of 21, BUN 46, creatinine 2.97, estimated GFR 21, glucose 109, calcium 7.5. Fingerstick blood glucose levels 156, 167, 142. Final urine culture and sensitivity collected 07/31 showed Escherichia coli. IMAGING/OTHER: On 08/04, final echocardiogram showed low normal ventricular systolic function with an EF of between 15 to 55%, pseudo normal LV filling pattern consistent with elevated LA pressure. He had a left heart catheterization with pulmonary angiography, abdominal aortogram with bilateral lower extremity runoff on 08/[address] Buitrago. Please see operative report for details. Per documentation, he has two vessel coronary artery disease with a moderate LAD lesion and severe left circumflex artery lesion, severe right peripheral vascular disease. On 08/08, lower extremity vein mapping was done. No DVT in either extremity. Please see preliminary report for details. ASSESSMENT AND PLAN: 1. Right foot dry gangrene/peripheral arterial disease with cellulitis/osteomyelitis, severe peripheral vascular disease, history of left below-knee amputation. Bilateral lower extremity vein mapping was completed. Lower extremity venous bypass is planned possibly tomorrow. Tentative surgery on the right lower extremity by Podiatry is planned on , 08/10. Continue Zyvox and cefepime IV antibiotics. 2. Coronary artery disease. No complaints of chest pain. 3. Right carotid disease. 4. Acute kidney injury on chronic kidney disease stage 4 to 5. BUN 46, creatinine 2.97, estimated GFR 21. Continue IV fluids per Nephrology and monitor renal labs. 5. Type 2 diabetes mellitus with chronic kidney disease stage 4 to 5. Fingerstick blood glucose levels stable. Continue low-dose regular insulin sliding scale and Lantus insulin. Blood glucose has been below 200. 6. Hypertension with coronary artery disease, peripheral arterial disease, chronic kidney disease 4-5. Cardiology following. Continue same. Monitor BP. 7. Escherichia coli urinary tract infection, present on admission. Continue antibiotics. 8. Prophylaxis. Pepcid. Inpatient billing code [id number]. Time spent 35 minutes. Dictated by Levi Adams NP MD OSMLE BrewerP/ESME /[id number]
[2020-08-08 21:30] VITALS: BP 124/54
[2020-08-08] MEDS: ATORVASTATIN 40 MG TAB PO SCH (21:52)
--- NOTE | 2020-08-08 22:00 | NUR ---
PATIENT'S IV ACCIDENTLY DISLODGED, NEW IV STARTED ON RIGHT HAND 20 GAUGE. SITE IS PATENT AND INTACT.
--- NOTE | 2020-08-08 23:41 | NUR ---
this is infectious disease progress note patient seen and examined chart reviewed the patient with no new complaints and review of systems present time are all negative events noted chart reviewed. Discussed with medical team. patient is comfortable with no complaints REVIEW OF SYSTEMS:all is negative A 14-point review of systems was completed and the patient denies any chills, pain, headache, dizziness, shortness of breath, cough, phlegm, chest pain, palpitations, nausea, vomiting, diarrhea, or constipation. His last bowel movement was this morning. OBJECTIVE: patient about the same is alert oriented does not seem to be in acute distressVITAL SIGNS: Temperature 97.7, heart rate 69, blood pressure 143/57, respirations 20, oxygen saturation 95%. GENERAL: Supine, head of bed elevated. No acute distress. LUNGS: Clear to auscultation. Respiratory pattern even and unlabored. No supplemental oxygen. HEENT: EOMI. Moist mucous membranes. NECK: Supple. No lymphadenopathy, thyromegaly, or JVD noted. CARDIOVASCULAR: Regular rate and rhythm. No murmur. Normal saline infusing at 100 mL an hour. ABDOMEN: Bowel sounds positive. Soft, nontender. Obese. EXTREMITIES: Without pitting edema. Left BKA. Right lower extremity with Kerlix dressing around the foot. No drainage noted. NEUROLOGICAL: GCS 15. Nonfocal. LABORATORY DATA: WBC 13.36, hemoglobin 8.0, hematocrit 26.1, platelets 277. Sodium 137, potassium 4.2, chloride 107, CO2 of 21, BUN 46, creatinine 2.97, estimated GFR 21, glucose 109, calcium 7.5. Fingerstick blood glucose levels 156, 167, 142. Final urine culture and sensitivity collected 07/31 showed Escherichia coli. IMAGING/OTHER: On 08/04, final echocardiogram showed low normal ventricular systolic function with an EF of between 15 to 55%, pseudo normal LV filling pattern consistent with elevated LA pressure. He had a left heart catheterization with pulmonary angiography, abdominal aortogram with bilateral lower extremity runoff on 08/[address] Buitrago. Please see operative report for details. Per documentation, he has two vessel coronary artery disease with a moderate LAD lesion and severe left circumflex artery lesion, severe right peripheral vascular disease. On 08/08, lower extremity vein mapping was done. No DVT in either extremity. Please see preliminary report for details. ASSESSMENT AND PLAN: 1. 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 . Continue Zyvox and cefepime IV antibiotics. 2. Coronary artery disease. No complaints of chest pain. 3. Right carotid disease. 4. Acute kidney injury on chronic kidney disease stage 4 to 5. BUN 46, creatinine 2.97, estimated GFR 21. Continue IV fluids per Nephrology and monitor renal labs. 5. Type 2 diabetes mellitus with chronic kidney disease stage 4 to 5. Fingerstick blood glucose levels stable. Continue low-dose regular insulin sliding scale and Lantus insulin. Blood glucose has been below 200. 6. Hypertension with coronary artery disease, peripheral arterial disease, chronic kidney disease 4-5. Cardiology following. Continue same. Monitor BP. 7. Escherichia coli urinary tract infection, present on admission. Continue antibiotics.
[2020-08-09] VITALS (8 sets, daily range): BP systolic 103–118; BP diastolic 59–80
--- NOTE | 2020-08-09 02:10 | Progress Note ---
DATE: 08/08/2020 Renal Progress Note SUBJECTIVE: The patient doing well today with no complaints. He was alert, awake, and oriented on examination. PHYSICAL EXAMINATION: VITAL SIGNS: He is afebrile. Normotensive. Respiratory rate is good. GENERAL: In no acute distress. Alert and oriented x3. Cooperative on examination. PULMONARY: Clear to auscultation bilaterally. No wheezing, rales, or rhonchi. No crackles appreciated. CARDIOVASCULAR: Positive S1 and S2. No murmurs, rubs, or gallops appreciated. ABDOMEN: Soft, nondistended, nontender to palpation. Bowel sounds present. MUSCULOSKELETAL: Strength is 5/5 throughout. LABORATORY DATA: Show CBC; white count 13, hemoglobin 8, hematocrit 26, platelets of 277. Chemistry; sodium 137, potassium is 4.2, chloride 107, bicarb 29, anion gap of 13, BUN is 46 and creatinine is 2.97. GFR is 21. MICROBIOLOGY: Noted. IMAGING STUDIES: Nothing new. IMPRESSION: 1. Acute kidney injury on chronic kidney disease, stage 4-5. 2. Left foot diabetic foot ulcer. 3. Type 2 diabetes. 4. Hypertension. 5. Anemia of chronic disease. 6. Secondary hyperparathyroidism. PLAN: At this time, continue with sodium bicarbonate tabs. Low-dose IV fluids. A.m. labs. Intact PTH pending. The etiology is diabetic nephropathy nature as well as hypertension. We will continue to monitor very closely. MD CARMEN Simpson/ESME /[id number]
[2020-08-09] MEDS: CEFEPIME 1GM/NS 0.9% 50 ML 50 ML IV SCH (04:08)
[2020-08-09] MEDS: SODIUM CHLORIDE 0.9% 1000ML 1,000 ML IV SCH (04:08)
[2020-08-09] MEDS: LINEZOLID 600 MG/D5W 300ML 300 ML IV SCH ×2 (05:30→18:10)
[2020-08-09] MEDS: INSULIN REGULAR, HUMAN 100 UNIT/1 ML 3ML VIAL SQ SCH ×4 (07:30→20:52)
[2020-08-09 08:27] LABS: BASOPHILS % 0.3 % (0.0-1.0); EOSINOPHILS # (AUTO) 0.1 (0.0-0.4); HEMATOCRIT 25.6 % (38.2-49.6); HEMOGLOBIN 7.8 g/dL (14.0-18.0); LYMPHOCYTES # (AUTO) 1.2 (1.0-3.2); LYMPHOCYTES % 8.9 % (18.0-39.1); MEAN CORPUSCULAR HEMOGLOBIN 25.7 pg (28-32); MEAN CORPUSCULAR HGB CONC 30.5 g/dL (31-35); MEAN CORPUSCULAR VOLUME 84.2 fL (81-99); MONOCYTES # (AUTO) 0.7 (0.2-0.8); MONOCYTES % 5.2 % (4.4-11.3); NEUTROPHILS # (AUTO) 11.2 (2.1-6.9); NEUTROPHILS % 84.1 % (38.7-80.0); PLATELET COUNT 235 x10e3/uL (140-360); RED BLOOD COUNT 3.04 x10e6/uL (4.3-5.7); RED CELL DISTRIBUTION WIDTH 13.8 % (11.7-14.4)
[2020-08-09 08:48] LABS: ANION GAP 14.4 mmol/L (8-16); CALCIUM 7.5 mg/dL (8.4-10.2); CREATININE, SERUM 3.22 mg/dL (0.72-1.25); POTASSIUM 3.4 mmol/L (3.5-5.1)
[2020-08-09] MEDS ORDERED: SODIUM CHLORIDE 0.9% 250ML 250 ML IV SCH (09:00)
--- NOTE | 2020-08-09 09:21 | Progress Note ---
DATE: 08/09/2020 SUBJECTIVE: The patient was seen at bedside, no distress, having some discomfort to the right lower extremity. He is denying any history of fever, chills, nausea, or vomiting. OBJECTIVE: VITAL SIGNS: Afebrile, pulse rate 67, respiration 22, blood pressure 116/61, O2 saturation 99%. EXTREMITIES: There is foul smell noted to the forefoot aspect of the right foot, gangrenous changes, getting a little bit worse with forefoot cellulitis. Has decreased dorsiflexion with the knee extended, opposed to knee flex to the right lower extremity secondary to equines deformity. Pedal pulses diminished. LABORATORY DATA: Labs show white blood cell count of 13.3. ASSESSMENT: Peripheral arterial disease with gangrene, cellulitis, abscess, and equinus deformity. PLAN: The patient will be taken for surgical intervention tomorrow. Surgery will consist of I and D of abscess, transmetatarsal amputation of the rotational flap closure with Achilles tendon lengthening. The proposed surgery was reviewed with the patient. The patient was given time to ask questions. No guarantees were given. The patient will be scheduled for tomorrow morning and he will be kept n.p.o. after midnight tonight. 2 units of packed red blood cells will be ordered secondary to the low hemoglobin and CBC with diff will be reordered after the blood is given. SERGIO Houston/VIKL /[id number]
--- NOTE | 2020-08-09 09:21 | Progress Note ---
DATE: REASON FOR PROGRESS NOTE: Coronary artery disease, dry gangrene of the right lower extremity, peripheral arterial disease; requested by Dr. Isaura Arredondo. SUBJECTIVE: The patient is clinically stable. Status post cardiac catheterization with peripheral angiogram. Gangrene unchanged. Catheterization and venous studies reviewed. REVIEW OF SYSTEMS: No chest pain, shortness of breath, neurologic changes, or fever. Right lower extremity, not painful. Dry gangrene. This is stable. PHYSICAL EXAMINATION: VITAL SIGNS: Blood pressure 140/80, pulse 80 and regular, respirations 16 and unlabored. NECK: Supple and nontender. No JVD. CARDIAC: Regular rate and rhythm. Normal S1 and S2. No S3 or S4. LUNGS: Clear to auscultation and percussion bilaterally. ABDOMEN: Globoid. Benign. Good bowel sounds. EXTREMITIES: Cellulitis surrounding the distal dry gangrene of the foot, resolving. Minimal edema. IMAGING: Cardiac catheterization is reviewed. Multiple high-grade lesions of the superficial femoral artery. There is also significant coronary artery disease. Venous mapping shows vein is adequate for bypass surgery. Discussed with Dr. Buitrago. Possible CABG prior to peripheral vascular surgery. We will discuss with other attendings. IMPRESSION: Severe peripheral vascular disease and coronary artery disease. MD GARCIA Gallagher/MODL /[id number]
[2020-08-09] MEDS: TAMSULOSIN HCL 0.4 MG CAP PO SCH (09:32)
[2020-08-09] MEDS: CARVEDILOL 3.125 MG TAB PO SCH ×2 (09:32→21:00)
[2020-08-09] MEDS: ASPIRIN 81 MG ENTERIC COATED PO SCH (09:32)
[2020-08-09] MEDS: FAMOTIDINE 20 MG TAB PO SCH ×2 (09:32→17:21)
[2020-08-09] MEDS: AMLODIPINE BESYLATE 10 MG TAB PO SCH (09:33)
[2020-08-09] MEDS: INSULIN GLARGINE 100 UNITS/ML VIAL SQ SCH (09:33)
[2020-08-09] MEDS: SODIUM BICARBONATE 650 MG TAB PO SCH ×2 (09:33→17:22)
--- NOTE | 2020-08-09 10:09 | Diagnostic Imaging Report ---
EXAMINATION: FOOT RIGHT COMPLETE INDICATION: Gangrene, abscess COMPARISON: None FINDINGS: No acute fracture or dislocation. Diffuse osteopenia. Focal soft tissue swelling of the great toe and the plantar foot soft tissues with the exception of the soft tissues overlying the heel which appear thinned. Moderate scattered multifocal degenerative changes. Atherosclerotic arterial calcifications. Status post anterior tibial artery stenting. IMPRESSION: No acute osseous injury. No specific radiographic evidence of osteomyelitis. Soft tissue swelling of the great toe and plantar foot and soft tissue thinning at the heel. Atherosclerotic arterial calcifications status post anterior tibial artery stenting. Signed by: Carmelita Cardoza MD on 08/09/2020 10:06 AM
[2020-08-09 11:10] LABS: INR 1.15; PROTHROMBIN TIME 15.3 seconds (11.9-14.5)
[2020-08-09 11:11] LABS: PARTIAL THROMBOPLASTIN TIME 35.1 seconds (23.8-35.5)
[2020-08-09] MEDS ORDERED: SODIUM CHLORIDE 0.9% 250ML 250 ML ONE (12:53)
--- NOTE | 2020-08-09 17:54 | NUR ---
INFECTIOUS DISEASE PROGRESS NOTE DR. VICKEY ARREDONDO REVIEW OF SYSTEMS: A 14-point review of systems was completed and the patient denies any chills, pain, headache, dizziness, shortness of breath, cough, phlegm, chest pain, palpitations, nausea, vomiting, diarrhea, or constipation. OBJECTIVE: vs reviewed GENERAL: Supine, head of bed elevated. No acute distress. LUNGS: Clear to auscultation. Respiratory pattern even and unlabored. No supplemental oxygen. HEENT: EOMI. Moist mucous membranes. NECK: Supple. No lymphadenopathy, thyromegaly, or JVD noted. CARDIOVASCULAR: Regular rate and rhythm. No murmur. Normal saline infusing at 100 mL an hour. ABDOMEN: Bowel sounds positive. Soft, nontender. Obese. EXTREMITIES: Without pitting edema. Left BKA. Right lower extremity with Kerlix dressing around the foot. No drainage noted. NEUROLOGICAL: GCS 15. Nonfocal. LABORATORY DATA: reviewed IMAGING/OTHER: On 08/04, final echocardiogram showed low normal ventricular systolic function with an EF of between 15 to 55%, pseudo normal LV filling pattern consistent with elevated LA pressure. He had a left heart catheterization with pulmonary angiography, abdominal aortogram with bilateral lower extremity runoff on 08/[address] Buitrago. Please see operative report for details. Per documentation, he has two vessel coronary artery disease with a moderate LAD lesion and severe left circumflex artery lesion, severe right peripheral vascular disease. On 08/08, lower extremity vein mapping was done. No DVT in either extremity. Please see preliminary report for details. ASSESSMENT AND PLAN: 1. Right foot dry gangrene -severe peripheral vascular disease, history of left below-knee amputation. -Continue Zyvox and cefepime IV antibiotics. 2. Coronary artery disease. No complaints of chest pain. 3. Right carotid disease. 4. Acute kidney injury on chronic kidney disease stage 4 to 5. 5. 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 Hypertension with coronary artery disease, 7. Escherichia coli urinary tract infection, present on admission. Continue antibiotics. Trudy Spaulding MSN, [employer], [facility]- Vickey Arredondo M.D.
[2020-08-09 19:16] LABS: BASOPHILS % 0.3 % (0.0-1.0); EOSINOPHILS # (AUTO) 0.1 (0.0-0.4); EOSINOPHILS % 0.8 % (0.0-6.0); HEMATOCRIT 27.9 % (38.2-49.6); HEMOGLOBIN 8.6 g/dL (14.0-18.0); LYMPHOCYTES # (AUTO) 1.2 (1.0-3.2); LYMPHOCYTES % 8.2 % (18.0-39.1); MEAN CORPUSCULAR HEMOGLOBIN 25.9 pg (28-32); MEAN CORPUSCULAR HGB CONC 30.8 g/dL (31-35); MONOCYTES # (AUTO) 0.7 (0.2-0.8); MONOCYTES % 4.8 % (4.4-11.3); NEUTROPHILS # (AUTO) 12.3 (2.1-6.9); NEUTROPHILS % 85.4 % (38.7-80.0); PLATELET COUNT 217 x10e3/uL (140-360); RED BLOOD COUNT 3.32 x10e6/uL (4.3-5.7); RED CELL DISTRIBUTION WIDTH 14.2 % (11.7-14.4)
--- NOTE | 2020-08-09 19:43 | NUR ---
SPOKE TO MD HOGEU. NOTIFIED HGB 8.6. NOTIFIED PATIENT REQUEST TO SPEAK TO FAMILY MEMBER. MD WILL SPEAK TO FAMILY MEMBER.
--- NOTE | 2020-08-09 20:19 | NUR ---
BLADDER SCAN 114 ML.
[2020-08-09] MEDS: ATORVASTATIN 40 MG TAB PO SCH (20:54)
--- NOTE | 2020-08-09 21:30 | NUR ---
REFUSES REPOSITIONING AT THIS TIME
--- NOTE | 2020-08-09 21:41 | Progress Note ---
DATE: 08/09/2020 CONSULTING PHYSICIANS: 1. Dr. Isaura Arredondo with Infectious Disease. 2. Dr. Nicolas Sanchez with Cardiothoracic Surgery. 3. Dr. Luiz Buitrago with Cardiology. 4. Dr. Tanja Abad with Nephrology. 5. Dr. Gaurang Mendoza with Podiatry. REVIEW OF SYSTEMS: A 14-point review of systems completed and the patient denies any chills, pain, headache, dizziness, shortness of breath, cough, phlegm, chest pain, palpitations, nausea, vomiting, diarrhea, or constipation. States his last bowel movement was this morning. OBJECTIVE: VITAL SIGNS: Temperature 98.0, pulse 62, blood pressure 110/63, respirations 19, and oxygen saturation 98%. GENERAL: Supine with the head of bed elevated on his left side. No acute distress. LUNGS: Clear to auscultation. Respiratory pattern even and unlabored. No supplemental oxygen. HEENT: EOMI. Moist mucous membranes. NECK: Supple. No lymphadenopathy, thyromegaly, or JVD. CARDIOVASCULAR: Regular rate and rhythm. No murmur. Normal saline infusing at 50 mL an hour into a peripheral IV. ABDOMEN: Bowel sounds positive. Soft, nontender, and obese. EXTREMITIES: With no pitting edema. Left BKA. Right lower extremity with Kerlix dressing around the foot. No drainage noted on dressing. NEUROLOGICAL: GCS 15. Nonfocal. LABORATORY DATA: WBCs 13.37, hemoglobin 7.8, hematocrit 25.6, and platelets 235. PT 15.3, INR 1.15, and PTT 35.1. Sodium 137, potassium 3.4, chloride 107, CO2 19, anion gap 14.4, BUN 50, creatinine 3.22, estimated GFR 19, and glucose 86. Fingerstick blood glucose levels 95 and 90 mg/dL. Calcium 7.5. IMAGING: Right foot complete x-ray done today, shows no acute osseous injury. No specific radiographic evidence of osteomyelitis. Soft tissue swelling of the great toe and plantar foot and soft tissue thinning at the heel. Atherosclerotic arterial calcifications, status post anterior tibial artery stenting. ASSESSMENT AND PLAN: 1. Right foot dry gangrene/peripheral arterial disease with cellulitis/osteomyelitis, severe peripheral vascular disease, history of left [id number] amputation. Continue Zyvox and cefepime. Bilateral lower extremity vein mapping was completed. Lower extremity femoral-popliteal bypass is planned. Tentative transmetatarsal amputation on the right lower extremity by Podiatry is planned for tomorrow, , 08/10. 2. Coronary artery disease. Denies chest pain. Case was discussed with Dr. Sanchez. He states he has discussed the case with the patient, the family, and the Cardiology team and the current plan is for two-vessel coronary artery bypass graft prior to the femoral-popliteal bypass if the patient and family are agreeable. 3. Right carotid disease. 4. Acute kidney injury on chronic kidney disease, stage 4 to 5. BUN 50, creatinine 3.22, and estimated GFR 19. Metabolic acidosis noted with serum CO2 19. Nephrology following. Continue gentle hydration per Nephrology and monitor renal labs. 5. Type 2 diabetes mellitus with chronic kidney disease, stage 4 to 5. Fingerstick blood glucose levels stable. Continue low-dose regular insulin sliding scale and Lantus insulin. 6. Hypertension with coronary artery disease, peripheral arterial disease, and chronic kidney disease 4 to 5. Cardiology following. Continue same. Monitor BP. 7. Escherichia coli acute urinary tract infection, present on arrival. Continue IV antibiotics. 8. Acute hypokalemia. Potassium level 3.4. Reassess level in the morning. 9. Anemia of chronic disease. One unit of blood ordered by Podiatry today, as the patient expecting to have surgery in the morning. N.p.o. after midnight. Incidentally, unit of blood may improve potassium as well as hemoglobin. Reassess H and H in the morning. 10. Prophylaxis. Pepcid. Inpatient, billing code [id number], time spent 45 minutes. Dictated by Levi Adams NP MD OSMEL BrewerP/MODL /[id number]
[2020-08-10] VITALS: BP 108/46
[2020-08-10] MEDS: SODIUM CHLORIDE 0.9% 1000ML 1,000 ML IV SCH ×4 (01:45→22:53)
[2020-08-10 04:00] VITALS: BP 102/48
--- NOTE | 2020-08-10 04:15 | NUR ---
BLADDER SCAN 84ML
[2020-08-10] MEDS: CEFEPIME 1GM/NS 0.9% 50 ML 50 ML IV SCH (04:16)
--- NOTE | 2020-08-10 04:17 | NUR ---
REFUSES REPOSITIONING/TURN AT THIS TIME. EDUCATION PROVIDED REGARDING NEED TO TURN. VERBALIZES UNDERSTANDING.
[2020-08-10 04:49] LABS: BASOPHILS # (AUTO) 0.1 (0.0-0.1); BASOPHILS % 0.4 % (0.0-1.0); EOSINOPHILS # (AUTO) 0.2 (0.0-0.4); EOSINOPHILS % 1.6 % (0.0-6.0); HEMATOCRIT 26.8 % (38.2-49.6); HEMOGLOBIN 8.1 g/dL (14.0-18.0); LYMPHOCYTES # (AUTO) 1.3 (1.0-3.2); LYMPHOCYTES % 9.7 % (18.0-39.1); MEAN CORPUSCULAR HEMOGLOBIN 25.2 pg (28-32); MEAN CORPUSCULAR HGB CONC 30.2 g/dL (31-35); MEAN CORPUSCULAR VOLUME 83.2 fL (81-99); MONOCYTES # (AUTO) 0.8 (0.2-0.8); MONOCYTES % 5.9 % (4.4-11.3); NEUTROPHILS # (AUTO) 11.1 (2.1-6.9); NEUTROPHILS % 81.8 % (38.7-80.0); PLATELET COUNT 210 x10e3/uL (140-360); RED BLOOD COUNT 3.22 x10e6/uL (4.3-5.7); RED CELL DISTRIBUTION WIDTH 14.1 % (11.7-14.4)
[2020-08-10] MEDS: LINEZOLID 600 MG/D5W 300ML 300 ML IV SCH ×2 (05:06→17:07)
[2020-08-10 05:10] LABS: ALBUMIN 2.7 g/dL (3.5-5.0); ALBUMIN/GLOBULIN RATIO 0.9 (0.8-2.0); ANION GAP 15.3 mmol/L (8-16); CALCIUM 7.3 mg/dL (8.4-10.2); CREATININE, SERUM 3.75 mg/dL (0.72-1.25); POTASSIUM 3.3 mmol/L (3.5-5.1)
--- NOTE | 2020-08-10 05:25 | NUR ---
RECEIVED CRITICAL GLUCOSE 57 FOR LAB. DEXTROSE GIVEN PER ORDER. PATIENT ASYMPTOMATIC. ALERT AND ORIENTED. WILL CHECK BLOOD SUGAR IN 15 MINS.
--- NOTE | 2020-08-10 05:56 | NUR ---
RECHECKED FSBS. 157. ALERT AND ORIENTED. NO ADVERSE SIGNS.
[2020-08-10] MEDS ORDERED: BETAMETHASONE DISODIUM PHOS 6 MG/ML VIAL ONE (06:43)
[2020-08-10] MEDS ORDERED: MUPIROCIN 2% OINT 22 GM TUBE ONE (06:43)
[2020-08-10] MEDS ORDERED: BUPIVACAINE HCL 0.5% INJ 30 ML VIAL INJ ONE (06:43)
[2020-08-10] MEDS ORDERED: LIDOCAINE HCL 1% LOCAL INJ 20 ML VIAL ONE (06:43)
--- NOTE | 2020-08-10 06:52 | NUR ---
NOTIFIED STAFF NURSE HGB 8.1. STAFF NURSE NOTIFY OR HGB 8.1. PATIENT LEAVES UNIT TO PROCEDURE BY BED.
--- NOTE | 2020-08-10 07:16 | NUR ---
REPORT GIVEN TO DAYSHIFT NURSE. PATIENT OFF UNIT TO OR.
[2020-08-10] MEDS: INSULIN REGULAR, HUMAN 100 UNIT/1 ML 3ML VIAL SQ SCH ×4 (07:30→19:57)
[2020-08-10] MEDS ORDERED: VANCOMYCIN HCL 1 GM VIAL ONE (08:01)
--- NOTE | 2020-08-10 09:21 | Diagnostic Imaging Report ---
Radiographs of the right foot - 3 views HISTORY: Pain. Surgery COMPARISON: 08/09/2020 FINDINGS: Bones: No acute displaced fracture. Diffuse osteopenia. Patient status post amputation at the level of the mid first through fifth metatarsals with associated postsurgical change. Osseous alignment is within normal limits. Joints: Scattered degenerative change. No osseous erosion. Soft tissues: Scattered vascular calcification IMPRESSION: Patient status post amputation at the level of the mid first through fifth metatarsals with associated postsurgical change. Signed by: Dr. Reji Joseph M.D. on 08/10/2020 9:17 AM
--- NOTE | 2020-08-10 09:44 | Progress Note ---
DATE: 08/09/2020 Nephrology Progress Note SUBJECTIVE: This is a late entry note for patient seen on 08/09/2020. The patient was evaluated approximately 1:45 p.m. During that time, the patient was doing well with no complaints. Reviewed the case with the nursing staff as well. PHYSICAL EXAMINATION: VITAL SIGNS: He is afebrile, normotensive. Respiratory rate is good. GENERAL: Not in acute distress. Alert and oriented x3. Cooperative on examination. HEENT. Head; normocephalic, atraumatic. Eyes; pupils are equal, round, and reactive bilaterally. PULMONARY: Clear to auscultation bilaterally. No wheezing, rales, or rhonchi. No crackles appreciated. CARDIOVASCULAR: Positive S1, S2. No murmurs, rubs, or gallops. ABDOMEN: Soft, nondistended, nontender to palpation. Bowel sounds present. MUSCULOSKELETAL: Strength is 5/5 throughout. LABORATORY DATA: CBC was stable. Chemistry showed creatinine elevated at 3.22. The rest of the electrolytes were stable. IMPRESSION: 1. Acute kidney injury on chronic kidney disease, stage 4-5. 2. Left diabetic foot ulcer. 3. Type 2 diabetes. 4. Hypertension. 5. Anemia of chronic disease. 6. Secondary hyperparathyroidism. PLAN: At this time, renal function has gotten worse. Continue with IV fluids. I will go ahead and get a urine eosinophils and CBC with serum eosinophils. He did have some relatively low blood pressures, which could be contributing. I will add some oral midodrine to raise up his pressure which could be playing a role in his underlying rise in creatinine. Otherwise, no indication for renal replacement therapy at this time. MD CARMEN Simpson/MODMartha /[id number]
[2020-08-10] MEDS ORDERED: MIDODRINE HCL 5 MG TABLET PO ONE (10:00)
[2020-08-10] MEDS ORDERED: POTASSIUM CHLORIDE 20 MEQ TAB CR PO ONE (10:00)
[2020-08-10] MEDS: TAMSULOSIN HCL 0.4 MG CAP PO SCH (11:00)
[2020-08-10] MEDS: ASPIRIN 81 MG ENTERIC COATED PO SCH (11:00)
[2020-08-10] MEDS: FAMOTIDINE 20 MG TAB PO SCH ×2 (11:00→16:43)
[2020-08-10] MEDS: SODIUM BICARBONATE 650 MG TAB PO SCH ×2 (11:00→16:43)
--- NOTE | 2020-08-10 11:35 | Operative Report ---
DATE OF PROCEDURE: 08/10/2020 SURGEON: Gaurang Mendoza DPM PREOPERATIVE DIAGNOSES: 1. Abscess, right foot. 2. Equinus deformity, right foot. 3. Gangrene, right foot. 4. Osteomyelitis, right foot. POSTOPERATIVE DIAGNOSES: Confirmed. OPERATIVE PROCEDURES: 1. I and D of abscess, deep, right foot. 2. Transmetatarsal amputation, right foot. 3. Rotational flap closure, right foot. 4. Achilles tendon lengthening, right foot. 5. Intraoperative use of fluoroscopy. 6. Trigger point shot of cortisone. 7. Application of posterior splint. ANESTHESIA: General. HEMOSTASIS: Pneumatic thigh tourniquet at 350 mmHg. PROCEDURE IN DETAIL: The patient was taken into the operating room and placed on the operating table in supine position. Following induction of general anesthesia by the anesthesiologist, Webril wraps were placed on the patient's right thigh, followed by application of right thigh tourniquet. The right lower extremity was then prepped and draped in the usual aseptic manner and following procedures were then performed. Procedure #1: I and D, right foot. Attention was directed to the dorsal aspect of right foot, where a curvilinear incision was performed overlying the metatarsophalangeal joint. Approximately, 2 to 3 mL of purulent drainage was drained. Abscess was I and D down to bone. Devitalized tissue was sharply excised until good viable bleeding tissue was achieved. Necrotic tissue was removed via sharp and blunt dissection, and deep cultures were taken for aerobic and anaerobic growth. Procedure #2: Transmetatarsal amputation, right foot. Attention was directed to the dorsal aspect of the right foot, where a curvilinear incision was performed. The incision was deepened down to the metatarsal shafts 1 through 5 maintaining metatarsal parabola utilizing an oscillating saw. The forefoot was then disarticulated and sent for pathological analysis. All areas were then copiously flushed with sterile antibiotic solution and suction. Secondary to the tightness of the skin, procedure #3 was performed, rotational flap closure. The incisions were then deepened both medial laterally and medial plantarly to create a plantar flap to allow for proper closure. With minimal skin tension, rotational flap closure was then obtained. The plantar flap was then disarticulated dorsally after the thigh tourniquet was released and all pumpers were ligated or bovied or tied as necessary. The flap was then dorsally displaced and utilizing 3-0 Vicryl and 3-0 nylon, the flap was then reattached to the dorsum with minimal skin tension. Procedure #4: Achilles tendon lengthening, right foot. Attention was then directed to the posterior aspect of the right leg, where 3 stab incisions were performed, 2 cm from the incision Achilles tendon and 2 cm apart. The most distal and most proximal stab incision was entered midline through the tendon and then exited medially. The middle stab incision was entered midline through the tendon and exited laterally. The foot was then dorsiflexed and the Achilles tendon was felt to lengthen. Procedure #5: Trigger point shot of cortisone was given to the 1st and 4th interspaces of the right foot. Procedure #6: Intraoperative use of fluoroscopy was then used to make sure proper alignment and fixation was achieved and closure was then obtained utilizing 3-0 Vicryl and 3-0 nylon for subcutaneous tissue and muscle and skin respectively. Procedure #7: Application of posterior splint. A properly placed posterior splint was then applied keeping the foot at 90 degrees with respect to the leg to try for any type of postop complications. The patient was then transferred from the OR to recovery room with vital signs stable and neurovascular status intact. No intraoperative complications were encountered. Blood loss from the surgery was minimal. The patient to remain nonweightbearing, remain in the hospital for IV antibiotics. No guarantees or warrantees will be given. Granddaughter spoke to yesterday evening and instructed this will be a salvage-type of procedure secondary to his poor circulatory status, diabetes, and cellulitis. He may end up needing a [id number] amputation. SERGIO Houston/ESME /[id number]
[2020-08-10 12:00] VITALS: BP 116/64
[2020-08-10] MEDS: INSULIN GLARGINE 100 UNITS/ML VIAL SQ SCH (12:00)
[2020-08-10] MEDS ORDERED: FENTANYL CITRATE/PF 100MCG/2 ML INJ ONE (12:42)
[2020-08-10] MEDS ORDERED: PROPOFOL IV EMULSION 10 MG/ML 20 ML VIAL ONE (12:44)
[2020-08-10] MEDS ORDERED: LIDOCAINE HCL 2% LOCAL INJ 5 ML SDV VIAL INJ ONE (12:44)
[2020-08-10] MEDS ORDERED: SEVOFLURANE INHAL SOLN 250 ML PEN BTL ONE (12:44)
[2020-08-10] MEDS ORDERED: ONDANSETRON HCL INJ 2MG/ML 2ML 2 MG/ML VIAL ONE (12:44)
[2020-08-10] MEDS ORDERED: DEXAMETHASONE SOD PHOS INJ 4 MG/ML VIAL ONE (12:44)
[2020-08-10] MEDS ORDERED: EPHEDRINE SULFATE INJ 50 MG/ML VIAL ONE (12:44)
--- NOTE | 2020-08-10 12:46 | NUR ---
Nirmal in the lab confirmed they did receive the culture sample from OR
--- NOTE | 2020-08-10 12:47 | NUR ---
Urine sample taken to the lab.
[2020-08-10 16:00] VITALS: BP 100/63
--- NOTE | 2020-08-10 17:44 | NUR ---
INFECTIOUS DISEASE PROGRESS NOTE DR. VICKEY ARREDONDO REVIEW OF SYSTEMS: A 14-point review of systems was completed and the patient denies any chills, pain, headache, dizziness, shortness of breath, cough, phlegm, chest pain, palpitations, nausea, vomiting, diarrhea, or constipation. OBJECTIVE: vs reviewed GENERAL: Supine, head of bed elevated. No acute distress. LUNGS: Clear to auscultation. Respiratory pattern even and unlabored. No supplemental oxygen. HEENT: EOMI. Moist mucous membranes. NECK: Supple. No lymphadenopathy, thyromegaly, or JVD noted. CARDIOVASCULAR: Regular rate and rhythm. No murmur. Normal saline infusing at 100 mL an hour. ABDOMEN: Bowel sounds positive. Soft, nontender. Obese. EXTREMITIES: Without pitting edema. Left BKA. Right lower extremity with Kerlix dressing around the foot. No drainage noted. NEUROLOGICAL: GCS 15. Nonfocal. LABORATORY DATA: reviewed IMAGING/OTHER: On 08/04, final echocardiogram showed low normal ventricular systolic function with an EF of between 15 to 55%, pseudo normal LV filling pattern consistent with elevated LA pressure. He had a left heart catheterization with pulmonary angiography, abdominal aortogram with bilateral lower extremity runoff on 08/[address] Buitrago. Please see operative report for details. Per documentation, he has two vessel coronary artery disease with a moderate LAD lesion and severe left circumflex artery lesion, severe right peripheral vascular disease. On 08/08, lower extremity vein mapping was done. No DVT in either extremity. Please see preliminary report for details. ASSESSMENT AND PLAN: 1. Right foot dry gangrene -severe peripheral vascular disease, history of left below-knee amputation. -Continue Zyvox and cefepime IV antibiotics for now -TMA today 2. Coronary artery disease. No complaints of chest pain. 3. Right carotid disease. 4. Acute kidney injury on chronic kidney disease stage 4 to 5. 5. 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 Hypertension with coronary artery disease, 7. Escherichia coli urinary tract infection, present on admission. Trudy Spaulding MSN, [employer], [facility]- Vickey Arredondo M.D.
[2020-08-10] MEDS: ATORVASTATIN 40 MG TAB PO SCH (19:48)
[2020-08-10 20:00] VITALS: BP 114/90
[2020-08-11] VITALS (9 sets, daily range): BP systolic 100–147; BP diastolic 54–94
--- NOTE | 2020-08-11 00:38 | Progress Note ---
DATE: 08/10/2020 REASON FOR PROGRESS NOTE: Coronary artery disease, dry gangrene of the right lower extremity, peripheral arterial disease; requested by Dr. Isaura Arredondo. SUBJECTIVE: The patient is clinically stable. Right lower extremity surgery. REVIEW OF SYSTEMS: No chest pain, shortness of breath. Neurologic status unchanged. No fever. PHYSICAL EXAMINATION: VITAL SIGNS: Blood pressure 130/75, pulse 75 and regular, respirations 16. NECK: Supple. Nontender. No JVD. CARDIAC: Regular rate and rhythm. Normal S1 and S2. No S3 or S4. LUNGS: Clear to auscultation and percussion bilaterally. ABDOMEN: Globoid. Benign. Good bowel sounds. EXTREMITIES: Right lower extremity dressing in place. LABORATORY DATA: White count 13.5, hemoglobin 8.1, hematocrit 26.8, and platelet count 210,000. IMPRESSION: Discussed with the granddaughter and daughter of the patient. Creatinine is elevated at 3.2. Both daughter and granddaughter would like to await before making any decisions about revascularization. MD GARCIA Gallagher/MODL /[id number]
--- NOTE | 2020-08-11 03:08 | Progress Note ---
DATE: 08/10/2020 Nephrology Progress Note SUBJECTIVE: The patient is doing okay. His renal function is now worsening. He now has a Horowitz catheter. Has some urine output, but very minimal. PHYSICAL EXAMINATION: VITAL SIGNS: Afebrile. Normotensive. He does have evidence of some hypotension. GENERAL: No acute distress. Alert and oriented x3. Cooperative on examination. PULMONARY: Clear to auscultation bilaterally. No wheezing, rales, or rhonchi. No crackles appreciated. CARDIOVASCULAR: Positive S1, S2. No murmurs, rubs, or gallops appreciated. ABDOMEN: Soft, nondistended, and nontender to palpation. Bowel sounds present. MUSCULOSKELETAL: Strength is 5/5 throughout. SKIN: Intact. Warm to touch. Good cap refill. LABORATORY DATA: CBC reviewed: White count is 13, hemoglobin 8.1. Chemistries shows sodium 138, potassium 3.3, chloride 108, bicarb 18, anion gap of 15, BUN is 55 and creatinine 3.75. Urine eosinophils not detected. UPC noted coronavirus nondetected. Microbiology, wound cultures are pending. IMPRESSION: 1. Acute kidney injury on chronic kidney disease, stage 4. 2. Diabetic foot ulcers, now status post debridement. 3. Type 2 diabetes. 4. Hypertension. 5. Anemia of chronic disease. 6. Secondary hyperparathyroidism. PLAN: At this time, I did insert a Horowitz catheter to see the urine output. Continue with IV fluids. Urine lytes have been ordered. His renal function has worsened. If he continues to worsen like this, which it seems that has been likely secondary to hypotension. After reviewing the records that he may require some temporary HD. I will go ahead and monitor him closely, if his renal output is worse tomorrow, we will go ahead and initiate per HD. MD CARMEN Simpson/ESME /[id number]
--- NOTE | 2020-08-11 03:17 | NUR ---
JARA CARE PROVIDED VIA CASTILE SOAP WIPES.
[2020-08-11] MEDS: CEFEPIME 1GM/NS 0.9% 50 ML 50 ML IV SCH (04:05)
--- NOTE | 2020-08-11 04:15 | NUR ---
BLADDER SCAN. 146 ML.
[2020-08-11 05:16] LABS: ANION GAP 14.1 mmol/L (8-16); CALCIUM 7.3 mg/dL (8.4-10.2); CREATININE, SERUM 4.55 mg/dL (0.72-1.25); POTASSIUM 4.1 mmol/L (3.5-5.1)
[2020-08-11] MEDS: LINEZOLID 600 MG/D5W 300ML 300 ML IV SCH (05:29)
--- NOTE | 2020-08-11 07:00 | NUR ---
RECEIVED BEDSIDE SHIFT REPORT FROM OFF GOING NIGHT NURSE. PATIENT IN STABLE CONDITION , NO S/S OF DISTRESS NOTED. NO PAIN VOICED. JARA IN PLACE AND PATENT DRAINING DARK RED URINE INTO THE DRAINAGE BAG. IV FLUIDS INFUSING, SITE ASYMPTOMATIC AND PATENT, TRANSPARENT DRESSING C/D/I. LEFT BKA NOTED. BED IN LOWEST POSITION AND LOCKED, SIDE RAILS X 2. CALL LIGHT WITHIN REACH.
--- NOTE | 2020-08-11 07:25 | NUR ---
REPORT GIVEN TO DAYSHIFT. ALERT AND ORIENTED. RESTING IN BED. NO SIGNS IV INFILTRATION. BED LOCKED AND IN LOW POSITION. CALL LIGHT WITHIN REACH.
[2020-08-11] MEDS: FAMOTIDINE 20 MG TAB PO SCH ×2 (07:30→16:30)
[2020-08-11] MEDS: INSULIN REGULAR, HUMAN 100 UNIT/1 ML 3ML VIAL SQ SCH ×4 (07:30→20:47)
[2020-08-11] MEDS: ASPIRIN 81 MG ENTERIC COATED PO SCH (08:39)
[2020-08-11] MEDS: SODIUM BICARBONATE 650 MG TAB PO SCH ×2 (08:39→17:39)
[2020-08-11] MEDS: TAMSULOSIN HCL 0.4 MG CAP PO SCH (08:39)
[2020-08-11] MEDS: INSULIN GLARGINE 100 UNITS/ML VIAL SQ SCH (09:00)
--- NOTE | 2020-08-11 09:14 | Progress Note ---
DATE: 08/11/2020 SUBJECTIVE: The patient is seen at bedside, relates he is doing significantly better since surgery. Denying any history of fever, chills, nausea, or vomiting. OBJECTIVE: VITAL SIGNS: Afebrile. Vital signs stable. EXTREMITIES: Dressing dry and intact. ASSESSMENT: Status post I and D Achilles tendon lengthening, transmetatarsal amputation with rotational flap closure. PLAN: Continue IV cefepime. Continue offloading. The patient awaiting to have vascular evaluation per Dr. Sanchez for possible bypass surgery, which will increase his chances of healing. SERGIO Houston/ESME /[id number]
[2020-08-11 09:25] LABS: BASOPHILS % 0.2 % (0.0-1.0); HEMATOCRIT 28.8 % (38.2-49.6); HEMOGLOBIN 8.6 g/dL (14.0-18.0); LYMPHOCYTES % 7.3 % (18.0-39.1); MEAN CORPUSCULAR HEMOGLOBIN 25.6 pg (28-32); MEAN CORPUSCULAR HGB CONC 29.9 g/dL (31-35); MEAN CORPUSCULAR VOLUME 85.7 fL (81-99); MONOCYTES # (AUTO) 0.4 (0.2-0.8); MONOCYTES % 3.1 % (4.4-11.3); NEUTROPHILS # (AUTO) 11.8 (2.1-6.9); NEUTROPHILS % 88.9 % (38.7-80.0); PLATELET COUNT 203 x10e3/uL (140-360); RED BLOOD COUNT 3.36 x10e6/uL (4.3-5.7); RED CELL DISTRIBUTION WIDTH 14.4 % (11.7-14.4)
[2020-08-11] MEDS ORDERED: HEPARIN SOD (PORCINE) 1000 UNIT/ML SDV ONE (13:05)
--- NOTE | 2020-08-11 15:57 | Diagnostic Imaging Report ---
PROCEDURE: Non-tunneled central venous catheter placement Procedural Personnel Attending physician(s): Carmelita Cardoza MD Fellow physician(s): None Resident physician(s): None Advanced practice provider(s): None Pre-procedure diagnosis: Acute kidney injury Post-procedure diagnosis: Same Indication: Performance of hemodialysis Additional clinical history: None Complications: No immediate complications. IMPRESSION: Insertion of right-sided non-tunneled triple-lumen temporary dialysis catheter, with tip in the expected location of the superior vena cava. Plan: The catheter may be used immediately. PROCEDURE SUMMARY: - Venous access with ultrasound guidance - Non-tunneled central venous catheter insertion with fluoroscopic guidance - Additional procedure(s): None PROCEDURE DETAILS: Pre-procedure Consent: Informed consent for the procedure including risks, benefits and alternatives was obtained and time-out was performed prior to the procedure. Preparation (MIPS): The site was prepared and draped using all elements of maximal sterile barrier technique including sterile gloves, sterile gown, cap, mask, large sterile sheet, sterile ultrasound probe cover, hand hygiene and cutaneous antisepsis with 2% chlorhexidine. Medical reason for site preparation exception (MIPS): Not applicable Anesthesia/sedation Level of anesthesia/sedation: No sedation Anesthesia/sedation administered by: Independent trained observer under attending supervision with continuous monitoring of the patient?s level of consciousness and physiologic status Total intra-service sedation time (minutes): NA Access Local anesthesia was administered. The vessel was sonographically evaluated and determined to be patent. Real time ultrasound was used to visualize needle entry into the vessel and a permanent image was stored. Vein accessed: Internal jugular vein Access technique: Micropuncture set with 21 gauge needle Catheter placement The access site was dilated and the catheter was placed into the vein over a wire under fluoroscopic guidance. The catheter tip location was fluoroscopically verified and a permanent image was stored.. A sterile dressing was applied. Catheter placed: Bard Trialysis Catheter size ([place]): 13 Catheter length (cm): 15 Catheter flush: Heparin (1000 units/mL) Catheter securement technique: Non-absorbable suture Contrast Contrast agent: None Contrast volume (mL): NA Radiation Dose Fluoroscopy time (minutes): 0.0 Reference air kerma (mGy): 0.3 Additional Details Additional description of procedure: None Equipment details: None Specimens removed: None Estimated blood loss (mL): Less than 10 Standardized report: [email or web address] Attestation Signer name: Carmelita Cardoza MD I attest that I was present for the entire procedure. I reviewed the stored images and agree with the report as written. Signed by: Carmelita Cardoza MD on 08/11/2020 3:53 PM
--- NOTE | 2020-08-11 16:50 | NUR ---
patient seen and examined chart reviewed this with the infectious disease no new complaints he wants to go home his review of system at present time a change in any type of negative cardiac negative for any pain Physical examination currently he is currently alert oriented does not seem to be in acute distress vital stable currently afebrile HEENT is a thick neck supple chest clear heart was 2 abdomen soft was present extremity no edema skin no rash Status post I and D Achilles tendon lengthening, transmetatarsal amputation with rotational flap closure. impression infection of the foot status post surgery as above. Osteomyelitis as post TMA [id number] kidney disease. Continue IV antibiotic for the time being recheck CBC recheck a panel we can discharge him home with oral antibiotic and few days when okay with podiatry n 08/04, final echocardiogram showed low normal ventricular systolic function with an EF of between 15 to 55%, pseudo normal LV filling pattern consistent with elevated LA pressure. He had a left heart catheterization with pulmonary angiography, abdominal aortogram with bilateral lower extremity runoff on 08/[address] Buitrago. Please see operative report for details. Per documentation, he has two vessel coronary artery disease with a moderate LAD lesion and severe left circumflex artery lesion, severe right peripheral vascular disease. On 08/08, lower extremity vein mapping was done. No DVT in either extremity. Please see preliminary report for details. ASSESSMENT AND PLAN: 1. Right foot dry gangrene -severe peripheral vascular disease, history of left below-knee amputation. -Continue Zyvox and cefepime IV antibiotics for now -TMA today 2. Coronary artery disease. No complaints of chest pain. 3. Right carotid disease. 4. Acute kidney injury on chronic kidney disease stage 4 to 5. 5. 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 Hypertension with coronary artery disease, 7. Escherichia coli urinary tract infection, present on admission.
[2020-08-11] MEDS: LINEZOLID 600 MG TAB PO SCH (17:39)
[2020-08-11] MEDS ORDERED: HEPARIN SOD (PORCINE) 1000 UNIT/ML 10ML MDV IM SCH (17:45)
[2020-08-11] MEDS ORDERED: SODIUM CHLORIDE 0.9% 1000ML 2,000 ML ONE (17:45)
[2020-08-11] MEDS: HEPARIN SOD (PORCINE) 1000 UNIT/ML SDV IV PRN (17:56)
[2020-08-11] MEDS: ACETAMINOPHEN 325 MG TAB PO PRN (18:00)
[2020-08-11] MEDS ORDERED: MANNITOL 25% 12.5GM/50 ML VIAL IV PRN (18:15)
--- NOTE | 2020-08-11 19:23 | NUR ---
COMPLETED BEDSIDE SHIFT REPORT AND ROUNDING WITH ONCOMING NIGHT NURSE. PATIENT IN STABLE CONDITION , NO S/S OF DISTRESS NOTED. PATIENT ON DIALYSIS AT THIS TIME. NO PAIN VOICED. JARA IN PLACE AND PATENT DRAINING BROWN COLOR URINE INTO THE DRAINAGE BAG. IV SITE ASYMPTOMATIC AND PATENT, TRANSPARENT DRESSING C/D/I. LEFT BKA NOTED. CASEY WRAP NATED TO THE RIGHT LOWER EXTREMITY C/D/I. BED IN LOWEST POSITION AND LOCKED, SIDE RAILS X 2. CALL LIGHT WITHIN REACH.
--- NOTE | 2020-08-11 20:59 | NUR ---
DIALYSIS COMPLETE. SPOKE TO DIALYSIS NURSE. REPORTS 0 L REMOVED. BLOOD CLEANSED. 135/65 B/P 77HR. Addendum: 08/11/20 at 2104 by Nga Puentes RN 98.8 TEMP
[2020-08-11] MEDS: ATORVASTATIN 40 MG TAB PO SCH (21:45)
[2020-08-11] MEDS: SODIUM CHLORIDE 0.9% 1000ML 1,000 ML IV SCH (23:12)
--- NOTE | 2020-08-11 23:12 | NUR ---
ATTEMPTED TO TURN. REFUSES REPOSITIONING AT THIS TIME.
[2020-08-12] VITALS (7 sets, daily range): BP systolic 118–149; BP diastolic 57–91
--- NOTE | 2020-08-12 02:53 | Progress Note ---
DATE: 08/11/2020 Nephrology Progress Note SUBJECTIVE: The patient is doing well today. I spoke with the patient by phone, stated that his urine output has declined. His renal function has not improved and he will need hemodialysis. He has agreed. IR placed a temporary HD catheter for HD treatment #1 today. PHYSICAL EXAMINATION: VITAL SIGNS: He is afebrile, normotensive. Respiratory rate is good. GENERAL: Not in acute distress. Alert and oriented x3. He is cooperative on examination. HEENT: Head; normocephalic, atraumatic. Eyes; pupils are equal, round, and reactive to light bilaterally. Extraocular movements intact bilaterally. Throat; no evidence of erythema or exudates in the posterior pharynx. Has poor dentition. NECK: Supple. Good range of motion. PULMONARY: Clear to auscultation bilaterally. No wheezing, no rales, no rhonchi, no crackles appreciated. CARDIOVASCULAR: Positive S1 and S2. No murmurs, rubs, or gallops appreciated. ABDOMEN: Soft, nondistended, and nontender to palpation. Bowel sounds present. MUSCULOSKELETAL: Strength is 5/5 throughout. LABORATORY DATA: CBC; white count is 13, hemoglobin 8.6, hematocrit is 28, platelets of 203. Chemistry reviewed shows sodium of 135, potassium 4.1, chloride 107, bicarb 18, anion gap of 14, BUN 16, creatinine 4.5, glucose is 153, calcium is 7.3. IMPRESSION: 1. Acute kidney injury on chronic kidney disease, stage 4, likely secondary to underlying acute tubular necrosis from hypotension. 2. Diabetic foot ulcer, now status post debridement. 3. Type 2 diabetes. 4. Hypertension. 5. Anemia of chronic kidney disease. 6. Secondary hyperparathyroidism. 7. Oliguria. PLAN: At this time, renal function has not improved, in fact got worse. Urine output has declined. The patient agreed to a temporary HD catheter and HD treatment #1 today. Blood flow rate is 200 mL/minutes. Dialysis flow rate is 500 mL to 3K bath, 2.5 calcium, ultrafiltration 0, duration is 2 hours. Mannitol before and during treatment. We will perform HD tomorrow. The patient agreed to dialysis. Nurse was present throughout the entire conversation, Jazzy. The patient verbalized understanding and agrees to plan of care. MD CARMEN Simpson/ESME /[id number]
[2020-08-12] MEDS: CEFEPIME 1GM/NS 0.9% 50 ML 50 ML IV SCH (04:38)
--- NOTE | 2020-08-12 04:48 | NUR ---
JARA CARE PROVIDED VIA CASTILE SOAP WIPES.
[2020-08-12] MEDS: LINEZOLID 600 MG TAB PO SCH ×2 (05:23→17:19)
[2020-08-12 06:18] LABS: BASOPHILS % 0.3 % (0.0-1.0); EOSINOPHILS # (AUTO) 0.1 (0.0-0.4); EOSINOPHILS % 0.6 % (0.0-6.0); HEMATOCRIT 26.9 % (38.2-49.6); HEMOGLOBIN 8.3 g/dL (14.0-18.0); LYMPHOCYTES # (AUTO) 1.8 (1.0-3.2); LYMPHOCYTES % 15.5 % (18.0-39.1); MEAN CORPUSCULAR HEMOGLOBIN 26.5 pg (28-32); MEAN CORPUSCULAR HGB CONC 30.9 g/dL (31-35); MEAN CORPUSCULAR VOLUME 85.9 fL (81-99); MONOCYTES # (AUTO) 0.5 (0.2-0.8); MONOCYTES % 3.8 % (4.4-11.3); NEUTROPHILS # (AUTO) 9.3 (2.1-6.9); NEUTROPHILS % 79.3 % (38.7-80.0); PLATELET COUNT 134 x10e3/uL (140-360); RED BLOOD COUNT 3.13 x10e6/uL (4.3-5.7); RED CELL DISTRIBUTION WIDTH 14.6 % (11.7-14.4)
[2020-08-12 06:41] LABS: ALBUMIN 2.8 g/dL (3.5-5.0); ALBUMIN/GLOBULIN RATIO 0.9 (0.8-2.0); ANION GAP 14.8 mmol/L (8-16); CALCIUM 7.1 mg/dL (8.4-10.2); CREATININE, SERUM 4.14 mg/dL (0.72-1.25); POTASSIUM 3.8 mmol/L (3.5-5.1)
--- NOTE | 2020-08-12 07:00 | NUR ---
RECEIVED BEDSIDE SHIFT REPORT FROM OFF GOING NIGHT NURSE. PATIENT IN STABLE CONDITION , NO S/S OF DISTRESS NOTED.PATIENT ASLEEP, EASILY AROUSED. NO PAIN VOICED. JARA IN PLACE AND PATENT DRAINING DARK BROWN URINE INTO THE DRAINAGE BAG. IV SITE ASYMPTOMATIC AND PATENT, TRANSPARENT DRESSING C/D/I. LEFT BKA NOTED. CASEY WRAP TO THE RIGHT LOWER EXTREMITY C/D/I. BED IN LOWEST POSITION AND LOCKED, SIDE RAILS X 2. CALL LIGHT WITHIN REACH.
--- NOTE | 2020-08-12 07:09 | NUR ---
REPORT GIVEN TO DAYSHIFT NURSE. ALERT AND RESTING IN BED. NO SIGNS IV INFILTRATION. BED LOCKED AND IN LOW POSITION. SR UPX2. BED ALARM ACTIVATED. CALL LIGHT WITHIN REACH.
[2020-08-12] MEDS: INSULIN REGULAR, HUMAN 100 UNIT/1 ML 3ML VIAL SQ SCH ×4 (07:30→21:00)
[2020-08-12] MEDS ORDERED: SODIUM CHLORIDE 0.9% 1000ML 2,000 ML ONE (08:10)
[2020-08-12] MEDS: FAMOTIDINE 20 MG TAB PO SCH ×2 (08:58→16:30)
[2020-08-12] MEDS: SODIUM BICARBONATE 650 MG TAB PO SCH ×2 (08:59→17:19)
[2020-08-12] MEDS: TAMSULOSIN HCL 0.4 MG CAP PO SCH (08:59)
[2020-08-12] MEDS: INSULIN GLARGINE 100 UNITS/ML VIAL SQ SCH (09:00)
--- NOTE | 2020-08-12 09:12 | NUR ---
Infectious disease progress note patient seen and examined events noted in the r chart reviewed [id number]
[2020-08-12] MEDS: HEPARIN SOD (PORCINE) 1000 UNIT/ML SDV IV PRN (09:36)
[2020-08-12] MEDS ORDERED: SODIUM CHLORIDE 0.9% 1000ML 2,000 ML IV PRN (11:45)
[2020-08-12] MEDS ORDERED: HEPARIN SOD (PORCINE) 1000 UNIT/ML SDV IV PRN (11:45)
--- NOTE | 2020-08-12 12:49 | NUR ---
DIALYSIS COMPLETED 2.5 LITTERS PULLED OFF. PATIENT TOLERATED DIALYSIS WELL. VITAL SIGNS STABLE.
--- NOTE | 2020-08-12 16:21 | Progress Note ---
DATE: SUBJECTIVE: Mr. Quiñones is doing well. There are no new complaints. PHYSICAL EXAMINATION: GENERAL: Currently alert, oriented. VITAL SIGNS: Stable, currently afebrile. HEENT: He is not icteric. NECK: Supple. CHEST: Clear. HEART: S1, S2. ABDOMEN: Soft. Bowel sounds present. EXTREMITIES: No edema. SKIN: No rash. IMPRESSION: Acute kidney injury, chronic kidney disease, diabetic foot ulcer status post debridement, diabetes mellitus type 2. From Infectious Disease point of view, the patient will be discharge home with oral doxycycline 100 mg p.o. b.i.d. for 2 weeks. He is growing Staph aureus MSSA. Chronic kidney disease. We will follow as an outpatient. Continue with wound care and supportive care. MD ELEANOR Oh/ESME /[id number]
--- NOTE | 2020-08-12 18:01 | Progress Note ---
DATE: 08/12/2020 REASON FOR PROGRESS NOTE: Coronary artery disease; gangrene of right lower extremity, status post transmetatarsal amputation; peripheral arterial disease; end-stage renal failure; requested by Dr. Isaura Arredondo. SUBJECTIVE: The patient is clinically stable and resting comfortably in bed. Right lower extremity dressing is clean and dry. REVIEW OF SYSTEMS: No chest pain, shortness of breath, or fever. Neurologic status is unchanged. Postoperative pain is well controlled. PHYSICAL EXAMINATION: VITAL SIGNS: Blood pressure 125/75, pulse 80 and regular, respirations 16 and unlabored. NECK: Supple and nontender. No JVD. CARDIAC: Regular rate and rhythm. Normal S1 and S2. No S3 or S4. LUNGS: Clear to auscultation and percussion bilaterally. ABDOMEN: Globoid. Benign. EXTREMITIES: Right lower extremity dressing in place. LABORATORIES: White count 11.7, hemoglobin 8.3, hematocrit 26.9, and platelet count 134,000. INR 1.15. Sodium 138, potassium 3.8, BUN is 49, creatinine 4.16. IMPRESSION: The patient has initiated dialysis via a catheter. This is functioning well. He will need permanent dialysis access. Vein mapping will be obtained. Right femoral popliteal bypass likely in order given the patient's borderline perfusion at the transmetatarsal site. I will discuss this with his other attendings. MD LANETTE GallagherL/MODL /[id number]
--- NOTE | 2020-08-12 19:23 | NUR ---
COMPLETED BEDSIDE SHIFT REPORT AND ROUNDING WITH ONCOMING NIGHT NURSE. PATIENT IN STABLE CONDITION , NO S/S OF DISTRESS NOTED. NO PAIN VOICED. JARA IN PLACE AND PATENT DRAINING DARK [place] COLOR URINE INTO THE DRAINAGE BAG. IV SITE ASYMPTOMATIC AND PATENT, TRANSPARENT DRESSING C/D/I. LEFT BKA NOTED. CASEY WRAP APPLIED TO THE RIGHT LOWER EXTREMITY C/D/I. BED IN LOWEST POSITION AND LOCKED, SIDE RAILS X 2. CALL LIGHT WITHIN REACH.
--- NOTE | 2020-08-12 19:30 | NUR ---
Received patient asleep, easily arousable to voice stimuli , response when called, call light within easy reach, will continue to monitor closely
[2020-08-12] MEDS: ATORVASTATIN 40 MG TAB PO SCH (21:30)
[2020-08-13] VITALS (8 sets, daily range): BP systolic 126–153; BP diastolic 52–82
--- NOTE | 2020-08-13 03:12 | Progress Note ---
DATE: 08/12/2020 Nephrology Progress Note SUBJECTIVE: The patient doing well today with no complaints. He has a 2nd treatment of HD. Has very minimal urine output now. LABORATORY DATA: Labs reviewed, stable. URINE OUTPUT DOCUMENTED: 240 mL. MICROBIOLOGY: Noted PHYSICAL EXAMINATION: VITAL SIGNS: Afebrile. Normotensive. Respiratory rate is good. GENERAL: Not in acute distress. Alert and oriented x3. Cooperative on examination. HEENT: Head; normocephalic, atraumatic. Eyes; pupils are equal, round, and reactive to light bilaterally. Extraocular movements intact bilaterally. Throat; no evidence of erythema or exudates in the posterior pharynx. Has poor dentition. NECK: Supple. Good range of motion. PULMONARY: Clear to auscultation bilaterally. No wheezing, no rales, no rhonchi, no crackles appreciated. CARDIOVASCULAR: Positive S1 and S2. No murmurs, rubs, or gallops appreciated. ABDOMEN: Soft, nondistended, and nontender to palpation. Bowel sounds present. MUSCULOSKELETAL: Strength is 5/5 throughout. No evidence of any muscle deficits on examination. No weakness appreciated. NEUROLOGIC: Cranial nerves 2 through 12 are grossly intact. No evidence of any neurological deficits on exam. SKIN: Intact. Warm to touch. Good cap refill. PSYCHIATRIC: Normal affect and mood. EXTREMITIES: No edema. Good range of motion throughout. IMPRESSION: 1. Acute kidney injury on chronic kidney disease, stage 4 secondary to underlying chronic disease with possible underlying acute tubular necrosis from hypotension. 2. Diabetic foot ulcer, now status post debridement. 3. Type 2 diabetes. 4. Hypertension. 5. Anemia of chronic disease. 6. Secondary hyperparathyroidism. 7. Oliguria. PLAN: At this time, HD treatment #2 today and the urine output is at minimum. Get repeat labs in the morning. I told the patient yesterday and today that his renal function at baseline is chronic and which he endorses. Hopefully, we can get him up for dialysis prior to being discharged. We will monitor urine output and electrolytes. MD CAMREN Simpson/MODL /[id number]
[2020-08-13] MEDS ORDERED: SODIUM CHLORIDE 0.9% 250ML 250 ML ONE (05:07)
[2020-08-13] MEDS: CEFEPIME 1GM/NS 0.9% 50 ML 50 ML IV SCH (05:19)
[2020-08-13] MEDS: LINEZOLID 600 MG TAB PO SCH ×2 (05:19→17:09)
--- NOTE | 2020-08-13 07:00 | NUR ---
RECEIVED BEDSIDE SHIFT REPORT FROM OFF GOING NIGHT NURSE. PATIENT IN STABLE CONDITION , NO S/S OF DISTRESS NOTED.PATIENT LETHARGIC. NO PAIN VOICED. JARA IN PLACE AND PATENT DRAINING DARK BIANCA COLOR URINE INTO THE DRAINAGE BAG. IV SITE ASYMPTOMATIC AND PATENT, TRANSPARENT DRESSING C/D/I. LEFT BKA NOTED. CASEY WRAP TO THE RIGHT LOWER EXTREMITY C/D/I. BED IN LOWEST POSITION AND LOCKED, SIDE RAILS X 2. CALL LIGHT WITHIN REACH.
[2020-08-13] MEDS: INSULIN REGULAR, HUMAN 100 UNIT/1 ML 3ML VIAL SQ SCH ×4 (07:30→20:53)
[2020-08-13] MEDS: FAMOTIDINE 20 MG TAB PO SCH ×2 (07:30→16:04)
[2020-08-13 07:48] LABS: ALBUMIN 2.9 g/dL (3.5-5.0); ANION GAP 14.9 mmol/L (8-16); CALCIUM 7.2 mg/dL (8.4-10.2); CREATININE, SERUM 4.05 mg/dL (0.72-1.25); POTASSIUM 3.9 mmol/L (3.5-5.1)
[2020-08-13] MEDS: INSULIN GLARGINE 100 UNITS/ML VIAL SQ SCH (09:00)
[2020-08-13] MEDS ORDERED: SODIUM CHLORIDE 0.9% 1000ML 2,000 ML ONE (09:40)
[2020-08-13] MEDS: SODIUM BICARBONATE 650 MG TAB PO SCH ×2 (09:42→17:09)
[2020-08-13] MEDS: TAMSULOSIN HCL 0.4 MG CAP PO SCH (09:42)
[2020-08-13] MEDS ORDERED: ASPIRIN 325 MG TAB EC PO NR (12:30)
[2020-08-13] MEDS ORDERED: CLOPIDOGREL BISULFATE 75 MG TAB PO NR (12:30)
--- NOTE | 2020-08-13 16:44 | NUR ---
Mr. Quiñones is doing well. There are no new complaints. PHYSICAL EXAMINATION: GENERAL: Currently alert, oriented. VITAL SIGNS: Stable, currently afebrile. HEENT: He is not icteric. NECK: Supple. CHEST: Clear. HEART: S1, S2. ABDOMEN: Soft. Bowel sounds present. EXTREMITIES: No edema. SKIN: No rash. IMPRESSION: Acute kidney injury, chronic kidney disease, diabetic foot ulcer status post debridement, diabetes mellitus type 2. From Infectious Disease point of view, the patient will be discharge home with oral doxycycline 100 mg p.o. b.i.d. for 2 weeks. He is growing Staph aureus MSSA. Chronic kidney disease. We will follow as an outpatient. Continue with wound care and supportive care.
--- NOTE | 2020-08-13 19:10 | NUR ---
Bedside report and walking rounds completed with off going nurse. Patient in bed with call light within reach. Bed locked and in lowest position. Instructed to call for assistance as needed. Will continue to monitor.
[2020-08-13] MEDS: ATORVASTATIN 40 MG TAB PO SCH (20:53)
[2020-08-14] VITALS (10 sets, daily range): BP systolic 123–166; BP diastolic 66–88
--- NOTE | 2020-08-14 02:36 | Progress Note ---
DATE: 08/13/2020 Nephrology Progress Note SUBJECTIVE: The patient doing well today with no complaints. PHYSICAL EXAMINATION: VITAL SIGNS: He is afebrile, normotensive, respiratory rate is good. GENERAL: No acute distress. Alert and oriented x3. Cooperative on examination. PULMONARY: Clear to auscultation bilaterally. No wheezing, rales, or rhonchi. No crackles appreciated. CARDIOVASCULAR: Positive S1, S2. No murmurs, rubs, or gallops. ABDOMEN: Soft, nondistended, nontender to palpation. Bowel sounds present. MUSCULOSKELETAL: Strength is 5/5 throughout. No evidence of any muscle deficits on examination. No weakness appreciated. NEUROLOGICAL: Cranial nerves 2 through 12 grossly intact. No evidence of any neurological deficits on exam. SKIN: Intact. Warm to touch. Good cap refill. LABORATORY DATA: Show CBC, white count 11, hemoglobin 8.3, hematocrit 27, platelets of 134. Chemistry; sodium 139, potassium 3.9, chloride 106, bicarb 22, anion gap of 14, BUN is 42 and creatinine is 4.05. His glucose is 102. Urine output noted of urine. IMPRESSION: 1. Acute kidney injury on chronic kidney disease, stage 4, secondary to underlying chronic disease from diabetes and hypertension, also underlying acute tubular necrosis , hypotension. 2. Diabetic foot ulcer, status post debridement. 3. Type 2 diabetes. 4. Hypertension. 5. Anemia of chronic disease. 6. Secondary hyperparathyroidism. 7. Oliguria. PLAN: At this time, his electrolytes are stable. His urine output is oliguric. HD treatment #3 tomorrow. Monitor urine output. Get a.m. labs. He is stable. Does not need dialysis today. MD CARMEN Simpson/MODL /[id number]
[2020-08-14] MEDS: LINEZOLID 600 MG TAB PO SCH (05:47)
[2020-08-14] MEDS: CEFEPIME 1GM/NS 0.9% 50 ML 50 ML IV SCH (05:47)
[2020-08-14 06:15] LABS: BASOPHILS % 0.4 % (0.0-1.0); EOSINOPHILS # (AUTO) 0.2 (0.0-0.4); EOSINOPHILS % 1.6 % (0.0-6.0); HEMATOCRIT 27.5 % (38.2-49.6); HEMOGLOBIN 8.5 g/dL (14.0-18.0); LYMPHOCYTES # (AUTO) 1.6 (1.0-3.2); LYMPHOCYTES % 14.6 % (18.0-39.1); MEAN CORPUSCULAR HEMOGLOBIN 25.4 pg (28-32); MEAN CORPUSCULAR HGB CONC 30.9 g/dL (31-35); MEAN CORPUSCULAR VOLUME 82.3 fL (81-99); MONOCYTES # (AUTO) 0.5 (0.2-0.8); MONOCYTES % 4.3 % (4.4-11.3); NEUTROPHILS # (AUTO) 8.6 (2.1-6.9); NEUTROPHILS % 78.6 % (38.7-80.0); PLATELET COUNT 66 x10e3/uL (140-360); RED BLOOD COUNT 3.34 x10e6/uL (4.3-5.7)
[2020-08-14 06:44] LABS: ALBUMIN 2.8 g/dL (3.5-5.0); ALBUMIN/GLOBULIN RATIO 0.9 (0.8-2.0); CALCIUM 7.1 mg/dL (8.4-10.2); CREATININE, SERUM 4.62 mg/dL (0.72-1.25)
--- NOTE | 2020-08-14 07:04 | NUR ---
open hearth furnace laborer called asked if patient was ready to come down for angiogram during shift change. US put open hearth furnace laborer on hold until nurse could come to the phone. open hearth furnace laborer hung up and called back. open hearth furnace laborer was told that the patient is ready and open hearth furnace laborer stated that they were coming up "right now" to get the patient because the doctor was waiting.
--- NOTE | 2020-08-14 07:19 | NUR ---
pt left the unit for wheelabrator operator
[2020-08-14] MEDS ORDERED: HEPARIN SOD (PORCINE) 1000 UNIT/ML 30ML ONE (07:24)
[2020-08-14] MEDS ORDERED: MIDAZOLAM HCL 2 MG/2 ML VIAL ONE (07:24)
[2020-08-14] MEDS ORDERED: FENTANYL CITRATE/PF 100MCG/2 ML INJ ONE (07:25)
[2020-08-14] MEDS ORDERED: SODIUM CHLORIDE 0.9% 1000ML 1,000 ML ONE (07:25)
[2020-08-14] MEDS ORDERED: NITROGLYCERIN/D5W 200 MCG/ML 250 ML ONE (07:25)
[2020-08-14] MEDS ORDERED: IOPAMIDOL 300MG/ML 100 ML INFUS..BTL IV ONE (07:25)
[2020-08-14] MEDS ORDERED: HEPARIN SOD/SOD CHLORIDE 2,000 ML ONE (07:25)
[2020-08-14] MEDS ORDERED: LIDOCAINE HCL 2% LOCAL 20 ML VIAL ONE (07:25)
[2020-08-14] MEDS: INSULIN REGULAR, HUMAN 100 UNIT/1 ML 3ML VIAL SQ SCH ×4 (07:30→21:00)
[2020-08-14] MEDS: FAMOTIDINE 20 MG TAB PO SCH ×2 (07:30→16:39)
[2020-08-14] MEDS: SODIUM BICARBONATE 650 MG TAB PO SCH ×2 (07:35→16:39)
[2020-08-14] MEDS: ASPIRIN 81 MG ENTERIC COATED PO SCH (07:35)
[2020-08-14] MEDS: CLOPIDOGREL BISULFATE 75 MG TAB PO SCH (07:35)
--- NOTE | 2020-08-14 08:10 | NUR ---
cardiac cath lab manager called and stated that the patient was dirty and that they don't have any diapers to change the patient. cardiac cath lab manager asked RN to bring a diaper to the cardiac cath lab manager. Once diaper was handed to cardiac cath lab manager nurse, MS RN was accused of leaving the patient soiled by cardiac cath lab manager RNs. informed cardiac cath lab manager RNs that the patient was not soiled when bed side shift report was given.
--- NOTE | 2020-08-14 08:44 | NUR ---
0800 vitals were not able to be done because the patient was off the unit
[2020-08-14] MEDS ORDERED: LIDOCAINE 1% W/EPINEPHRINE 20 ML VIAL ONE (09:37)
[2020-08-14] MEDS ORDERED: ONDANSETRON HCL INJ 2MG/ML 2ML 2 MG/ML VIAL IV PRN (10:00)
[2020-08-14] MEDS ORDERED: DEXTROSE 5%/0.45% SOD CHL 1,000 ML IV SCH (10:00)
[2020-08-14] MEDS: TAMSULOSIN HCL 0.4 MG CAP PO SCH (10:17)
--- NOTE | 2020-08-14 11:40 | NUR ---
INFECTIOUS DISEASE PROGRESS NOTE DR. VICKEY BOWSER REVIEW OF SYSTEMS: A 14-point review of systems was completed and the patient denies any chills, pain, headache, dizziness, shortness of breath, cough, phlegm, chest pain, palpitations, nausea, vomiting, diarrhea, or constipation. OBJECTIVE: vs reviewed GENERAL: Supine, head of bed elevated. No acute distress. LUNGS: Clear to auscultation. Respiratory pattern even and unlabored. No supplemental oxygen. HEENT: EOMI. Moist mucous membranes. NECK: Supple. No lymphadenopathy, thyromegaly, or JVD noted. CARDIOVASCULAR: Regular rate and rhythm. No murmur. Normal saline infusing at 100 mL an hour. ABDOMEN: Bowel sounds positive. Soft, nontender. Obese. EXTREMITIES: Without pitting edema. Left BKA. Right lower extremity with Kerlix dressing around the foot. No drainage noted. NEUROLOGICAL: GCS 15. Nonfocal. LABORATORY DATA: reviewed IMAGING/OTHER: reviewed ASSESSMENT AND PLAN: 1. Right foot dry gangrene -severe peripheral vascular disease, history of left below-knee amputation. -Ancef while hospitalized -can d.c with oral Keflex x2 weeks and see me in clinic in 2-3 weeks 2. Coronary artery disease. No complaints of chest pain. 3. Right carotid disease. 4. Acute kidney injury on chronic kidney disease stage 4 to 5. 5. 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 Hypertension with coronary artery disease, 7. Escherichia coli urinary tract infection, present on admission. Trudy Spaulding MSN, INFORMATICA MDM DEVELOPER, [facility]- Vickey Bowser M.D.
--- NOTE | 2020-08-14 14:32 | NUR ---
Nutrition Screen Note RD Recommendation for Physician: - Continue 1800 ADA, Renal diet Plan of Care: RD following, monitoring for tolerance and adequacy Nutrition reason for involvement: follow up Primary Diagnose(s): cellulitis of R foot, gangrene toe of R foot PMH: DM, PVD, HTN, severe neuropathy, L BKA Ht: 65 in Wt: 208 lb BMI: 34.6 kg/m2 AIBW: [address] Assessment: 08/14: Follow up. Pt discussed during MDR. Pt out of room this am for procedure at time of initial visit and working with PT at time of second attempted visit. Pt eating 50-100% of meals, no GI distress recorded- LBM 08/13. Pt with ongoing monitoring for HD needs, plan for HD tomorrow per MD notes. Labs and meds reviewed. Chart reviewed. Will continue to monitor. (08/07) 70 YOM admitted for gangrene of toe on R foot, seen today for LOS. Pt reports good appetite and po intake currently and OXIDE FURNACE TENDER. Pt denies wt loss and denies GI distress. Pt with no questions or concerns at time of visit. Pt s/p L heart cath today and now with CKD4 with secondary hyperparathyroidism per MD notes. Pt discussed during MDR. Chart reviewed. Labs and meds reviewed. Will continue to monitor. Current Diet: 1800 ADA, Renal Malnutrition Evaluation (08/07/20) The patient does not meet criteria for a specified degree of malnutrition at this time. Will re-evaluate at follow-up as appropriate. Diet Education Needs Assessment: Diet education not indicated. Diet tolerance: tolerating po Nutrition Care Level: low Signed: Dorothea Darden RD, LD, [facility]
--- NOTE | 2020-08-14 16:48 | NUR ---
Per Dr. Abad, he will make decision on whether or not pt will need outpatient HD tomorrow.
--- NOTE | 2020-08-14 17:29 | Operative Report ---
DATE OF PROCEDURE: 08/14/2020 SURGEON: Luiz Buitrago MD CONTINUATION DICTATION DESCRIPTION OF PROCEDURE: The support catheter was placed into the distal right popliteal artery and right anterior tibial artery runoff was performed revealing several high-grade lesions as well as a total occlusion in the mid to distal right anterior tibial artery. We switched out for a 0.014 Print Color Matcher guidewire 300 cm and with great care were able to cross the entire SHOW DOG TRAINER segment and place the wire into the right dorsalis pedis artery with it going into the stump region. At that point in time, we decided to proceed with the intervention. Of note, he was on heparin drip and heparin protocol for the revascularization portion. We initially took a 5.0 x 150 mm Ultraverse balloon and pre-dilated the entire right popliteal all the way back to the right common femoral artery with serial 8 atmosphere inflations treating this entire segment. Next, we took a Lutonix 6.0 x 220 balloon treating the right popliteal artery in the mid segment all the way back into the right SFA for a 3 minute inflation. We then took it overlapping Admiral 6.0 x 250 mm balloon and treating the mid right SFA all the way down to the right common femoral artery with a 5 atmosphere inflation for 3 minutes. Angiography at that point in time revealed yielding of all our stenoses, however, at the lesion that was tightest there were notable 2 dissections that may be problematic if left alone. We decided to proceed with a stenting strategy at that segment left for later on. We turned our attention to [id number] vessels. We took a 3.0 x 150 mm Ultraverse balloon and deployed it from the right dorsalis pedis treating the entire right anterior tibial artery with a 6 followed by 6 followed by 8 atmosphere inflation. This revealed very good results for the right anterior tibial artery proper, however, that segment fits from the ostial right anterior tibial artery as it enters into the right popliteal artery, which interestingly had the stent was not yielded. We took a Lutonix 4.0 x 40 mm balloon and went with 12 atmosphere inflation there for 3 minutes, which yielded the lesion and opened up the artery quite nicely. At that point in time, angiography revealed excellent results for the entire right anterior tibial artery and this is the flow going into the foot itself without any problems. We finally turned our attention to the mid right SFA, which had two areas of dissection and we placed an overlapping Everflex 7.0 x 150 self expanding stent and just proximal to another Everflex 7.0 x 40 stent resulting in 0% residual stenosis and no issues in those treated segments. At that point in time, we decided to conclude the case with excellent angiographic results of our complex revascularization without any complications. At that point in time, we pulled our distention sheath out and sealed the groin with a left common femoral Angio-Seal closure device achieving hemostasis. COMPLICATIONS: None. ESTIMATED FLUID LOSS: Minimal. FINDINGS: 1. The right SFA has an 80% proximal stenosis followed by long 95% calcified stenosis in the mid right SFA followed by 90% stenosis in the distal right SFA entering into the popliteal artery. There is a 95% distal right popliteal artery stenosis entering into the proximal right anterior tibial artery. The right TP trunk, right peroneal and right posterior tibial arteries are 100% occluded throughout. 2. The right anterior tibial artery has a 70% mid followed by 100% occlusion in the mid to distal right anterior tibial artery with just extensive collateral at the anterior of the foot. INTERVENTION SUMMARY: Successful treatment of the long SFA 80% to 95% lesion with drug-eluting balloon angioplasty with a 6 mm balloon followed by implantation of two overlapping Everflex 7.0 x 40 followed by 7.0 x 150 mm drug-eluting stent with less than 10% residual stenosis, normal flow and no complications. Successful treatment of the right popliteal artery lesion with a 6.0 drug-eluting balloon angioplasty proximally followed by a 4.0 drug-eluting balloon angioplasty distally resulting in less than 10% residual stenosis from flow and no complications. Successful treatment of the entire right TOWER WATCHMAN, which included 95% ostial, 70% mid and 100% total occlusion in the distal right anterior tibial artery with largely balloon angioplasty with a 3.0 mm balloon resulting in less than 10% residual stenosis for establishment of flow of the right anterior tibial artery into the dorsalis pedis artery and no complications. PLAN/RECOMMENDATIONS: 1. Aspirin and Plavix therapy. 2. Statin therapy. 3. Aggressive risk factor modification medical therapy. 4. We will discuss with CV surgery for further care. MD BRIAN Dey/MODL /[id number]
--- NOTE | 2020-08-14 18:44 | Progress Note ---
DATE: 08/14/2020 REASON FOR PROGRESS NOTE: Gangrene of right lower extremity, coronary artery disease, status post transmetatarsal amputation, status post right SFA angioplasty, end-stage renal failure; requested by Dr. Isaura Arredondo. SUBJECTIVE: The patient clinically stable and resting comfortably in bed after angioplasty and stent. Right lower extremity dressing is clean and dry. Right lower extremity is warm. REVIEW OF SYSTEMS: No chest pain, shortness of breath, or fever. Neurologic status unchanged. Postoperative pain well controlled. PHYSICAL EXAMINATION: VITAL SIGNS: Blood pressure 130/70, pulse 80 and regular, respirations 16, and unlabored. NECK: Supple and nontender. There is no JVD. CARDIAC: Shows a regular rate and rhythm. Normal S1, S2. No S3 or S4. LUNGS: Clear to auscultation and percussion bilaterally. ABDOMEN: Globoid. Benign. EXTREMITIES: Right lower extremity dressing in place. Right lower extremity warm and well perfused. LABORATORY DATA: White count 10.97, hemoglobin 8.5, hematocrit 27.5, and platelet count 66,000. Sodium 142, potassium 4.0, BUN 50, creatinine 4.69. IMPRESSION: Doing well after angioplasty. Planning dialysis today. We will need permanent dialysis access. Vein mapping has been requested. Nicolas Sanchez MD GVL/MODL /[id number]
--- NOTE | 2020-08-14 23:15 | Progress Note ---
DATE: SUBJECTIVE: The patient is lying supine in bed with head of bed elevated. He is seen during hemodialysis with ultrafiltration goal of 2500 mL. Blood pressure 190/85. Denies pain. No new complaints. No fever or chills. No major events. OBJECTIVE: VITAL SIGNS: Temperature 97.9, pulse 86, blood pressure 140/67, respirations 21, oxygen saturation 96%. GENERAL: No acute distress. LUNGS: Clear to auscultation. Respiratory pattern even and unlabored. No supplemental oxygen. HEENT: EOMI. Moist mucous membranes. NECK: Supple. CARDIOVASCULAR: Regular rate and rhythm. No murmur. Right chest hemodialysis catheter. ABDOMEN: Bowel sounds positive. Soft, nontender. EXTREMITIES: No pitting edema. No clubbing or cyanosis. No signs of DVT. Right lower extremity dressed with dressing. Status post right TMA, wound intact. Left BKA. NEUROLOGICAL: GCS 15. Nonfocal. DIAGNOSTIC STUDIES/LABORATORY DATA: WBC 10.97, hemoglobin 8.5, hematocrit 27.5, platelets 66,000. Sodium 142, potassium 4, chloride 106, CO2 23, BUN 50, creatinine 4.62, estimated GFR 13, glucose 88, calcium 7.1. Fingerstick blood glucose levels 104, 113, 154. Total bilirubin 0.5, AST 16, ALT 11, alkaline phosphatase 57, total protein 5.8, albumin 2.8. SEROLOGY: Hepatitis panel pending. IMAGING: No new imaging. PROCEDURES: The patient underwent drug-eluting balloon angioplasty right SFA today. Hemodialysis today. ASSESSMENT/PLAN: 1. Severe peripheral arterial disease with gangrene, status post right transmetatarsal amputation, history left below-knee amputation. Continue IV antibiotics, cefepime and Zyvox and wound care. 2. Controlled type 2 diabetes mellitus with peripheral arterial disease. Continue sliding scale insulin. Monitor fingerstick blood glucose levels. 3. Acute kidney injury on chronic kidney disease progressing to end-stage renal disease. Continue hemodialysis per Nephrology. Per documentation, director water and waste services to decide tomorrow whether the patient will require hemodialysis on an outpatient basis. If so, will need hemodialysis chair set up outpatient. Per documentation from Cardiovascular surgery, vein mapping underway for possible AV graft surgical procedure. 4. Coronary artery disease with multi-vessel disease. Cardiology following. May need coronary artery bypass graft at some point. 5. Prophylaxis. Pepcid. Inpatient billing code [id number]. Time spent 35 minutes. Dictated by Levi Adams, COMMERCIAL PEST CONTROL REPRESENTATIVE MD OSMEL BrewerP/ESME /[id number]
[2020-08-14] MEDS: ATORVASTATIN 40 MG TAB PO SCH (23:39)
[2020-08-14] MEDS: CEFAZOLIN SOD 1 GM/NS 50ML 50 ML IV SCH (23:39)
[2020-08-15] VITALS (9 sets, daily range): BP systolic 127–179; BP diastolic 50–73
--- NOTE | 2020-08-15 03:21 | Operative Report ---
DATE OF PROCEDURE: 08/14/2020 SURGEON: Luiz Buitrago MD PROCEDURES PERFORMED: 1. Contralateral 3rd order angiography of the right lower extremity with runoff. 2. Drug-eluting balloon BRASSWIND INSTRUMENT REPAIRER followed by stenting of the right SFA. 3. Drug-eluting balloon angioplasty of the right popliteal artery. 4. Drug-eluting balloon angioplasty of the proximal right anterior tibial artery. 5. CARPET LOOM FIXER revascularization of the mid to distal right anterior tibial artery with reconnecting flow to the kaibab dorsalis pedis with runoff going all the way to the foot stump. OPERATORS: INDICATION OF PROCEDURE: A 70-year-old gentleman with history of hypertension, type 2 diabetes, hypercholesteremia, kidney disease on dialysis, now came in with PAD and gangrene of the right great toe. He had a transmetatarsal amputation due to gangrenous foot changes. Circulation is noted to be very poor. Multidisciplinary discussion with vascular surgery and us took place and deemed better candidate for attempted limb salvage percutaneous revascularization. DESCRIPTION OF PROCEDURE: For risks, benefits, pros and cons of today's procedure were explained and the patient agreed to proceed. The patient was brought to the cardiac catheterization laboratory, where the left groin was prepped and draped in usual sterile fashion. A 1% lidocaine solution was used to numb the groin region, access the left femoral artery was obtained and we initially placed a 6-[place] African short femoral sheath. Next, we took Omniflush diagnostic catheter and crossed over to the contralateral right common femoral artery and we switched that for 6-South African destination sheath and placed it into the right common femoral artery. Taking a 0.[address] the way to the distal right popliteal artery. Did order angiography or looking at the runoff of the right foot was performed. DICTATION ENDS HERE. MD BRIAN Dey/ESME /[id number]
[2020-08-15 05:06] LABS: BASOPHILS % 0.2 % (0.0-1.0); EOSINOPHILS # (AUTO) 0.2 (0.0-0.4); EOSINOPHILS % 1.2 % (0.0-6.0); HEMATOCRIT 25.9 % (38.2-49.6); HEMOGLOBIN 8.1 g/dL (14.0-18.0); LYMPHOCYTES # (AUTO) 1.5 (1.0-3.2); LYMPHOCYTES % 12.1 % (18.0-39.1); MEAN CORPUSCULAR HEMOGLOBIN 25.4 pg (28-32); MEAN CORPUSCULAR HGB CONC 31.3 g/dL (31-35); MEAN CORPUSCULAR VOLUME 81.2 fL (81-99); MONOCYTES # (AUTO) 0.4 (0.2-0.8); MONOCYTES % 3.5 % (4.4-11.3); NEUTROPHILS # (AUTO) 10.1 (2.1-6.9); NEUTROPHILS % 82.5 % (38.7-80.0); RED BLOOD COUNT 3.19 x10e6/uL (4.3-5.7); RED CELL DISTRIBUTION WIDTH 13.7 % (11.7-14.4)
[2020-08-15 05:08] LABS: PLATELET COUNT 27 x10e3/uL (140-360)
--- NOTE | 2020-08-15 05:15 | NUR ---
Left message for Dr Mayne PUMP AND BLOWER OPERATOR stereo equipment salesperson regarding lab alert PLT 27, awaiting call back.
[2020-08-15 05:24] LABS: ALBUMIN 2.8 g/dL (3.5-5.0); ALBUMIN/GLOBULIN RATIO 0.9 (0.8-2.0); ANION GAP 14.6 mmol/L (8-16); CALCIUM 7.1 mg/dL (8.4-10.2); CREATININE, SERUM 3.26 mg/dL (0.72-1.25); POTASSIUM 3.6 mmol/L (3.5-5.1)
--- NOTE | 2020-08-15 06:04 | NUR ---
Spoke with Levi CHIU regarding low platelets, new order to consult Dr Salomon for thrombocytopenia.
--- NOTE | 2020-08-15 06:09 | NUR ---
Left message for Dr Salomon regarding new consult: awaiting call back.
--- NOTE | 2020-08-15 07:15 | NUR ---
Bedside report and walking rounds completed with oncoming nurse. Patient in bed with call light within reach. Bed locked and in lowest position. Instructed to call for assistance as needed. Will continue to monitor.
[2020-08-15] MEDS: INSULIN REGULAR, HUMAN 100 UNIT/1 ML 3ML VIAL SQ SCH ×4 (07:30→21:00)
[2020-08-15] MEDS ORDERED: CEFAZOLIN SOD 1 GM VIAL IV SCH (09:00)
[2020-08-15] MEDS ORDERED: CLOPIDOGREL BISULFATE 75 MG TAB PO SCH (09:00)
--- NOTE | 2020-08-15 09:17 | Progress Note ---
DATE: 08/14/2020 Nephrology Progress Note SUBJECTIVE: The patient is doing well today with no complaints. He did receive dialysis today. Urine output if documented appropriately was 2.5 L. LABORATORY DATA: His white count was 10.9, hemoglobin 8.5, hematocrit 27, and platelets of 66. Chemistries reviewed and stable. PHYSICAL EXAMINATION: VITAL SIGNS: Afebrile, normotensive, respiratory rate is good. GENERAL: Not in acute distress. Alert and oriented x3. PULMONARY: Clear to auscultation bilaterally. No wheezing, rales, or rhonchi. No crackles appreciated. CARDIOVASCULAR: Positive S1, S2. No gallop appreciated. ABDOMEN: Soft, nondistended, tender to palpation. Bowel sounds present. MUSCULOSKELETAL: Strength 5/5 throughout. No evidence of any muscle deficits on examination was appreciated. NEUROLOGICAL: Cranial nerves II through XII are grossly intact. No evidence of any neurological deficits on exam. SKIN: Intact. Warm to touch. Good cap refill. PSYCHIATRIC: Normal affect and mood. EXTREMITIES: No edema. Good range of motion throughout. IMPRESSION: 1. Acute kidney injury on chronic kidney disease, stage 4 secondary to underlying chronic disease from diabetes, hypertension, and also possibly underlying acute tubular necrosis from hypotension. 2. Diabetic foot ulcer status post debridement, now status post lower extremity angiogram with PCI with intervention. 3. Type 2 diabetes. 4. Hypertension. 5. Anemia of chronic disease. 6. Secondary hyperparathyroidism. 7. Oliguria. PLAN: At this time, his urine output seems to be pretty stable. His electrolytes are stable. I will determine if he needs long-term HD over the next 1 to 2 days baseline urine output and labs. He did receive hemodialysis today. Continue same plan of care. Discussed with nursing staff and Case Management. MD CARMEN Simpson/ESME /[id number]
[2020-08-15] MEDS: CLOPIDOGREL BISULFATE 75 MG TAB PO SCH (10:15)
[2020-08-15] MEDS: TAMSULOSIN HCL 0.4 MG CAP PO SCH (10:15)
[2020-08-15] MEDS: ASPIRIN 81 MG ENTERIC COATED PO SCH (10:15)
[2020-08-15] MEDS: SODIUM BICARBONATE 650 MG TAB PO SCH ×2 (10:15→17:53)
[2020-08-15] MEDS: FAMOTIDINE 20 MG TAB PO SCH ×2 (10:15→17:53)
--- NOTE | 2020-08-15 11:24 | NUR ---
he patient is doing well today with no complaints. He did receive dialysis today. Urine output if documented appropriately was 2.5 L. LABORATORY DATA: His white count was 10.9, hemoglobin 8.5, hematocrit 27, and platelets of 66. Chemistries reviewed and stable. PHYSICAL EXAMINATION: VITAL SIGNS: Afebrile, normotensive, respiratory rate is good. GENERAL: Not in acute distress. Alert and oriented x3. PULMONARY: Clear to auscultation bilaterally. No wheezing, rales, or rhonchi. No crackles appreciated. CARDIOVASCULAR: Positive S1, S2. No gallop appreciated. ABDOMEN: Soft, nondistended, tender to palpation. Bowel sounds present. MUSCULOSKELETAL: Strength 5/5 throughout. No evidence of any muscle deficits on examination was appreciated. NEUROLOGICAL: Cranial nerves II through XII are grossly intact. No evidence of any neurological deficits on exam. SKIN: Intact. Warm to touch. Good cap refill. PSYCHIATRIC: Normal affect and mood. EXTREMITIES: No edema. Good range of motion throughout. IMPRESSION:
[2020-08-15] MEDS: CEFAZOLIN SOD 1 GM/NS 50ML 50 ML IV SCH (13:00)
[2020-08-15] MEDS ORDERED: CHOLESTYRAMINE 4 GM PACKET PO PRN (13:00)
--- NOTE | 2020-08-15 13:19 | Progress Note ---
DATE: SUBJECTIVE: Mr. Quiñones is doing well. There is no new complaint. REVIEW OF SYSTEMS: HEENT: Negative. PULMONARY: Negative. CARDIAC: Negative. PHYSICAL EXAMINATION: GENERAL: He is currently alert and oriented. VITAL SIGNS: Stable, currently afebrile. HEENT: He is not icteric. NECK: Supple. CHEST: Clear. HEART: S1 and S2. ABDOMEN: Soft. Bowel sounds present. EXTREMITIES: No edema. SKIN: No rash. IMPRESSION: The patient is status post transmetatarsal amputation. From Infectious Disease point of view, the patient could be discharged home with oral doxycycline and Cipro. Doxycycline 100 mg p.o. b.i.d. and Cipro 250 mg p.o. b.i.d. for 14 days. Wound care is ordered. MD ELEANOR Oh/MODL /[id number]
--- NOTE | 2020-08-15 14:10 | NUR ---
Received order for LTAC eval. Spoke to pt at bedside and discussed LTAC. Gave choices for facilities close to this area. Pt states he has heard of [facility] and would like to go there. Choice letter signed for [facility]. Copy of choice letter given to pt. Referral faxed to [facility] at [phone]. Monica with [facility] was notified of referral.
[2020-08-15] MEDS: ATORVASTATIN 40 MG TAB PO SCH (21:42)
[2020-08-16] VITALS (8 sets, daily range): BP systolic 109–155; BP diastolic 53–78
--- NOTE | 2020-08-16 01:16 | Progress Note ---
DATE: 08/15/2020 REASON FOR PROGRESS NOTE: Gangrene of right lower extremity, status post right SFA angioplasty, end-stage renal failure, status post transmetatarsal amputation; requested by Dr. Isaura Arredondo. SUBJECTIVE: Clinically stable. Tolerating hemodialysis. Right lower extremity dressing clean and dry. REVIEW OF SYSTEMS: No chest pain, shortness of breath, or fever. Neurologic status is stable and unchanged. Postoperative pain well controlled. PHYSICAL EXAMINATION: VITAL SIGNS: Blood pressure 130/70, pulse 75 and regular, respirations 16 and unlabored. NECK: Supple and nontender. No JVD. CARDIAC: Regular rate and rhythm. Normal S1 and S2. No S3 or S4. LUNGS: Clear to auscultation and percussion bilaterally. ABDOMEN: Globoid. Benign. EXTREMITIES: Right lower extremity dressing in place. Extremities are warm and well perfused. LABORATORY DATA: WBC 12.27, hemoglobin 8.1, hematocrit 25.9, and platelet count 27,000. Sodium 139, potassium 3.6, BUN 29, creatinine 3.26. IMAGING: Vein mapping result is pending. IMPRESSION: End-stage renal failure. Right lower extremity well perfused and stable. May need permanent dialysis access. We will check vein mapping. MD GARCIA Gallagher/ESME /[id number]
[2020-08-16 06:13] LABS: BASOPHILS % 0.4 % (0.0-1.0); EOSINOPHILS # (AUTO) 0.2 (0.0-0.4); EOSINOPHILS % 1.5 % (0.0-6.0); HEMOGLOBIN 7.4 g/dL (14.0-18.0); LYMPHOCYTES # (AUTO) 1.7 (1.0-3.2); LYMPHOCYTES % 16.3 % (18.0-39.1); MEAN CORPUSCULAR HEMOGLOBIN 25.3 pg (28-32); MEAN CORPUSCULAR HGB CONC 29.6 g/dL (31-35); MEAN CORPUSCULAR VOLUME 85.3 fL (81-99); MONOCYTES # (AUTO) 0.8 (0.2-0.8); MONOCYTES % 8.1 % (4.4-11.3); NEUTROPHILS # (AUTO) 7.5 (2.1-6.9); NEUTROPHILS % 73.1 % (38.7-80.0); RED BLOOD COUNT 2.93 x10e6/uL (4.3-5.7); RED CELL DISTRIBUTION WIDTH 14.3 % (11.7-14.4)
[2020-08-16 06:35] LABS: ALBUMIN 2.7 g/dL (3.5-5.0); ALBUMIN/GLOBULIN RATIO 0.9 (0.8-2.0); ANION GAP 12.9 mmol/L (8-16); CREATININE, SERUM 4.21 mg/dL (0.72-1.25); PHOSPHORUS 5.2 MG/DL (2.3-4.7); POTASSIUM 3.9 mmol/L (3.5-5.1)
[2020-08-16 06:57] LABS: HELMET CELLS SLIGHT; OVALOCYTES FEW; TEAR DROP CELLS FEW
[2020-08-16 06:58] LABS: HYPOCHROMASIA SLIGHT
[2020-08-16 06:59] LABS: SCHISTOCYTES RARE
[2020-08-16 07:00] LABS: PLATELET ESTIMATE MARKEDLY DECREASED; PLATELET MORPHOLOGY COMMENT NORMAL; RBC MORPHOLOGY COMMENT ABNORMAL
--- NOTE | 2020-08-16 07:00 | NUR ---
RECEIVED BEDSIDE SHIFT REPORT FROM OFF GOING NIGHT NURSE. PATIENT IN STABLE CONDITION , NO S/S OF DISTRESS NOTED. PATIENT ASLEEP AT THIS TIME EASILY AROUSED. RESPIRATIONS EVEN AND NONLABORED. NO PAIN VOICED. JARA IN PLACE AND PATENT DRAINING DARK [place] COLOR URINE INTO THE DRAINAGE BAG. IV SITE ASYMPTOMATIC AND PATENT, TRANSPARENT DRESSING C/D/I. LEFT BKA NOTED. CASEY WRAP TO THE RIGHT LOWER EXTREMITY C/D/I. BED IN LOWEST POSITION AND LOCKED, SIDE RAILS X 2. CALL LIGHT WITHIN REACH.
[2020-08-16 07:04] LABS: PLATELET COUNT 22 x10e3/uL (140-360)
[2020-08-16] MEDS: FAMOTIDINE 20 MG TAB PO SCH ×2 (07:30→17:02)
[2020-08-16] MEDS: INSULIN REGULAR, HUMAN 100 UNIT/1 ML 3ML VIAL SQ SCH ×4 (07:30→21:00)
--- NOTE | 2020-08-16 08:12 | NUR ---
NOTIFIED GUSTAVO SANCHEZ NP ABOUT THE PATIENTS PLT. COUNT OF 22, SHE STATED TO LET KNOW. DR. GARVEY NOTIFIED. NO NEW ORDER RECEIVED.
[2020-08-16] MEDS: TAMSULOSIN HCL 0.4 MG CAP PO SCH (09:00)
[2020-08-16] MEDS: ASPIRIN 81 MG ENTERIC COATED PO SCH (09:00)
[2020-08-16] MEDS: SODIUM BICARBONATE 650 MG TAB PO SCH ×2 (09:00→17:02)
[2020-08-16] MEDS: CLOPIDOGREL BISULFATE 75 MG TAB PO SCH (09:00)
--- NOTE | 2020-08-16 09:05 | NUR ---
Placido Anderson with [facility], still pending insurance auth.
[2020-08-16 09:57] LABS: INR 1.14; PARTIAL THROMBOPLASTIN TIME 36.5 seconds (23.8-35.5); PROTHROMBIN TIME 15.2 seconds (11.9-14.5)
--- NOTE | 2020-08-16 09:58 | Progress Note ---
DATE: 08/15/2020 Nephrology Progress Note SUBJECTIVE: The patient was seen and evaluated in the early afternoon on 08/15/2020. Discussed plan of care with nursing staff. This is a late entry note. The patient is doing well. Urine output noted in the [facility] seems to be improving. He denies any complaints at this time. LABORATORY DATA: CBC shows hemoglobin 8.1 and platelets of 27. Chemistry shows creatinine 3.26 and the rest of electrolytes are stable. MICROBIOLOGY: Noted. IMAGING STUDIES: Nothing new. PHYSICAL EXAMINATION: VITAL SIGNS: Afebrile, normotensive. Respiratory rate is good. Urine output documented to be approximately 600 mL of urine. GENERAL: No acute distress. Alert and oriented x3. Cooperative on examination. HEENT: Head is normocephalic and atraumatic. Eyes; pupils are equal, round and reactive to light bilaterally. Extraocular movements intact bilaterally. NECK: Supple. Good range of motion. Throat; no evidence of erythema or exudates in the posterior pharynx. PULMONARY: Clear to auscultation bilaterally. No wheezing, rales, or rhonchi. No crackles appreciated. CARDIOVASCULAR: Positive S1 and S2. No murmurs, rubs, or gallops appreciated. ABDOMEN: Soft, nondistended, nontender to palpation. Bowel sounds present. MUSCULOSKELETAL: Strength 5/5 throughout. No evidence of any muscle deficits on examination. SKIN: Intact, warm to touch. Good cap refill. IMPRESSION: 1. Acute kidney injury on chronic kidney disease, stage 4 secondary to underlying diabetic nephropathy, hypertension, and possibly underlying acute tubular necrosis from hypotension. 2. Diabetic foot ulcer status post debridement, status post lower extremity angiogram with PCI and intervention. 3. Type 2 diabetes. 4. Hypertension. 5. Anemia of chronic disease. 6. Secondary hyperparathyroidism. 7. Oliguria. PLAN: From a renal standpoint, the patient seems to be making some headway with good urine output but the electrolytes need to be monitored very closely before I make my final decision about him being permanently on dialysis. He has baseline chronic kidney disease, stage 4 but with these current insults, it may push him into end-stage renal disease and permanent hemodialysis. I discussed this with him at several occasions as well. He will receive hemodialysis as per his schedule for tomorrow pending the labs and the urine output. Continue to monitor him very closely. Plan of care discussed with case management and primary team. MD CARMEN Simpson/ESME /[id number]
[2020-08-16] MEDS: METOPROLOL TARTRATE 25 MG TAB PO SCH ×2 (10:15→17:02)
--- NOTE | 2020-08-16 12:00 | NUR ---
PATIENT COMPLETED DIALYSIS 2 LITTERS WAS PULLED OFF. VITAL SIGNS STABLE. NO PAIN VOICED. PATIENT EATING LUNCH AT THIS TIME.
[2020-08-16] MEDS ORDERED: SODIUM CHLORIDE 0.9% 250ML 250 ML ONE (12:16)
[2020-08-16] MEDS: IRON SUCROSE 100 MG in SODIUM CHLORIDE 0.9% 100 ML 100 ML IV SCH (12:17)
--- NOTE | 2020-08-16 12:18 | Progress Note ---
DATE: 08/16/2020 SUBJECTIVE: The patient is seen at bedside, no distress, feeling good. Decreased discomfort to the right lower extremity. OBJECTIVE: VITAL SIGNS: Afebrile. Vital signs stable. EXTREMITIES: Incision and flap site looks okay. No evidence of surgical dehiscence. Some drainage, but negative foul smell. ASSESSMENT: Status post right foot surgery, multiple procedures. PLAN: Dressing was changed. The patient was put back in the posterior splint. We will continue IV cefazolin. Continue offloading. Upon discharge, the patient to follow up in the office. SERGIO Houston/ESME /[id number]
--- NOTE | 2020-08-16 12:43 | Consultation ---
DATE OF CONSULTATION: HISTORY OF PRESENT ILLNESS: The patient is a 70-year-old gentleman with the past medical history include hypertension, diabetes, chronic kidney disease on hemodialysis, hyperlipidemia, peripheral arterial disorder, required left BKA in past. The patient was admitted with blackness of his right great toe, second toe, then they were worsening. The patient is noted to be septic with elevated white blood cell, worsening anemia, worsening kidney functions at admission. Initial workup included MRI showed osteomyelitis. There was no palpable circulation. The patient was followed with Surgery and Cardiology. He was diagnosed severe peripheral artery disease with gangrene, had right transmetatarsal amputation. The patient on antibiotics include cefepime and Zyvox and wound care. Hospital course was complicated with worsening thrombocytopenia. The patient's admission platelet counts were normal. During hospital stay, it dropped, and this morning they were in their 20s. Repeated platelet count shows the same number. Coagulation profile was done last week, reported normal reports. Recent chemistry shows normal AST and ALT. The remaining workup shows persistent anemia with low MCV, slightly elevated white blood cells. Peripheral smear shows thrombocytopenia with no clumping with no other abnormal cells. No history of any obvious bleeding. Hemoglobin low, but just in the same range. No bruising or ecchymosis. PAST MEDICAL HISTORY: Hypertension, BPH, chronic kidney disease, hyperlipidemia, diabetes, peripheral artery disease with left BKA. PAST SURGICAL HISTORY: Left BKA. FAMILY HISTORY: Positive for diabetes. SOCIAL HISTORY: No smoker. No alcohol. ALLERGIES: NKDA. MEDICATIONS: Reviewed. REVIEW OF SYSTEMS: As per HPI, the patient appears comfortable. Currently receiving hemodialysis. PHYSICAL EXAMINATION: GENERAL: Alert, awake, communicative, well-nourished, not apparent distress. HEENT: Normocephalic and atraumatic. Pupils are equal, round, reactive to light. NECK: No elevation. No jugular venous pressure. CARDIOVASCULAR: Regular rate and rhythm. LUNGS: Little decreased breath sounds on the bases, otherwise normal to auscultation. ABDOMEN: Soft, nontender. EXTREMITIES: Positive postsurgical changes. SHIPPING AND RECEIVING ASSISTANT: Intact. LABS/IMAGING: Reviewed as per the HPI. ASSESSMENT AND PLAN: 1. The patient with history of multiple medical conditions, admitted with gangrene of the right lower extremity status post right SFA angioplasty and end-stage renal failure, status post transmetatarsal amputation, now worsening thrombocytopenia. 2. Worsening thrombocytopenia. 3. New onset. 4. No recent coagulation profile. 5. Liver functions normal. 6. Possibility of medication. 7. We will communicate with Dr. Arredondo, ID specialist about antibiotic management. Other possibility of DIC, but white cell counts are improving. I would check complete coagulation profile. Currently, no evidence of any bleeding, the patient counts above 20. No risk of spontaneous bleeding and we will monitor platelet count. 8. The patient currently on aspirin and Plavix. We will continue both with positive benefit and risks. 9. Further recommendation as far workup. 10. Avoid remaining thrombocytopenic medication. 11. We will follow. 12. Anemia. 13. Peripheral smear did not show any abnormal cells. 14. MCV is low normal. 15. Recommendation complete anemia workup. 16. Continue erythropoietin treatment. 17. Further recommendation treatment as per workup. 18. Considering the low MCV, we will start the patient on iron infusion. 19. We will follow. 20. Peripheral arterial disease. 21. Status post procedure. 22. Following vascular surgery. 23. The patient will be continued on antiplatelet medication. 24. We will continue remaining care. We will follow. MD KIP Cherry/ESME /[id number]
[2020-08-16] MEDS: CEFAZOLIN SOD 1 GM/NS 50ML 50 ML IV SCH (13:20)
--- NOTE | 2020-08-16 13:55 | NUR ---
Infectious diseases note patient seen and examined chart reviewed Patient is doing well overall there is no new complaints he patient was seen and evaluated in the early afternoon on 08/15/2020. Discussed plan of care with nursing staff. This is a late entry note. The patient is doing well. Urine output noted in the [facility] seems to be improving. He denies any complaints at this time. LABORATORY DATA: CBC shows hemoglobin 8.1 and platelets of 27. Chemistry shows creatinine 3.26 and the rest of electrolytes are stable. MICROBIOLOGY: Noted. IMAGING STUDIES: Nothing new. PHYSICAL EXAMINATION: VITAL SIGNS: Afebrile, normotensive. Respiratory rate is good. Urine output documented to be approximately 600 mL of urine. GENERAL: No acute distress. Alert and oriented x3. Cooperative on examination. HEENT: Head is normocephalic and atraumatic. Eyes; pupils are equal, round and reactive to light bilaterally. Extraocular movements intact bilaterally. NECK: Supple. Good range of motion. Throat; no evidence of erythema or exudates in the posterior pharynx. PULMONARY: Clear to auscultation bilaterally. No wheezing, rales, or rhonchi. No crackles appreciated. CARDIOVASCULAR: Positive S1 and S2. No murmurs, rubs, or gallops appreciated. ABDOMEN: Soft, nondistended, nontender to palpation. Bowel sounds present. MUSCULOSKELETAL: Strength 5/5 throughout. No evidence of any muscle deficits on examination. SKIN: Intact, warm to touch. Good cap refill. IMPRESSION: 1. Acute kidney injury on chronic kidney disease, stage 4 secondary to underlying diabetic nephropathy, hypertension, and possibly underlying acute tubular necrosis from hypotension. 2. Diabetic foot ulcer status post debridement, status post lower extremity angiogram with PCI and intervention. 3. Type 2 diabetes. 4. Hypertension. 5. Anemia of chronic disease. 6. Secondary hyperparathyroidism. 7. Oliguria. continued antibiotic Change to oral but
[2020-08-16] MEDS ORDERED: EPOETIN ALFA-EPBX 10,000 UNIT/ML VIAL SC SCH (14:00)
[2020-08-16 15:37] LABS: BASOPHILS % 0.2 % (0.0-1.0); EOSINOPHILS # (AUTO) 0.1 (0.0-0.4); EOSINOPHILS % 1.1 % (0.0-6.0); HEMATOCRIT 23.2 % (38.2-49.6); HEMOGLOBIN 7.1 g/dL (14.0-18.0); LYMPHOCYTES # (AUTO) 1.1 (1.0-3.2); LYMPHOCYTES % 10.9 % (18.0-39.1); MEAN CORPUSCULAR HEMOGLOBIN 25.5 pg (28-32); MEAN CORPUSCULAR HGB CONC 30.6 g/dL (31-35); MEAN CORPUSCULAR VOLUME 83.5 fL (81-99); MONOCYTES # (AUTO) 0.8 (0.2-0.8); MONOCYTES % 7.9 % (4.4-11.3); NEUTROPHILS # (AUTO) 8.1 (2.1-6.9); NEUTROPHILS % 79.5 % (38.7-80.0); RED BLOOD COUNT 2.78 x10e6/uL (4.3-5.7); RED CELL DISTRIBUTION WIDTH 13.8 % (11.7-14.4)
[2020-08-16 15:39] LABS: PLATELET COUNT 15 x10e3/uL (140-360)
--- NOTE | 2020-08-16 16:13 | NUR ---
PAGED DR. Hemant GARVEY ABOUT THE PATIENTS PLT. COUNT OF 15 AWAITING A RETURN CALL.
--- NOTE | 2020-08-16 19:19 | NUR ---
COMPLETED BEDSIDE SHIFT REPORT AND ROUNDING WITH ONCOMING NIGHT NURSE. PATIENT IN STABLE CONDITION , NO S/S OF DISTRESS NOTED. PATIENT ASLEEP AT THIS TIME EASILY AROUSED. RESPIRATIONS EVEN AND NONLABORED. NO PAIN VOICED. JARA IN PLACE AND PATENT DRAINING PALE COLOR URINE INTO THE DRAINAGE BAG. IV SITE ASYMPTOMATIC AND PATENT, TRANSPARENT DRESSING C/D/I. LEFT BKA NOTED. CASEY WRAP TO THE RIGHT LOWER EXTREMITY C/D/I. BED IN LOWEST POSITION AND LOCKED, SIDE RAILS X 2. CALL LIGHT WITHIN REACH.
[2020-08-16] MEDS: ATORVASTATIN 40 MG TAB PO SCH (21:00)
[2020-08-17] VITALS (8 sets, daily range): BP systolic 135–163; BP diastolic 62–71
[2020-08-17 06:58] LABS: BASOPHILS % 0.3 % (0.0-1.0); EOSINOPHILS # (AUTO) 0.1 (0.0-0.4); EOSINOPHILS % 1.3 % (0.0-6.0); HEMATOCRIT 25.7 % (38.2-49.6); HEMOGLOBIN 7.8 g/dL (14.0-18.0); LYMPHOCYTES # (AUTO) 1.5 (1.0-3.2); LYMPHOCYTES % 14.8 % (18.0-39.1); MEAN CORPUSCULAR HEMOGLOBIN 25.9 pg (28-32); MEAN CORPUSCULAR HGB CONC 30.4 g/dL (31-35); MEAN CORPUSCULAR VOLUME 85.4 fL (81-99); MONOCYTES # (AUTO) 1.2 (0.2-0.8); MONOCYTES % 12.2 % (4.4-11.3); NEUTROPHILS # (AUTO) 7.1 (2.1-6.9); NEUTROPHILS % 70.6 % (38.7-80.0); PLATELET COUNT 107 x10e3/uL (140-360); RED BLOOD COUNT 3.01 x10e6/uL (4.3-5.7); RED CELL DISTRIBUTION WIDTH 14.1 % (11.7-14.4)
--- NOTE | 2020-08-17 07:00 | NUR ---
RECEIVED BEDSIDE SHIFT REPORT FROM OFF GOING NIGHT NURSE. PATIENT IN STABLE CONDITION , NO S/S OF DISTRESS NOTED. PATIENT ASLEEP AT THIS TIME EASILY AROUSED. RESPIRATIONS EVEN AND NONLABORED. NO PAIN VOICED. JARA IN PLACE AND PATENT DRAINING PALE COLOR URINE INTO THE DRAINAGE BAG. IV SITE ASYMPTOMATIC AND PATENT, TRANSPARENT DRESSING C/D/I. LEFT BKA NOTED. CASEY WRAP TO THE RIGHT LOWER EXTREMITY C/D/I. BED IN LOWEST POSITION AND LOCKED, SIDE RAILS X 2. CALL LIGHT WITHIN REACH.
[2020-08-17] MEDS: INSULIN REGULAR, HUMAN 100 UNIT/1 ML 3ML VIAL SQ SCH ×4 (07:30→20:57)
[2020-08-17] MEDS: FAMOTIDINE 20 MG TAB PO SCH ×2 (07:30→16:44)
[2020-08-17 07:32] LABS: ALBUMIN 3.2 g/dL (3.5-5.0); ALBUMIN/GLOBULIN RATIO 1.1 (0.8-2.0); ANION GAP 13.9 mmol/L (8-16); CALCIUM 7.1 mg/dL (8.4-10.2); CREATININE, SERUM 3.53 mg/dL (0.72-1.25); POTASSIUM 3.9 mmol/L (3.5-5.1)
[2020-08-17] MEDS ORDERED: SODIUM CHLORIDE 0.9% 250ML 250 ML ONE (09:12)
[2020-08-17] MEDS: ASPIRIN 81 MG ENTERIC COATED PO SCH (09:27)
[2020-08-17] MEDS: TAMSULOSIN HCL 0.4 MG CAP PO SCH (09:27)
[2020-08-17] MEDS: CLOPIDOGREL BISULFATE 75 MG TAB PO SCH (09:28)
[2020-08-17] MEDS: SODIUM BICARBONATE 650 MG TAB PO SCH ×2 (09:30→16:45)
[2020-08-17] MEDS: METOPROLOL TARTRATE 25 MG TAB PO SCH ×2 (09:32→16:45)
--- NOTE | 2020-08-17 10:23 | Progress Note ---
DATE: SUBJECTIVE: The patient is seen and examined today. The patient appears comfortable. Clinical condition stable. OBJECTIVE: GENERAL: Alert, awake, and communicative. HEENT: Normocephalic and atraumatic. Sclerae pink. Conjunctiva clear. NECK: Supple. CHEST: Decreased breath sounds on bases. ABDOMEN: Soft. EXTREMITIES: BKA. LABS/IMAGING: Reviewed. ASSESSMENT/PLAN: The patient with history of multiple medical conditions, admitted with gangrene of the right lower extremity, status post right SFA angioplasty, and had a history of end-stage renal failure, currently on hemodialysis. The patient also has transmetatarsal amputation. I am currently following for thrombocytopenia. Thrombocytopenia was multifactorial that include medication. The patient required platelet transfusion. Current platelet count has improved. RECOMMENDATIONS: 1. Avoid thrombocytopenic medication. 2. Try to change antibiotics to get better result. 3. Monitor CBC. 4. Anemia. 5. Workup showed iron deficiency anemia of chronic disease. 6. Currently on erythropoietin treatment and iron infusion. 7. At this point, the patient is cleared to go for vascular intervention. 8. We will monitor CBC. 9. We will follow. MD KIP Cherry/ESME /[id number]
[2020-08-17] MEDS: IRON SUCROSE 100 MG in SODIUM CHLORIDE 0.9% 100 ML 100 ML IV SCH (10:50)
--- NOTE | 2020-08-17 10:55 | NUR ---
Spoke to pt at bedside regarding outpatient HD. Pt states his son in law goes to dialysis and would like to go to same place and prefers same day/time, if possible. Asked that CM call his daughter Madai to find out HD information. CM called and spoke with Madai. Was informed that her goes to [facility] at 0545. CM returned to pt's bedside and informed him of information. [facility] Copy of [facility] letter placed in transition of care folder. Signed copy placed in chart.
[2020-08-17] MEDS ORDERED: CHOLESTYRAMINE 4 GM PACKET PO PRN (12:00)
--- NOTE | 2020-08-17 12:20 | NUR ---
HD referral faxed to [facility] at [phone].
[2020-08-17] MEDS: CEFAZOLIN SOD 1 GM/NS 50ML 50 ML IV SCH (13:00)
--- NOTE | 2020-08-17 13:36 | NUR ---
WOUND CARE CONSULT 70 YO MALE HX OF CELLULITIS RT FOOT GANGRENE FARZANEH 12 0N STRICT PUP STATUS AND INTERVENTIONS LABS: WBC-10.11 HGB- 7.8 GLUCOSE-PEND SKIN ASSESSMENT COMPLETE PATIENT PRESENTS WITH DENUDED SACRO GLUTEAL AREA R/T MOISTURE IRRITATION RECOMMENDATIONS: NURSING TO CONTINUE TO MONITOR PATIENT AND KEEP SKIN CLEAN AND FREE FROM LOOSE STOOL OR IRRITATING MOISTURE AND CONTINUE TO FOLLOW MODERATE PUP INTERVENTIONS NURSING TO CONTINUE TO GET PATIENT OUT OF BED FOR MEALS AND MUCH TOLERATED NURSING TO CLEAN DENUDED SACRO GLUTEAL AREA WITH NONABRASIVE SOAP DAILY AND APPLY REMEDY BARRIER CREAM AND COVER WITH ALLEVYN FOAM DRESSING Addendum: 08/17/20 at 1340 by Chi Villareal RN Amended: Links added.
--- NOTE | 2020-08-17 16:20 | NUR ---
Received LTAC denial from insurance. P2P being arranged for tomorrow.
--- NOTE | 2020-08-17 17:22 | Progress Note ---
DATE: 08/13/2020 Nephrology Progress Note SUBJECTIVE: The patient is doing well today with no complaints. I had talked with him about having a long-term HD treatment which he is agreed to. He is having very minimal urine output. His chemistries show no evidence of any renal recovery, especially his urine output has been very dismal. OBJECTIVE: VITAL SIGNS: Afebrile, normotensive, respiratory rate is good. GENERAL: No acute distress. Alert and oriented x3. Cooperative on examination. PULMONARY: Clear to auscultation bilaterally. No wheezing, rales, or rhonchi. No crackles appreciated. CARDIOVASCULAR: Positive S1, S2. No murmurs or gallops. ABDOMEN: Soft, nondistended, nontender palpation. Bowel sounds present. MUSCULOSKELETAL: Strength is 5/5 throughout. No evidence of any muscle deficits on examination. SKIN: Intact. Warm to touch. Good cap refill. PSYCHIATRIC: Normal affect and mood. EXTREMITIES: No edema. Good range of motion throughout. LABORATORY DATA: Labs reviewed. CBC shows low platelets of 15, hemoglobin 7.1. His chemistry shows a pertinent positives, creatinine is 4.2, BUN is 37, and potassium is 3.9. IMPRESSION: 1. Acute kidney injury on chronic kidney disease, stage 4, now likely to be end-stage renal disease, requiring long-term dialysis secondary to diabetic nephropathy, hypertension, underlying acute tubular necrosis from hypotension as well as contrast exposure. 2. Diabetic foot ulcer, status post debridement, status post lower extremity angiogram with percutaneous coronary intervention and intervention. 3. Type 2 diabetes. 4. Hypertension. 5. Anemia of chronic disease. 6. Secondary hyperparathyroidism. 7. Oliguria. PLAN: At this time, the patient is doing very well. He has agreed to HD long-term. I will reach out to the vascular surgeon by inserting a tunneled HD catheter. I already reached down to Case Management to arrange for an outpatient HD unit. He did receive dialysis today. He will be scheduled for dialysis on Friday as per schedule. We will monitor urine output and electrolytes. MD CARMEN Simpson/MODL /[id number]
--- NOTE | 2020-08-17 17:37 | Progress Note ---
DATE: SUBJECTIVE: The patient is seen and evaluated. Available labs and notes reviewed. Discussed with Dr. Arredondo. REVIEW OF SYSTEMS: No nausea, vomiting, fever, chills, chest pain, or shortness of breath. Pain is controlled. PHYSICAL EXAMINATION: VITAL SIGNS: Temperature 97.7, pulse 106, respiration 20, and blood pressure 145/62. GENERAL: Alert and oriented, very pleasant. CV: S1 and S2. CHEST: Equal expansion. Clear to auscultation. No acute distress. ABDOMEN: Soft and nontender. No distention. HEENT: Moist. No pallor. No JVD. EXTREMITIES: Right lower extremity dressed with surgical dressing. 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 MEDICATIONS: Reviewed. From ID point of view, the patient is on cefazolin. LABORATORY STUDIES: White count 10.11, hemoglobin 7.8, and platelet 107. Sodium 141, potassium 3.9, and creatinine 3.53. Serology; COVID-19 negative on 07/31. MICROBIOLOGY: No new microbiology studies available. Foot culture on 08/10, showed MSSA and urine culture showed E. coli pansensitive. Blood culture was negative on 07/31. The urine culture above was from 07/31. IMAGING: No new radiology studies available. ASSESSMENT AND PLAN: 1. Diabetic foot ulcer, status post debridement. The patient is status post lower extremity angiogram and PCI and intervention, currently dressed and local care. Cultures as above. 2. Xtimc-kr-[id number] kidney disease, stage 4 with diabetic nephropathy and hypertension. Adjust antibiotics based on kidney function. 3. Diabetes type 2. 4. Hypertension. 5. Anemia of chronic disease. 6. Current continue with antibiotics as planned. Can change to oral antibiotics soon. Continue with wound care. Further management of this patient is based on daily findings on laboratory and physical examination. Dictated by Isaías Ascencio PA-C (Al) Isaura Arredondo MD /MODL /[id number]
--- NOTE | 2020-08-17 18:47 | Progress Note ---
DATE: 08/17/2020 Nephrology Progress Note SUBJECTIVE: The patient doing well today with no complaints. No overnight events. OBJECTIVE: VITAL SIGNS: Afebrile, normotensive. Respiratory rate is good. Urine output approximately 200 mL recorded. GENERAL: In no acute distress, alert and oriented x3. Cooperative on examination. HEENT: Head is normocephalic and atraumatic. PULMONARY: Clear to auscultation bilaterally. No wheezing, rales, or rhonchi appreciated. CARDIOVASCULAR: Positive S1, S2. No murmurs, rubs or gallops appreciated. ABDOMEN: Soft, nondistended, tender to palpation. Bowel sounds present. MUSCULOSKELETAL: Strength is 5/5 throughout. No evidence of muscle deficits on examination. SKIN: Intact. Warm to touch. Good cap refill. PSYCHIATRIC: Normal affect and mood. EXTREMITIES: No edema. Good range of motion throughout. LABORATORY DATA: CBC; hemoglobin 7.8, hematocrit 25, and platelets of 107. Chemistries reviewed shows creatinine of 3.5. The rest of electrolytes are stable. IMPRESSION: 1. Acute kidney injury on chronic kidney disease, stage 5 likely secondary to diabetic nephropathy, hypertension, acute tubular necrosis from an underlying contrast as well as hypotension, now likely to be end-stage renal disease, on dialysis. 2. Diabetic foot ulcer, status post debridement, status post lower extremity angiogram with percutaneous coronary intervention. 3. Type 2 diabetes. 4. Hypertension. 5. Anemia of chronic disease. 6. Secondary hyperparathyroidism. 7. Oliguria. PLAN: At this time, I have already reached out the Vascular Surgery to insert a tunneled HD catheter. I have already notified Case Management as well for an outpatient HD unit. Urine output is very dismal. Get repeat labs in the morning. Monitor his electrolytes and his urine output. He will likely get dialysis tomorrow and if his numbers are not better, I suspect that he is likely going to be end-stage renal disease at this time. Plan of care discussed with the patient, nursing staff. MD CARMEN Simpson/ESME /[id number]
--- NOTE | 2020-08-17 19:12 | NUR ---
COMPLETED BEDSIDE SHIFT REPORT AND ROUNDING WITH ONCOMING NIGHT NURSE. PATIENT IN STABLE CONDITION , NO S/S OF DISTRESS NOTED. RESPIRATIONS EVEN AND NONLABORED. NO PAIN VOICED. JARA IN PLACE AND PATENT DRAINING PALE COLOR URINE INTO THE DRAINAGE BAG. IV SITE ASYMPTOMATIC AND PATENT, TRANSPARENT DRESSING C/D/I. LEFT BKA NOTED. CASEY WRAP TO THE RIGHT LOWER EXTREMITY C/D/I. BED IN LOWEST POSITION AND LOCKED, SIDE RAILS X 2. CALL LIGHT WITHIN REACH.
[2020-08-17] MEDS: ATORVASTATIN 40 MG TAB PO SCH (20:52)
[2020-08-18] VITALS (8 sets, daily range): BP systolic 105–174; BP diastolic 51–132
--- NOTE | 2020-08-18 06:01 | NUR ---
Patient pulled out Trialysis and IV. States he just woke up and got scared. Patient is alert and oriented at this time. Phuong COAL BAGGER made aware new orders received.
[2020-08-18 06:06] LABS: BASOPHILS % 0.3 % (0.0-1.0); EOSINOPHILS # (AUTO) 0.3 (0.0-0.4); EOSINOPHILS % 3.2 % (0.0-6.0); HEMATOCRIT 24.9 % (38.2-49.6); HEMOGLOBIN 7.4 g/dL (14.0-18.0); LYMPHOCYTES # (AUTO) 1.9 (1.0-3.2); LYMPHOCYTES % 20.2 % (18.0-39.1); MEAN CORPUSCULAR HEMOGLOBIN 25.3 pg (28-32); MEAN CORPUSCULAR HGB CONC 29.7 g/dL (31-35); MONOCYTES # (AUTO) 1.6 (0.2-0.8); MONOCYTES % 16.9 % (4.4-11.3); NEUTROPHILS # (AUTO) 5.4 (2.1-6.9); PLATELET COUNT 80 x10e3/uL (140-360); RED BLOOD COUNT 2.93 x10e6/uL (4.3-5.7)
[2020-08-18 06:25] LABS: ALKALINE PHOSPHATASE 62 IU/L (40-150); ANION GAP 15.7 mmol/L (8-16); BLOOD UREA NITROGEN 34 mg/dL (7-26); BUN/CREATININE RATIO 7 (6-25); CARBON DIOXIDE 28 mmol/L (22-29); CHLORIDE 101 mmol/L (98-107); CREATININE, SERUM 4.81 mg/dL (0.72-1.25); EST GLOMERULAR FILTRATION RATE 12 ML/MIN (60-); GLUCOSE 155 mg/dL (74-118); POTASSIUM 3.7 mmol/L (3.5-5.1); SODIUM 141 mmol/L (136-145)
[2020-08-18 06:32] LABS: ALANINE AMINOTRANSFERASE < 6 IU/L (0-55)
[2020-08-18 06:33] LABS: CALCIUM 6.9 mg/dL (8.4-10.2)
[2020-08-18 07:07] LABS: INR 1.08; PROTHROMBIN TIME 14.6 seconds (11.9-14.5)
[2020-08-18 07:08] LABS: PARTIAL THROMBOPLASTIN TIME 35.8 seconds (23.8-35.5)
--- NOTE | 2020-08-18 07:12 | NUR ---
Dr. Abad made aware that patient pulled out trialysis and new orders made by Phuong RUIZ Md state to make Dr. Sanchez know.
--- NOTE | 2020-08-18 07:26 | NUR ---
Paged Dr. Sanchez thru tube cutter operator Tarun waiting for response.
--- NOTE | 2020-08-18 07:30 | NUR ---
I spoke with radiology and was advised by the nurse to allow the pt. breakfast as they will not be able to do his procedure until 1400 at the earliest. The pt. was advised of the same and agrees.
[2020-08-18] MEDS: FAMOTIDINE 20 MG TAB PO SCH ×2 (08:10→18:56)
[2020-08-18] MEDS: METOPROLOL TARTRATE 25 MG TAB PO SCH ×2 (08:11→18:58)
[2020-08-18] MEDS: ASPIRIN 81 MG ENTERIC COATED PO SCH (08:11)
[2020-08-18] MEDS: CLOPIDOGREL BISULFATE 75 MG TAB PO SCH (08:11)
[2020-08-18] MEDS: TAMSULOSIN HCL 0.4 MG CAP PO SCH (08:11)
[2020-08-18] MEDS: INSULIN REGULAR, HUMAN 100 UNIT/1 ML 3ML VIAL SQ SCH ×4 (08:11→21:00)
[2020-08-18] MEDS: SODIUM BICARBONATE 650 MG TAB PO SCH ×2 (08:32→18:58)
[2020-08-18] MEDS: IRON SUCROSE 100 MG in SODIUM CHLORIDE 0.9% 100 ML 100 ML IV SCH (11:00)
--- NOTE | 2020-08-18 12:52 | NUR ---
The pt. has no dialysis cath and therefore dialysis will be delayed until this afternoon when tunneled cath is in place.
[2020-08-18] MEDS ORDERED: MIDAZOLAM HCL 2 MG/2 ML VIAL ONE (13:56)
[2020-08-18] MEDS ORDERED: HEPARIN SOD (PORCINE) 1000 UNIT/ML SDV ONE ×2 (13:56→21:41)
[2020-08-18] MEDS ORDERED: FENTANYL CITRATE/PF 100MCG/2 ML INJ ONE (13:56)
[2020-08-18] MEDS ORDERED: LIDOCAINE HCL 1% LOCAL INJ 20 ML VIAL ONE (14:00)
[2020-08-18] MEDS ORDERED: SODIUM CHLORIDE 0.9% 250ML 250 ML ONE (14:07)
--- NOTE | 2020-08-18 14:11 | NUR ---
The pt. does not have a PICC line and he pulled out the right I J during the previous shift. He is currently out of room for a tunnelled cath insertion.
--- NOTE | 2020-08-18 14:25 | Progress Note ---
DATE: CONSULTING PHYSICIANS: 1. Dr. Александр Salomon with Hematology. 2. Dr. Nicolas Sanchez with Cardiovascular Surgery. 3. Dr. Luiz Buitrago with Cardiology. 4. Dr. Tanja Abad with Nephrology. 5. Dr. Gaurang Mendoza with Podiatry. SUBJECTIVE/EVENTS OVERNIGHT: The patient pulled out his Trialysis catheter last night accidentally, states it was itching. The patient is not confused at all. The pulling out of the Trialysis catheter was not purposeful. He has no pain. No complaints of headache, dizziness, shortness of breath, cough, phlegm, chest pain, palpitations, nausea, vomiting, or diarrhea. His last bowel movement was yesterday morning. OBJECTIVE: VITAL SIGNS: Temperature 98.2, pulse 86, blood pressure 172/65, respirations 17, and oxygen saturation 95%. GENERAL: Supine, head of bed elevated. No acute distress. LUNGS: Clear to auscultation. Respiratory pattern even and unlabored. HEENT: EOMI, MMM. NECK: Supple. No lymphadenopathy, thyromegaly, or JVD. CARDIOVASCULAR: Regular rate and rhythm. No murmur. ABDOMEN: Bowel sounds positive. Soft and nontender. Has a Horowitz catheter in place with madeline urine. EXTREMITIES: No pitting edema. Left BKA. Right lower extremity with splint/Martinez wrap. NEUROLOGICAL: GCS 15. Nonfocal. LABORATORY DATA: WBCs 9.3, hemoglobin 7.4, hematocrit 24.9, and platelets 80. PT 14.6, INR 1.08, and PTT 35.8. Sodium 141, potassium 3.7, chloride 101, CO2 28, anion gap 15.7, BUN 34, creatinine 4.81, estimated GFR 12, and glucose 155. Fingerstick blood glucose levels 172, 164. Calcium 6.9. Total bilirubin 0.3, AST 14, ALT less than 6, and alkaline phosphatase 62. Total protein 5.9 and albumin 3.0. IMAGING: No new imaging results. ASSESSMENT AND PLAN: 1. Right foot peripheral arterial disease/gangrene/OM positive Staph, status post right transmetatarsal amputation and right lower extremity angioplasty/stents. Continue IV Ancef, continue ASA/Plavix/Lipitor, wound care. 2. End-stage renal disease iatrogenic Trialysis catheter removal last night. Hemodialysis catheter replacement likely around 2 p.m. today. Tunneled hemodialysis cath versus fistula creation is pending and will likely occur on Friday per cardiovascular surgeon recommendations. Hemodialysis per Nephrology. 3. Type 2 diabetes mellitus with end-stage renal disease. Serum glucose 155. Continue sliding scale insulin. Hemoglobin A1c 9% on 08/02. 4. Thrombocytopenia. Platelets 80 (107, 15), status post two platelet transfusions. Hematology following. No bleeding noted, likely secondary to heparin and procedures. 5. Ambulatory dysfunction. Physical therapist at bedside, about to work with the patient. Placement is required. Unsafe for discharge home. 6. Anemia of chronic disease secondary to end-stage renal disease. Hemoglobin 7.4 (7.8). Monitor. Continue Venofer/epoetin, Hematology following. 7. Prophylaxis, Pepcid. 8. Disposition. LTAC denied, disposition currently unclear. Inpatient, billing code [id number], time spent 35 minutes. Dictated by Levi Adams NP Alphonso Mayen MD HWP/MODL /[id number]
--- NOTE | 2020-08-18 16:16 | NUR ---
Received dialysis chair for pt. [place] [id number] [place] [address] Start Date 08/22/2020 Time for paperwork 12:00 Chair time 12:30 Copies of schedule letter placed in chart. Pt was informed of chair and given multiple copies of letter. Letters placed in pt's transition of care folder. ARAM Sims was notified that pt has a chair.
--- NOTE | 2020-08-18 16:30 | NUR ---
The pt. returned to the unit sp placement of tunnelled cath. The dressing to the site is clean dry and intact. The v/s were done and I exited the room to get glucometer and returned and found that the pt. had taken off the dressing. He was advised of the consequences of tampering with the dressing. New dressing was applied sterilely.
--- NOTE | 2020-08-18 16:52 | Diagnostic Imaging Report ---
Tunneled dialysis catheter insertion. History: Renal failure. Modality: Sonography and fluoroscopy. Sedation: Moderate sedation was administered. 0.5 mg of Versed and 50 mcg of fentanyl IV was used for moderate sedation monitored under my direction. Total intra-service time of sedation was 30 minutes. The patient's vital signs were monitored throughout the procedure and recorded in the patient's medical record by the nurse. Administrative Personal Assistant: Jamar Galvan M.D. Delivery Coordinator: None. Approach: Right internal jugular vein Estimated blood loss: < 5 cc. Specimen: None. Fluoroscopy Time: 0.6 min. Dose (Ka,r): 7 mGy. Technique: Informed written consent was obtained. Discussion of risks, benefits, and alternatives were made with the patient. The patient expressed understanding and agreed to proceed. All elements maximal sterile barrier technique was utilized for this procedure, including utilization of sterile scrub solution for skin prep, a large sterile sheet to cover the areas of the patient that were not prepped, and hand hygiene, mask, head covering, and sterile gown for performing radiologist and scrub technologist. The skin was anesthetized with 2% lidocaine.Ultrasound evaluation showed a patent and compressible right internal jugular vein, which was punctured under direct real-time ultrasound guidance with a micropuncture needle. An ultrasound image was saved to PACS. A 0.018 inch wire was placed through the needle into the right atrium. A 4 [place]ican micropuncture sheath was placed and a 0.035 wire was advanced into the IVC. A subcutaneous tunnel was created in the right anterior chest wall by blunt dissection. A 23 cm tip to cuff 14.5 [place] Mahurkar catheter was brought through the tunnel. The vessel tract was serially dilated. A peel-away sheath was placed in the right IJ vein and the catheter was advanced through the sheath, with its distal tip terminating in the superior right atrium. The peel-away sheath was removed. The ports were flushed and aspirated easily following placement. The catheter was sutured to the skin to secure its placement. The small jugular incision site was closed using Dermabond. A resorbable purse-string suture was placed at the catheter exit site. . Vital signs were monitored throughout the procedure by a nurse, and remained stable. The patient tolerated the procedure well and left the department in the same condition. Results: Spot radiograph of the chest demonstrates the new dialysis catheter to lie in the expected position with its tip overlying the superior right atrium. Impression: Successful, uncomplicated placement of a right internal jugular tunneled dialysis catheter using sonographic and fluoroscopic guidance and conscious sedation. Catheter is ready for immediate use. Signed by: Jamar Galvan MD on 08/18/2020 4:49 PM
--- NOTE | 2020-08-18 17:05 | NUR ---
Per Monica with [facility], P2P was done. Denial upheld.
--- NOTE | 2020-08-18 17:36 | Progress Note ---
DATE: SUBJECTIVE: The patient is seen and examined today. The patient appeared comfortable, clinically doing better. No worsening event noted. OBJECTIVE: GENERAL: Alert, awake, and communicative. HEENT: Normocephalic and atraumatic. Sclerae pink. Conjunctivae clear. NECK: Supple. CHEST: Decreased breath sounds on the bases. ABDOMEN: Soft. EXTREMITIES: BKA left. IMAGING: Reviewed. ASSESSMENT AND PLAN: The patient with history of multiple medical condition. I am currently following for anemia and thrombocytopenia. Platelet count is still low, but better. No evidence of any active bleeding. No evidence of any bruising or ecchymosis. RECOMMENDATIONS: Continue close observation. Recommendation to follow CBC. The patient is scheduled for procedure on Friday. We will try to keep platelet count above 50 for procedure. We will follow. Anemia. Anemia workup shows anemia of chronic disease and iron deficiency. Continue current care. Hemoglobin better. We will follow. MD KIP Cherry/ESME /[id number]
--- NOTE | 2020-08-18 18:18 | Progress Note ---
DATE: 08/18/2020 Nephrology Progress Note SUBJECTIVE: The patient is doing well today with no complaints. He pulled his Trialysis catheter last night by accident. Today, he needs dialysis, in which we will have to have IR place the tunneled catheter. Vascular Surgery has been notified already. He agreed and was fine with no issues. PHYSICAL EXAMINATION: VITAL SIGNS: Temperature is 98.4, pulse 79, respiratory rate is 17, blood pressure 154/63, and pulse ox 96% on room air. GENERAL: Not in acute distress. Alert and oriented x3. Cooperative on examination. HEENT: Head; normocephalic, atraumatic. Eyes; pupils are equal, round, and reactive to light bilaterally. Extraocular movements intact bilaterally. PULMONARY: Clear to auscultation bilaterally. No wheezing, no rales, no rhonchi, no crackles appreciated. CARDIOVASCULAR: Positive S1 and S2. No murmurs, rubs, or gallops appreciated. ABDOMEN: Soft, nondistended, and nontender to palpation. Bowel sounds present. MUSCULOSKELETAL: Strength is 5/5 throughout. No evidence of any muscle deficits on examination. LABORATORY FINDINGS: Show CBC stable. Hemoglobin 7.4. Platelets 80. Chemistry reviewed, shows creatinine of 4.8, BUN is 34, shows no evidence of any renal recovery. Calcium 6.9. MICROBIOLOGY: Nothing new. IMAGING STUDIES: Nothing new. IMPRESSION: 1. Chronic kidney disease stage 5, now end-stage renal disease, on dialysis secondary to diabetic nephropathy, hypertension, and acute tubular necrosis, possibly also underlying contrast. 2. Diabetic foot ulcer, status post debridement with underlying lower extremity angiogram with PCI performed. 3. Type 2 diabetes. 4. Hypertension. 5. Anemia of chronic disease. 6. Secondary hyperparathyroidism. 7. Oliguria. PLAN: At this time, the patient accidentally removed his Trialysis catheter last night. He will need dialysis today, in which now IR has been consulted for a tunneled dialysis catheter placement. Vascular Surgery has been notified. He will receive dialysis today. I gave the orders already to the dialysis nurse. He has no evidence of renal recovery. His creatinine is actually elevated to 4.8, and he has very minimal urine output. We will continue with same plan of care and monitor very closely. Either he goes to LTAC versus outpatient HD unit. MD CARMEN Simpson/ESME /[id number]
--- NOTE | 2020-08-18 19:20 | NUR ---
BEDSIDE SHIFT REPORT RECEIVED. PATIENT IS RESTING IN BED, AAOX3. RESP EVEN AND UNLABORED. HX OF LEFT BKA NOTED. RIGHT FOOT DRESSING NOTED, DRY AND INTACT. RIGHT SUBCLAVIAN TUNNEL CATH NOTED, DRY AND INTACT. JARA IN PLACE. EDUCATED PT ABOUT FALL PRECAUTIONS. PT VERBALIZED UNDERSTANDING. BED IS LOW AND LOCKED. SIDE RAILS X2. CALL LIGHT WITH IN EASY REACH. BED ALARM IS ON. ALL SAFETY MEASURES IN PLACE. PT DENIES NEEDS AT THIS TIME.
--- NOTE | 2020-08-18 20:06 | Progress Note ---
DATE: SUBJECTIVE: The patient is seen and evaluated, available labs and notes reviewed. Discussed with Dr. Arredondo. REVIEW OF SYSTEMS: The patient has no complaints, eating dinner and he is happy with his progress. PHYSICAL EXAMINATION: VITAL SIGNS: Temperature is 98.4, pulse 79, respirations 17, blood pressure 154/63. GENERAL: Alert, oriented, very pleasant, no acute distress, in bed, slightly elevated and eating dinner. CV: S1-S2. CHEST: Equal expansion. LUNGS: Clear to auscultation. No acute distress. HEENT: Moist. No pallor. No JVD. EXTREMITIES: Left old BKA with right foot splint and Martinez wrap. MEDICATIONS: Reviewed from Infectious Disease point of view: The patient is on cefazolin. LABORATORY STUDIES: White count 9.3, hemoglobin 7.4; platelets 80, dropped from 107 yesterday. Sodium is 141, potassium 3.7, creatinine is 4.81. SEROLOGY: No new serology studies available. Hep C genotype in progress. RADIOLOGY STUDIES: The patient is status post successful uncomplicated placement of the right internal jugular tunneled dialysis catheter. ASSESSMENT AND PLAN: 1. Diabetic foot ulcer status post debridement, the patient is status post angiogram of lower extremity with PCI and intervention. 2. Acute on chronic kidney disease. 3. Hypertension. 4. Diabetes. 5. Anemia of chronic disease. 6. The patient is currently on cefazolin, we will continue as planned. The patient was denied LTAC, unclear disposition at this point. Discussed with Dr. Arredondo in details. Please refer to chart for more information. Dictated by Isaías Ascencio PA-C (Al) Isaura Arredondo MD /MODL /[id number]
[2020-08-19] VITALS (8 sets, daily range): BP systolic 138–157; BP diastolic 59–87
[2020-08-19] MEDS: ATORVASTATIN 40 MG TAB PO SCH ×2 (00:16→20:29)
[2020-08-19] MEDS: CEFAZOLIN SOD 1 GM/NS 50ML 50 ML IV SCH ×2 (00:16→14:10)
--- NOTE | 2020-08-19 00:30 | NUR ---
HD DONE. 2 L WAS PULLED. VITAL SIGN STABLE AT THIS TIME. ABX GIVEN PER JAN INSTRUCTION. CONTINUE TO MONITOR CLOSELY
[2020-08-19] MEDS: INSULIN REGULAR, HUMAN 100 UNIT/1 ML 3ML VIAL SQ SCH ×4 (07:30→20:10)
[2020-08-19] MEDS: FAMOTIDINE 20 MG TAB PO SCH ×2 (10:18→17:08)
[2020-08-19] MEDS: SODIUM BICARBONATE 650 MG TAB PO SCH ×2 (10:19→17:08)
[2020-08-19] MEDS: CLOPIDOGREL BISULFATE 75 MG TAB PO SCH (10:19)
[2020-08-19] MEDS: METOPROLOL TARTRATE 25 MG TAB PO SCH ×2 (10:19→17:09)
[2020-08-19] MEDS: ASPIRIN 81 MG ENTERIC COATED PO SCH (10:19)
[2020-08-19] MEDS: TAMSULOSIN HCL 0.4 MG CAP PO SCH (10:19)
[2020-08-19] MEDS: ACETAMINOPHEN 325 MG TAB PO PRN (10:43)
[2020-08-19] MEDS ORDERED: HEPARIN SOD (PORCINE) 1000 UNIT/ML SDV IV PRN (10:45)
[2020-08-19] MEDS: IRON SUCROSE 100 MG in SODIUM CHLORIDE 0.9% 100 ML 100 ML IV SCH (11:00)
--- NOTE | 2020-08-19 11:28 | Progress Note ---
DATE: SUBJECTIVE: The patient is seen and examined today. The patient appeared comfortable. No adverse feeling noted. PHYSICAL EXAMINATION: GENERAL: Alert, awake, communicative. HEENT: Normocephalic, atraumatic. Sclerae pink. Conjunctivae clear. NECK: Supple. CHEST: Decreased breath sounds on the bases. ABDOMEN: Soft. EXTREMITIES: No edema. LABORATORY AND IMAGING DATA: Reviewed. ASSESSMENT AND PLAN: 1. The patient with history of multiple medical condition. I am currently following for thrombocytopenia. Platelet counts are in 80 range. His current CBC is pending. The patient also had vascular surgery procedures scheduled for Friday. Continue to monitor CBC very closely. 2. Symptomatic anemia. On Procrit and iron, improving. RECOMMENDATION: 1. Close observation. 2. Continue remaining care and platelet transfusion before procedure. We will follow. MD KIP Cherry/ESME /[id number]
--- NOTE | 2020-08-19 16:40 | Progress Note ---
DATE: SUBJECTIVE: The patient is seen and evaluated, available labs and notes reviewed. Physical therapy in the room. Nurses in room. No acute distress. REVIEW OF SYSTEMS: No nausea, vomiting, fever, chills, chest pain, shortness of breath, headache, rash, dysuria. PHYSICAL EXAMINATION: VITAL SIGNS: Temperature 98.6, pulse 75, respirations 16, blood pressure 157/73. CV: S1-S2. CHEST: Equal expansion, clear to auscultation. No acute distress. ABDOMEN: Soft, nontender. No distention. HEENT: Moist. No pallor. No JVD. 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 MEDICATIONS: Medication list reviewed. From ID point of view, the patient is on cefazolin. LABORATORY STUDIES: No new CBC or BMP available. SEROLOGY: Hep C genotype pending. MICROBIOLOGY: No new microbiology studies available. RADIOLOGY: No new radiology studies available. ASSESSMENT AND PLAN: 1. Diabetic foot ulcer status post debridement and angiogram of the lower extremity with PCI and intervention. 2. Diabetes. 3. Acute on chronic kidney disease. 4. Hypertension. 5. Anemia of chronic disease. 6. Continue with cefazolin as planned. Plan was for LTAC. However, the patient was denied. Continue to monitor patient clinically and follow up with the labs. Discussed with Dr. Arredondo in details. Dictated by Isaías Ascencio PA-C (Al) Isaura Arredondo MD /MODL /[id number]
--- NOTE | 2020-08-19 17:55 | Progress Note ---
DATE: 08/19/2020 Nephrology Progress Note. SUBJECTIVE: The patient is doing well today with no complaints. He was working with physical therapy during my evaluation. OBJECTIVE: VITAL SIGNS: Afebrile and blood pressure 157/73, pulse 75, respiratory rates 16, on 2 L nasal cannula. GENERAL: In no acute distress. Alert and oriented x3. Cooperative on examination. PULMONARY: Clear to auscultation bilaterally. No wheezing, rales, or rhonchi. No crackles appreciated. CARDIOVASCULAR: Positive S1 and S2. No murmurs, rubs, or gallops appreciated. ABDOMEN: Soft, nondistended, nontender to palpation. Bowel sounds present. MUSCULOSKELETAL: Strength is 5/5 throughout. No evidence of any muscle deficits on examination. No weakness appreciated. NEUROLOGICAL: Cranial nerves II through XII grossly intact. No evidence of any neurological deficits on exam. SKIN: Intact. Warm to touch. Good capillary refill. PSYCHIATRIC: Normal affect and mood. EXTREMITIES: No edema. Good range of motion throughout. LABORATORY DATA: CBC; white count 9.3, hemoglobin 7.4, hematocrit 24, platelets of 80. Chemistry reviewed from 08/18. IMPRESSION: 1. Chronic kidney disease, stage V, now end-stage renal disease on dialysis secondary to diabetic nephropathy, hypertension, ATN, and possibly underlying contrast. 2. Diabetic foot ulcer status post debridement with underlying lower extremity angiogram with PCI performed. 3. Type 2 diabetes. 4. Hypertension. 5. Anemia of chronic disease. 6. Secondary hyperparathyroidism. 7. Oliguria. PLAN: At this time, he has a tunneled catheter placed. He had dialysis yesterday. Still pending LTAC. Does not need dialysis for today. Okay to pull Horowitz. He has very minimal urine output. Get labs in the morning. MD CAMREN Simpson/MODL /[id number]
--- NOTE | 2020-08-19 18:45 | NUR ---
paula removed, pt due void 0200.
--- NOTE | 2020-08-19 19:09 | NUR ---
report given to oncoming nurse, walking rounds complete.
--- NOTE | 2020-08-19 23:51 | Progress Note ---
DATE: SUBJECTIVE/EVENTS OVERNIGHT: The patient pulled out Horowitz catheter. He had pulled out his Trialysis catheter the night before last. He is not confused and these were apparently accidents. He has no complaints of pain or otherwise. OBJECTIVE: VITAL SIGNS: Temperature 98.6, pulse 83, blood pressure 138/87, respirations 19, oxygen saturation 100%. GENERAL: Supine, head of bed elevated. No acute distress. LUNGS: Clear to auscultation. No supplemental oxygen. HEENT: EOMI. NECK: Supple. CARDIOVASCULAR: Regular rate and rhythm without murmur. ABDOMEN: Bowel sounds positive. Soft, nontender. EXTREMITIES: No pitting edema. Left BKA. Right lower extremity with splint/Martinez wrap. NEUROLOGICAL: GCS 15. Nonfocal. LABORATORY DATA: Fingerstick blood glucose levels 129, 224, 198. Lab holiday. IMAGING: No new imaging results. ASSESSMENT AND PLAN: 1. Right foot peripheral arterial disease/gangrene/OM positive Staph, status post right transmetatarsal amputation and right lower extremity angioplasty/stents. Continue IV Ancef as per Infectious Disease recommendations. Continue wound care and ASA/Plavix/Lipitor. 2. End-stage renal disease. A new dialysis catheter has been placed. The patient will likely have either tunneled hemodialysis catheter versus AV fistula creation on Friday per cardiovascular surgeon recommendations. Hemodialysis per Nephrology. Last night with 2 L removed. 3. Type 2 diabetes mellitus with end-stage renal disease. Serum glucose 155, hemoglobin A1c 9% on 08/02. Continue sliding scale insulin. 4. Thrombocytopenia. Monitor platelets. Recheck CBC and BMP in the morning. Hematology following. 5. Ambulatory dysfunction. Physical Therapy eval and treat. 6. Anemia of chronic disease secondary to end-stage renal disease. Monitor H and H. Continue Venofer/Epoetin. Hematology following. 7. Prophylaxis. Pepcid. 8. Disposition LTAC denied, disposition currently unclear. Per discussion with Dr. Childers during peer to peer, the patient has not completed his acute phase as of yet and will need additional procedures, thus he is too acute for transfer to LTAC at this time. We will need to reapply for LTAC postprocedure on Friday, await for the Physical Therapy recommendations. A good description of the wound should be documented. Possible dispositions include long-term acute care hospital versus acute rehabilitation, although the patient may or may not be able to tolerate 3 hours of therapy. Inpatient, billing code [id number], time spent 35 minutes. Dictated by Levi Adams, ARAM MD THOM Brewer/ESME /[id number]
[2020-08-20] VITALS (8 sets, daily range): BP systolic 127–169; BP diastolic 74–82
[2020-08-20 05:46] LABS: BASOPHILS % 0.4 % (0.0-1.0); EOSINOPHILS # (AUTO) 0.4 (0.0-0.4); EOSINOPHILS % 4.3 % (0.0-6.0); HEMATOCRIT 24.8 % (38.2-49.6); HEMOGLOBIN 7.6 g/dL (14.0-18.0); LYMPHOCYTES % 20.6 % (18.0-39.1); MEAN CORPUSCULAR HEMOGLOBIN 25.6 pg (28-32); MEAN CORPUSCULAR HGB CONC 30.6 g/dL (31-35); MEAN CORPUSCULAR VOLUME 83.5 fL (81-99); MONOCYTES # (AUTO) 1.6 (0.2-0.8); MONOCYTES % 17.2 % (4.4-11.3); NEUTROPHILS # (AUTO) 5.2 (2.1-6.9); NEUTROPHILS % 54.8 % (38.7-80.0); PLATELET COUNT 93 x10e3/uL (140-360); RED BLOOD COUNT 2.97 x10e6/uL (4.3-5.7)
[2020-08-20 06:01] LABS: ANION GAP 15.9 mmol/L (8-16); CALCIUM 7.3 mg/dL (8.4-10.2); CREATININE, SERUM 4.98 mg/dL (0.72-1.25); POTASSIUM 3.9 mmol/L (3.5-5.1)
[2020-08-20] MEDS: INSULIN REGULAR, HUMAN 100 UNIT/1 ML 3ML VIAL SQ SCH ×4 (07:30→21:00)
--- NOTE | 2020-08-20 07:49 | NUR ---
CALLED AT THIS TIME, SPOKE WITH Isadora ARROYO.
[2020-08-20] MEDS: FAMOTIDINE 20 MG TAB PO SCH ×2 (10:09→17:01)
[2020-08-20] MEDS: SODIUM BICARBONATE 650 MG TAB PO SCH ×2 (10:12→17:01)
[2020-08-20] MEDS: TAMSULOSIN HCL 0.4 MG CAP PO SCH (10:12)
[2020-08-20] MEDS: ASPIRIN 81 MG ENTERIC COATED PO SCH (10:12)
[2020-08-20] MEDS: METOPROLOL TARTRATE 25 MG TAB PO SCH ×2 (10:12→17:01)
[2020-08-20] MEDS: CLOPIDOGREL BISULFATE 75 MG TAB PO SCH (10:12)
[2020-08-20] MEDS: IRON SUCROSE 100 MG in SODIUM CHLORIDE 0.9% 100 ML 100 ML IV SCH (11:00)
--- NOTE | 2020-08-20 11:44 | NUR ---
INFECTIOUS DISEASE PROGRESS NOTE DR. VICKEY BOWSER SUBJECTIVE: The patient is seen and evaluated, available labs and notes reviewed. Discussed with Dr. Bowser. REVIEW OF SYSTEMS: The patient has no complaints, eating dinner and he is happy with his progress. PHYSICAL EXAMINATION: VITAL SIGNS: per chart GENERAL: Alert, oriented, very pleasant, no acute distress, in bed, slightly elevated and eating dinner. CV: S1-S2. CHEST: Equal expansion. LUNGS: Clear to auscultation. No acute distress. HEENT: Moist. No pallor. No JVD. EXTREMITIES: Left old BKA with right foot splint and Martinez wrap. MEDICATIONS: Reviewed from Infectious Disease point of view: The patient is on cefazolin. LABORATORY STUDIES: per chart SEROLOGY: per chart RADIOLOGY STUDIES: The patient is status post successful uncomplicated placement of the right internal jugular tunneled dialysis catheter. ASSESSMENT AND PLAN: 1. Diabetic foot ulcer status post debridement, the patient is status post angiogram of lower extremity with PCI and intervention. 2. ESRD 3. Hypertension. 4. Diabetes. 5. Anemia of chronic disease. The patient is currently on cefazolin, we will continue as planned. LTAC plans Tunneled HD cath Trudy Spaulding MSN, STUDENT CAREER DEVELOPMENT SPECIALIST, AGACNP-BC Vickey Bowser M.D.
[2020-08-20] MEDS: CEFAZOLIN SOD 1 GM/NS 50ML 50 ML IV SCH (13:00)
--- NOTE | 2020-08-20 17:19 | Progress Note ---
DATE: 08/20/2020 CONSULTING PHYSICIANS: 1. Dr. Александр Salomon with Hematology. 2. Dr. Sanchez with Cardiovascular Surgery. 3. Dr. Buitrago with Cardiology. 4. Dr. Tanja Abad with Nephrology. 5. Dr. Gaurang Mendoza with Podiatry. SUBJECTIVE: The patient has no new complaints. He has good appetite. No pain. Per Chery PALOMINO, the patient pulled off his hemodialysis catheter dressing today. She cleaned the site and replace the dressing (the patient has recent history of pulling out his hemodialysis catheter). OBJECTIVE: VITAL SIGNS: Temperature 97.1, pulse 72, blood pressure 148/74, respirations 21, and oxygen saturation 100%. GENERAL: Supine, head of bed elevated. No acute distress. LUNGS: Clear to auscultation. Respiratory pattern even and unlabored. No supplemental oxygen. HEENT: EOMI. Moist mucous membranes. NECK: Supple. No lymphadenopathy, thyromegaly, or JVD. CARDIOVASCULAR: Regular rate and rhythm. No murmur. ABDOMEN: Bowel sounds positive. Soft and nontender. No obvious distention. Obese. EXTREMITIES: With no pitting edema. Lower extremity with splint/Martinez wrap, left BKA. NEUROLOGICAL: GCS 15. Nonfocal. LABORATORY DATA: Fingerstick blood glucose levels 115, 198, 234. WBCs 9.47, hemoglobin 7.6, hematocrit 24.8, and platelets 93. Sodium 139, potassium 3.9, chloride 99, CO2 28, anion gap 15.9, BUN 27, creatinine 4.98, estimated GFR 12, glucose 99, and calcium 7.3. IMAGING: No new imaging results. ASSESSMENT AND PLAN: 1. Right foot peripheral arterial disease/gangrene/OM positive Staph, status post right transmetatarsal amputation and right lower extremity angioplasty/stents. Continue IV Ancef as per Infectious Disease recommendations. Continue ASA/Plavix/Lipitor and wound care. 2. End-stage renal disease. The patient now has a right chest wall hemodialysis catheter. He will likely have either a tunneled hemodialysis catheter versus AV fistula creation on Friday per cardiovascular surgeon and Nephrology recommendations. Continue hemodialysis per Nephrology. Last hemodialysis was 08/18, with 2 L removed. 3. Uncontrolled type 2 diabetes mellitus with end-stage renal disease. Glucose 99 to 234. Hemoglobin A1c 9% on 08/02. Continue sliding scale insulin. 4. Thrombocytopenia. Platelet level 93 (80). Per Hematology note, goal is for platelets above 50 for procedure tomorrow. We will recheck CBC in the morning. 5. Ambulatory dysfunction. Physical therapy following. 6. Anemia of chronic disease secondary to end-stage renal disease. Hemoglobin 7.6 and hematocrit 24.8. Monitor H and H. continue Venofer/epoetin. Hematology following. 7. Prophylaxis. Pepcid. Disposition: LTAC was denied, disposition currently unclear. Per my discussion with Dr. Childers during the peer to peer on 08/19, the patient has not completed his acute phase as of yet and will need additional procedures, thus he is too acute for transfer to LTAC at this time. We will need to reapply for LTAC postprocedure on Friday, wait for physical therapy recommendations. A good description of the wound should be documented. Possible dispositions include long-term acute care hospital versus acute rehabilitation, although the patient may or may not be able to tolerate 3 hours of therapies. Inpatient, billing code [id number], time spent 35 minutes. Dictated by Levi Adams NP MD THOM Brewer/VIKL /[id number]
--- NOTE | 2020-08-20 19:31 | NUR ---
Dr. Sanchez rounded, ordered NPO after midnight, AM labs, and consent for upper extremity access.
--- NOTE | 2020-08-20 19:39 | NUR ---
REPORT GIVEN TO ONCOMING NURSE, WALKING ROUNDS COMPLETE.
--- NOTE | 2020-08-20 20:19 | Progress Note ---
DATE: 08/20/2020 REASON FOR PROGRESS NOTE: End-stage renal failure, need for permanent dialysis access, gangrene of right lower extremity, status post right SFA angioplasty and transmetatarsal amputation; requested by Dr. Isaura Arredondo. SUBJECTIVE: Clinically stable. No complaints. Right lower extremity dressing clean and dry. REVIEW OF SYSTEMS: No chest pain, shortness of breath, or fever. Neurologic status is stable and unchanged. Postoperative pain well controlled. PHYSICAL EXAMINATION: GENERAL: Well-developed, well-nourished man, lying flat in bed. VITAL SIGNS: Blood pressure 125/75, pulse 75 and regular, respirations 16 and unlabored. NECK: Supple and nontender. No JVD. CARDIAC: Regular rate and rhythm. Normal S1 and S2. No S3 or S4. LUNGS: Clear to auscultation and percussion bilaterally. ABDOMEN: Globally benign. EXTREMITIES: Right lower extremity dressing in place. Extremities are warm and well perfused. LABORATORY DATA: White count 9.4, hemoglobin 7.6, hematocrit 24.8, and platelet count 93,000. Sodium 139, potassium 3.9, BUN 27, creatinine 4.98. INR 1.08 on 08/18. IMPRESSION: End-stage renal failure. Vein mapping has been completed. I agree with the need for permanent dialysis access. I described the operation to the patient, who is in the hospital by himself. I told him that the risks of surgery would include , bleeding, infection, heart attack, stroke, pneumonia, prolonged ICU stay, mechanical ventilation, tracheostomy, permanent hand/limb muscle or nerve damage, hand/limb amputation, hand/limb chronic pain, a 10% to 15% chance of the fistula might not mature appropriately and require subsequent revision, further surgery, replacement, etc. He stated that he understood, no further questions and wanted to proceed. I have also discussed this with his family. MD LANETTE GallagherL/MODL /[id number]
[2020-08-20] MEDS: ATORVASTATIN 40 MG TAB PO SCH (21:00)
[2020-08-21] VITALS (7 sets, daily range): BP systolic 148–181; BP diastolic 52–82
--- NOTE | 2020-08-21 02:25 | Progress Note ---
DATE: 08/20/2020 Nephrology Progress Note SUBJECTIVE: The patient is doing well today with no complaints. No overnight events. PHYSICAL EXAMINATION: VITAL SIGNS: Afebrile, normotensive. GENERAL: No acute distress. Alert and oriented x3. Cooperative on examination. HEENT: Head is normocephalic and atraumatic. Eyes; pupils are equal, round, and reactive to light bilaterally. PULMONARY: Clear to auscultation bilaterally. No wheezing, rales, or rhonchi. No crackles appreciated. CARDIOVASCULAR: Positive S1 and S2. No murmurs, rubs, or gallops appreciated. ABDOMEN: Soft, nondistended, nontender to palpation. Bowel sounds present. MUSCULOSKELETAL: Strength is 5/5 throughout. No evidence of muscle deficits on examination. No weakness appreciated. SKIN: Intact. Warm to touch. Good cap refill. PSYCHIATRIC: Normal affect and mood. EXTREMITIES: No edema. Good range of motion throughout. LABORATORY DATA: Labs show CBC stable. Chemistry reviewed, shows no evidence of renal recovery. Urine output very minimal. IMPRESSION: 1. End-stage renal disease, on hemodialysis. 2. Anemia of end-stage renal disease. 3. Secondary hyperparathyroidism. PLAN: At this time from a renal standpoint, he is making very little urine. Tunneled catheter has been placed. He will be scheduled for some surgical intervention in the lower extremities. We will continue to monitor very closely. We could perform dialysis as per schedule tomorrow. Otherwise, we will continue same plan of care and monitor very closely. MD CARMEN Simpson/ESME /[id number]
[2020-08-21 05:54] LABS: BASOPHILS # (AUTO) 0.1 (0.0-0.1); BASOPHILS % 0.5 % (0.0-1.0); EOSINOPHILS # (AUTO) 0.4 (0.0-0.4); EOSINOPHILS % 3.7 % (0.0-6.0); HEMATOCRIT 24.2 % (38.2-49.6); HEMOGLOBIN 7.6 g/dL (14.0-18.0); LYMPHOCYTES # (AUTO) 1.7 (1.0-3.2); MEAN CORPUSCULAR HEMOGLOBIN 26.7 pg (28-32); MEAN CORPUSCULAR HGB CONC 31.4 g/dL (31-35); MEAN CORPUSCULAR VOLUME 84.9 fL (81-99); MONOCYTES # (AUTO) 2.1 (0.2-0.8); MONOCYTES % 18.9 % (4.4-11.3); NEUTROPHILS # (AUTO) 6.6 (2.1-6.9); NEUTROPHILS % 58.5 % (38.7-80.0); PLATELET COUNT 133 x10e3/uL (140-360); RED BLOOD COUNT 2.85 x10e6/uL (4.3-5.7)
[2020-08-21 06:20] LABS: ANION GAP 16.7 mmol/L (8-16); CALCIUM 7.3 mg/dL (8.4-10.2); POTASSIUM 3.7 mmol/L (3.5-5.1)
[2020-08-21] MEDS: FAMOTIDINE 20 MG TAB PO SCH ×2 (07:30→17:36)
[2020-08-21] MEDS: INSULIN REGULAR, HUMAN 100 UNIT/1 ML 3ML VIAL SQ SCH ×4 (07:30→21:00)
[2020-08-21] MEDS: METOPROLOL TARTRATE 25 MG TAB PO SCH ×2 (07:40→17:36)
[2020-08-21] MEDS: TAMSULOSIN HCL 0.4 MG CAP PO SCH (07:40)
[2020-08-21] MEDS: ASPIRIN 81 MG ENTERIC COATED PO SCH (07:40)
[2020-08-21] MEDS: CLOPIDOGREL BISULFATE 75 MG TAB PO SCH (07:41)
[2020-08-21] MEDS: SODIUM BICARBONATE 650 MG TAB PO SCH ×2 (07:41→17:36)
--- NOTE | 2020-08-21 09:46 | Progress Note ---
DATE: SUBJECTIVE: The patient is seen and examined. The patient appears comfortable, clinically doing okay. PHYSICAL EXAMINATION: GENERAL: Alert, awake, communicative. HEENT: Normocephalic, atraumatic. Sclerae pink. Conjunctiva clear. NECK: Supple. CHEST: Clear to auscultation. CARDIOVASCULAR: Regular rate and rhythm. ABDOMEN: Soft. EXTREMITIES: Right lower extremity dressing in place. Extremities are warm and well perfused. LABORATORY DATA: Reviewed. ASSESSMENT AND PLAN: The patient with history of multiple medical conditions. I am currently following for thrombocytopenia. Platelet counts stable, improving. The patient is following with vascular surgeon. The patient needs permanent dialysis access. So far counts are stable for procedure. We will monitor CBC closely. Anemia. Workup consistent with anemia of chronic disease. Recommendation, continue erythropoietin treatment. Peripheral vascular disease. The patient is following Cardiovascular Surgery. Continue to monitor their recommendation. I will continue remaining care and I will follow. MD KIP Cherry/ESME /[id number]
[2020-08-21 11:23] LABS: EOSINOPHILS % (MANUAL) 1 % (0-7); LYMPHOCYTES % (MANUAL) 15 % (19-48); MONOCYTES % (MANUAL) 11 % (3.4-9.0); MYELOCYTES % (MANUAL) 2 % (0-0); NEUTROPHILS % (MANUAL) 71 % (40-74); PLATELET ESTIMATE SLIGHTLY DECREASED; PLATELET MORPHOLOGY COMMENT NORMAL; RBC MORPHOLOGY COMMENT NORMAL
--- NOTE | 2020-08-21 11:45 | NUR ---
Verbal order by PIPE CLEANING MACHINE OPERATOR Phuong to resume diet if surgery is not done today.
--- NOTE | 2020-08-21 11:45 | NUR ---
Dr. Mendoza stated that the patient is clear for discharge from his standpoint.
[2020-08-21] MEDS: IRON SUCROSE 100 MG in SODIUM CHLORIDE 0.9% 100 ML 100 ML IV SCH (13:10)
--- NOTE | 2020-08-21 14:43 | Progress Note ---
DATE: 08/21/2020 SUBJECTIVE: The patient is seen at bedside, no distress, doing well. OBJECTIVE: VITAL SIGNS: Afebrile, pulse rate 84, respirations 18, blood pressure 153/73, and O2 saturation 100%. EXTREMITIES: Incision site and flap are viable to the right lower extremity. Positive edema. Negative foul smell. Pedal pulses diminished. LABORATORY DATA: Noted, has a white blood cell count of 11.3. ASSESSMENT: Status post right foot surgery approximately a week, doing well. PLAN: A sterile dressing was applied. The patient put back in the posterior splint. Continue IV antibiotics. Continue offloading. Upon discharge, the patient to follow up in office. Signing off case. SERGIO Houston/ESME /[id number]
--- NOTE | 2020-08-21 15:19 | NUR ---
SPOKE WITH PT ABOUT SNF, GAVE LIST IN NETWORK HE SIGNED CHOICE FOR [facility], FILED IN CHART COMPLETED PASRR, RTF AND FAXED CLINICALS TO FACILITY.
--- NOTE | 2020-08-21 16:26 | NUR ---
Nutrition Screen Note RD Recommendation for Physician: - Continue 1800 ADA, Renal diet Plan of Care: RD following, monitoring for tolerance and adequacy Nutrition reason for involvement: follow up Primary Diagnose(s): cellulitis of R foot, gangrene toe of R foot PMH: DM, PVD, HTN, severe neuropathy, L BKA Ht: 65 in Wt: 208 lb BMI: 34.6 kg/m2 AIBW: [address] Assessment: 08/21: Follow up. Pt sleeping at time of visit, did not respond to greeting x 2. Pt NPO today for possible procedure. Previously eating 50-100% of meals. No GI distress recorded- LBM today. Labs and meds reviewed. Chart reviewed. Will continue to monitor. 08/14: Follow up. Pt discussed during MDR. Pt out of room this am for procedure at time of initial visit and working with PT at time of second attempted visit. Pt eating 50-100% of meals, no GI distress recorded- LBM 08/13. Pt with ongoing monitoring for HD needs, plan for HD tomorrow per MD notes. Labs and meds reviewed. Chart reviewed. Will continue to monitor. (08/07) 70 YOM admitted for gangrene of toe on R foot, seen today for LOS. 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 Pt denies wt loss and denies GI distress. Pt with no questions or concerns at time of visit. Pt s/p L heart cath today and now with CKD4 with secondary hyperparathyroidism per MD notes. Pt discussed during MDR. Chart reviewed. Labs and meds reviewed. Will continue to monitor. Current Diet: 1800 ADA, Renal Malnutrition Evaluation (08/21/20) The patient does not meet criteria for a specified degree of malnutrition at this time. Will re-evaluate at follow-up as appropriate. Diet Education Needs Assessment: Diet education not indicated. Diet tolerance: tolerating po Nutrition Care Level: low Signed: Dorothea Darden RD, LD, [facility]
[2020-08-21] MEDS ORDERED: HEPARIN SOD (PORCINE) 1000 UNIT/ML SDV IV PRN (17:30)
[2020-08-21] MEDS ORDERED: SODIUM CHLORIDE 0.9% 1000ML 2,000 ML ONE (18:11)
--- NOTE | 2020-08-21 20:29 | Progress Note ---
DATE: 08/21/2020 REASON FOR REQUEST: End-stage renal failure, need for permanent dialysis access, gangrene of the right lower extremity status post right SFA angioplasty and transmetatarsal amputation; requested by Dr. Isaura Arredondo. SUBJECTIVE: Clinically stable. No complaints. Right lower extremity dressing clean and dry. REVIEW OF SYSTEMS: No chest pain, shortness of breath, or fever. Neurologic status stable. Postoperative pain well controlled. OR for today, canceled by anesthesia because of the delay in dialysis. PHYSICAL EXAMINATION: GENERAL: Well-developed and well-nourished man, lying flat in bed. VITAL SIGNS: Blood pressure 130/70, pulse 70 and regular, respirations 16 and unlabored. NECK: Supple and nontender. No JVD. CARDIAC EXAMINATION: Regular rate and rhythm. Normal S1, S2. No S3 is heard. LUNGS: Clear to auscultation and percussion bilaterally. ABDOMEN: Globoid. Benign. EXTREMITIES: Right lower extremity dressing in place. Extremities warm and well perfused. LABORATORY DATA: White count 11.3, hemoglobin 7.6, hematocrit 24.2, platelet count 133,000. Sodium 138, potassium 3.7, BUN 36, creatinine 6.0. IMPRESSION: OR cancelled today because of delay in dialysis. We will reschedule. Nicolas Sanchez MD GVL/MODL /[id number]
[2020-08-21] MEDS: ATORVASTATIN 40 MG TAB PO SCH (21:50)
--- NOTE | 2020-08-21 21:50 | NUR ---
PATIENT RESTING IN BED IN STABLE CONDITION, NO SIGNS OF DISTRESS NOTED. PATIENT IS FINISHED WITH DIALYSIS AND 3 WAS REMOVED AND VOICES NO PAIN AT THIS TIME. DRESSING AND SPLINT NOTED TO RIGHT FOOT, IT IS CLEAN, DRY,AND INTACT. BED IS IN LOWEST POSITION, BOTH SIDE RAILS ARE UP, CALL LIGHT IS WITHIN EASY REACH, WILL CONTINUE TO MONITOR.
[2020-08-22] VITALS: BP 158/68
--- NOTE | 2020-08-22 01:25 | Progress Note ---
DATE: 08/21/2020 Nephrology Progress Note SUBJECTIVE: The patient doing well today with no complaints. He did receive dialysis today. AV fistula creation will likely occur sometime later this week. There were some logistics involved with anesthesia today. PHYSICAL EXAMINATION: VITAL SIGNS: Temperature is afebrile, normotensive, respiratory rate is good. GENERAL: No acute distress. Alert and oriented x3. PULMONARY: Clear to auscultation bilaterally. No wheezing, rales, or rhonchi. No crackles appreciated. CARDIOVASCULAR: Positive S1 and S2. No murmurs, rubs, or gallops appreciated. ABDOMEN: Soft and nontender to palpation. Bowel sounds present. MUSCULOSKELETAL: Strength 5/5 throughout. No evidence of any muscle deficits on examination. LABORATORY DATA: Labs reviewed. CBC stable. Chemistry reviewed, stable except creatinine was 6, BUN 36, and potassium is 3.7. IMAGING STUDIES: Nothing new. IMPRESSION: 1. End-stage renal disease, on hemodialysis with right chest wall tunneled catheter. 2. Anemia of end-stage renal disease. 3. Secondary hyperparathyroidism. PLAN: At this time from a renal standpoint, he did receive dialysis today as per schedule. He is scheduled to go [facility] [place] in [place]. He will likely be admitted under Dr. Garvin, Nephrology. We will continue same plan of care and monitor very closely. AV fistula creation later this week. MD CARMEN Simpson/VIKL /[id number]
[2020-08-22 04:00] VITALS: BP 161/65
[2020-08-22 05:10] LABS: BASOPHILS % 0.4 % (0.0-1.0); EOSINOPHILS # (AUTO) 0.3 (0.0-0.4); EOSINOPHILS % 2.7 % (0.0-6.0); HEMATOCRIT 22.6 % (38.2-49.6); HEMOGLOBIN 7.1 g/dL (14.0-18.0); LYMPHOCYTES # (AUTO) 1.2 (1.0-3.2); LYMPHOCYTES % 13.3 % (18.0-39.1); MEAN CORPUSCULAR HEMOGLOBIN 26.5 pg (28-32); MEAN CORPUSCULAR HGB CONC 31.4 g/dL (31-35); MEAN CORPUSCULAR VOLUME 84.3 fL (81-99); MONOCYTES # (AUTO) 1.7 (0.2-0.8); NEUTROPHILS # (AUTO) 5.6 (2.1-6.9); NEUTROPHILS % 61.3 % (38.7-80.0); PLATELET COUNT 102 x10e3/uL (140-360); RED BLOOD COUNT 2.68 x10e6/uL (4.3-5.7); RED CELL DISTRIBUTION WIDTH 14.2 % (11.7-14.4)
[2020-08-22 05:40] LABS: ALBUMIN 2.9 g/dL (3.5-5.0); ALKALINE PHOSPHATASE 57 IU/L (40-150); ANION GAP 13.2 mmol/L (8-16); BLOOD UREA NITROGEN 20 mg/dL (7-26); BUN/CREATININE RATIO 5 (6-25); CALCIUM 7.3 mg/dL (8.4-10.2); CARBON DIOXIDE 28 mmol/L (22-29); CHLORIDE 102 mmol/L (98-107); CREATININE, SERUM 4.19 mg/dL (0.72-1.25); EST GLOMERULAR FILTRATION RATE 14 ML/MIN (60-); GLUCOSE 139 mg/dL (74-118); POTASSIUM 3.2 mmol/L (3.5-5.1); SODIUM 140 mmol/L (136-145)
[2020-08-22 06:11] LABS: ALANINE AMINOTRANSFERASE < 6 IU/L (0-55)
[2020-08-22] MEDS: INSULIN REGULAR, HUMAN 100 UNIT/1 ML 3ML VIAL SQ SCH ×3 (07:30→16:10)
[2020-08-22 08:06] VITALS: BP 161/76
[2020-08-22 08:57] LABS: BASOPHILS % 0.5 % (0.0-1.0); EOSINOPHILS # (AUTO) 0.2 (0.0-0.4); EOSINOPHILS % 2.4 % (0.0-6.0); HEMATOCRIT 23.4 % (38.2-49.6); HEMOGLOBIN 7.2 g/dL (14.0-18.0); LYMPHOCYTES # (AUTO) 1.2 (1.0-3.2); LYMPHOCYTES % 13.8 % (18.0-39.1); MEAN CORPUSCULAR HEMOGLOBIN 25.4 pg (28-32); MEAN CORPUSCULAR HGB CONC 30.8 g/dL (31-35); MEAN CORPUSCULAR VOLUME 82.7 fL (81-99); MONOCYTES # (AUTO) 1.6 (0.2-0.8); MONOCYTES % 18.3 % (4.4-11.3); NEUTROPHILS # (AUTO) 5.4 (2.1-6.9); NEUTROPHILS % 62.3 % (38.7-80.0); PLATELET COUNT 116 x10e3/uL (140-360); RED BLOOD COUNT 2.83 x10e6/uL (4.3-5.7); RED CELL DISTRIBUTION WIDTH 14.2 % (11.7-14.4)
[2020-08-22 09:00] VITALS: BP 161/76
[2020-08-22] MEDS: SODIUM BICARBONATE 650 MG TAB PO SCH ×2 (09:45→16:49)
[2020-08-22] MEDS: METOPROLOL TARTRATE 25 MG TAB PO SCH ×2 (09:45→16:49)
[2020-08-22] MEDS: CLOPIDOGREL BISULFATE 75 MG TAB PO SCH (09:45)
[2020-08-22] MEDS: FAMOTIDINE 20 MG TAB PO SCH ×2 (09:45→16:48)
[2020-08-22] MEDS: ASPIRIN 81 MG ENTERIC COATED PO SCH (09:45)
[2020-08-22] MEDS: TAMSULOSIN HCL 0.4 MG CAP PO SCH (09:45)
--- NOTE | 2020-08-22 11:29 | NUR ---
INFECTIOUS DISEASE PROGRESS NOTE DR. VICKEY BOWSER SUBJECTIVE: The patient is seen and evaluated, available labs and notes reviewed. Discussed with Dr. Bowser. REVIEW OF SYSTEMS: The patient has no complaints, eating dinner and he is happy with his progress. PHYSICAL EXAMINATION: VITAL SIGNS: per chart GENERAL: Alert, oriented, very pleasant, no acute distress, in bed, slightly elevated and eating dinner. CV: S1-S2. CHEST: Equal expansion. LUNGS: Clear to auscultation. No acute distress. HEENT: Moist. No pallor. No JVD. EXTREMITIES: Left old BKA with right foot splint and Martinez wrap. MEDICATIONS: Reviewed from Infectious Disease point of view: The patient is on cefazolin. LABORATORY STUDIES: per chart SEROLOGY: per chart RADIOLOGY STUDIES: The patient is status post successful uncomplicated placement of the right internal jugular tunneled dialysis catheter. ASSESSMENT AND PLAN: 1. Diabetic foot ulcer status post debridement, the patient is status post angiogram of lower extremity with PCI and intervention. 2. ESRD 3. Hypertension. 4. Diabetes. 5. Anemia of chronic disease. Keflex 500mg po QD upon discharge x14 days. No longer LTAC plans Tunneled HD cath Trudy Spaulding MSN, RUBBER COMPOUNDER SUPERVISOR, AGACNP-BC Vickey Bowser M.D.
--- NOTE | 2020-08-22 11:31 | Progress Note ---
DATE: SUBJECTIVE: The patient doing okay. No evidence of any active bleeding. The patient dropped his hemoglobin from 7.7 to 7.1. Platelet count above 100. PHYSICAL EXAMINATION: GENERAL: Alert, awake, communicative. HEENT: Normocephalic, atraumatic. Lips are pink. Conjunctivae clear. NECK: Supple. CHEST: Decreased breath sounds on the bases. CARDIOVASCULAR: Regular rate and rhythm. ABDOMEN: Soft. EXTREMITIES: BKA, wound covered with clean dressing. LABORATORY AND IMAGING: Reviewed. ASSESSMENT AND PLAN: 1. The patient with history of multiple medical conditions includes peripheral vascular disease, anemia, thrombocytopenia, renal insufficiency. 2. Thrombocytopenia. 3. Platelet count, improved to 100. 4. Clinically doing okay. 5. No evidence of any bleeding. RECOMMENDATION: 1. Close observation. 2. Platelet transfusion in case of any bleeding. 3. Platelet transfusion for procedure, we will defer it to primary surgeon. 4. Anemia. Hemoglobin dropped. 5. Repeat CBC. 6. No active bleeding noted. 7. The patient on erythropoietin and iron. 8. Monitor CBC. 9. Peripheral vascular disease. 10. Following Vascular surgeon. 11. Continue to follow their recommendation. MD KIP Cherry/ESME /[id number]
[2020-08-22 11:52] VITALS: BP 129/63
[2020-08-22] MEDS: IRON SUCROSE 100 MG in SODIUM CHLORIDE 0.9% 100 ML 100 ML IV SCH (12:08)
--- NOTE | 2020-08-22 13:45 | Progress Note ---
DATE: 08/22/2020 Nephrology Progress Note SUBJECTIVE: The patient is doing well today with no complaints. No overnight events. LABORATORY FINDINGS: White count 9.7, hemoglobin 7.2, hematocrit 23, and platelets of 116. Chemistry reviewed. Sodium 140, potassium 3.2, chloride 102, bicarb 20, anion gap of 13, BUN 20, creatinine 0.19, glucose is 139, and calcium is 7.3. PHYSICAL EXAMINATION: VITAL SIGNS: Temperature 98.7, pulse 80, respiratory rate is 19, blood pressure 161/76, and pulse ox 97% on room air. GENERAL: No acute distress, alert and oriented x3. Cooperative on examination. PULMONARY: Clear to auscultation bilaterally. No wheezing, rales, or rhonchi. No crackles appreciated. CARDIOVASCULAR: Positive S1-S2. No gallop appreciated. ABDOMEN: Soft, nontender, nondistended to palpation. Bowel sounds present. MUSCULOSKELETAL: Strength 5/5 throughout. No evidence of any muscle deficits on examination. IMPRESSION: 1. End-stage renal disease, on hemodialysis with a right chest wall tunneled catheter. 2. Anemia of end-stage renal disease. 3. Secondary hyperparathyroidism. PLAN: At this time from a renal standpoint, he will get dialysis tomorrow. I will give him a 1 unit packed RBCs with HD tomorrow. He has been scheduled to go [facility] here in [place] under Dr. Garvin, fisher diving, who is the biomedical field service engineer. AV fistula potential creation later this week. If not, he can get this done as an outpatient. Continue to follow very closely. MD CARMEN Simpson/MODL /[id number]
[2020-08-22 15:54] VITALS: BP 114/60
--- NOTE | 2020-08-22 16:06 | NUR ---
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
--- NOTE | 2020-08-22 16:07 | NUR ---
SPOKE WITH MALINDA @ [facility], PT SET TO BEGIN ON FRIDAY AT 12 FOR PAPERWORK AND 1230 START
[2020-08-22] MEDS: ACETAMINOPHEN 325 MG TAB PO PRN (16:49)
[2020-08-22] MEDS ORDERED: PLAVIX75 MG PO (16:54)
[2020-08-22] MEDS ORDERED: HEPARIN SO1000 UNIT1 IV (16:54)
[2020-08-22] MEDS ORDERED: ASPIRIN EC81 MG PO (16:54)
[2020-08-22] MEDS ORDERED: ACETAMINOPHEN325 M1 PO (16:54)
[2020-08-22] MEDS ORDERED: LOPRESSOR25 MG PO (16:54)
[2020-08-22] MEDS ORDERED: CHOLESTYRAMINE L4 GM PO (16:54)
[2020-08-22] MEDS ORDERED: FAMOTIDINE20 MG PO (16:54)
[2020-08-22] MEDS ORDERED: RETACRIT10000 UNIT SC (16:54)
[2020-08-22] MEDS ORDERED: SODIUM BICARBO650 MG PO (16:54)
[2020-08-22] MEDS ORDERED: HUMULIN R100 UNIT/2 SQ (16:54)
[2020-08-22] MEDS ORDERED: DEXTROSE 50%-WA50 M1 IV (16:54)
[2020-08-22] MEDS ORDERED: KEFLEX500 MG PO (17:46)
--- NOTE | 2020-08-22 19:03 | NUR ---
patient discharged. Report called to Ca PALOMINO at [facility] @ [id number]. Patient's granddaughter, Rebeca, notified. All questions answered. belongings packed up and IV removed. Patient wheeled off unit in stable condition by [facility].
--- NOTE | 2020-08-22 20:57 | Discharge Summary ---
PCP: Dr. Braden Martino. CONSULTING PHYSICIANS: Dr. Александр Salomon with Hematology, Dr. Nicolas Sanchez with Cardiovascular Surgery, Dr. Luiz Buitrago with Cardiology, Dr. Tanja Abad with Nephrology, Dr. Gaurang Mendoza with Podiatry. CHIEF COMPLAINT: Right great toe/second toe wounds/gangrene. HISTORY OF PRESENT ILLNESS: The patient is a 70-year-old male, who admitted with complaints of right great toe/right second toe wounds after popping a blister. He says his toes started turning black about 3 days prior to admission. His temperature was 100.9, so his family told him to go to the emergency room. PAST MEDICAL HISTORY: PAD, hypertension, type 2 diabetes mellitus, diabetic neuropathy, BPH, hyperlipidemia. PAST SURGICAL HISTORY: Left BKA, bilateral cataract surgery, right heel debridement. FAMILY HISTORY: Daughter has diabetes. SOCIAL HISTORY: Noncontributory. ALLERGIES: NO KNOWN ALLERGIES. ADMITTING DIAGNOSES: 1. Right lower extremity cellulitis/gangrene with possible osteomyelitis. 2. Hypertension. 3. Type 2 diabetes mellitus. 4. Benign prostatic hypertrophy. 5. Hyperlipidemia. 6. Obesity with BMI of 30. 7. Acute kidney injury versus chronic kidney disease. 8. Urinary tract infection, present on admission. DISCHARGE DIAGNOSES: 1. Right foot peripheral arterial disease/gangrene/osteomyelitis, positive Staphylococcus, status post right transmetatarsal amputation and right lower extremity angioplasty/stents. 2. End-stage renal disease with recent iatrogenic Trialysis catheter removal and subsequent placement of right chest wall hemodialysis catheter. 3. Type 2 diabetes mellitus with end-stage renal disease. 4. Thrombocytopenia. 5. Ambulatory dysfunction. 6. Anemia of chronic disease secondary to end-stage renal disease. HOSPITAL COURSE: The patient was admitted on or about July 31. He was placed on cefepime and Zyvox antibiotics per Infectious Disease. He had nonpalpable circulation in the feet. Vascular Surgery was consulted. He denied any discomfort or much sensation in his feet. Denied any subjective fever or chills, although was noted to be septic with an elevated white blood cell count on admission. He underwent multiple diagnostic tests. Chest x-ray showed bibasilar haziness, possibly due to atelectasis or pneumonia. Pulmonary vascular congestion. Right foot x-ray showed suspicion for osteomyelitis. MRI of the right foot confirmed diagnosis of osteomyelitis. Renal ultrasound was normal. On 08/04, final echocardiogram showed low normal ventricular systolic function with an ejection fraction between 50% to 55%. Pseudonormal left ventricular filling pattern consistent with elevated LA pressure. He had a left heart catheterization with pulmonary angiography, abdominal aortogram with bilateral lower extremity runoff on 08/[address] Buitrago. Please see operative report for details. Per documentation, he has 2-vessel coronary artery disease with a moderate LAD lesion and severe left circumflex artery lesion, severe right peripheral vascular disease. On 08/08, lower extremity vein mapping was done. No DVT in the either extremities. Per Dr. Mendoza's note, the patient has peripheral arterial disease with gangrene and cellulitis. Initially diagnosed with chronic kidney disease stage 4 to 5. The patient progressed to end-stage renal disease and will require hemodialysis 3 days a week. The patient was also noted to have right carotid disease as per carotid Doppler ultrasound. Transmetatarsal amputation on the right lower extremity by Podiatry was done on , 08/10. Achilles tendon lengthening was also done with I and D at that time. The patient underwent drug-eluting balloon angioplasty right SFA on 08/14/2020. As aforementioned, mapping was done for possible AV graft surgical procedure. Accidental iatrogenic Trialysis catheter removal occurred on 08/18/2020. Thus, this had to be replaced. Hemoglobin A1c was 9% on 08/02/2020. There were attempts to get the patient into a long-term acute care hospital; however, this was denied by the insurance company saying that he was too acute for long-term acute care hospital. Per discussion with Dr. Childers during the that period it appeared the patient had not completed his acute phase at that point, still needed additional procedures, thus to acute for transfer to LTAC at that time. Acute rehab was also consideration; however, unsure if the patient can tolerate 3 hours worth of therapy per day. The patient was on IV Ancef toward the end of stay. He now has a right chest wall hemodialysis catheter. Case was discussed with Dr. Abad and his laboratory data was discussed. The patient last had hemodialysis 08/21, and his next dialysis will be on via SNG on an outpatient basis. The patient is going to the [facility] with Dr. Mayen as the accepting physician, ARAM Berry with Dr. Mayen, and Dr. Mayen will be following up with the patient. The patient will need permanent dialysis access, which will likely occur on an outpatient basis. Dr. Sanchez was informed that the patient will be discharging today to the [facility] facility and that this needs to be set up on an outpatient basis. He agreed and will follow up. Probable procedure will be AV fistula placement. The patient is to continue on a renal ADA diet. Activity level as tolerated. His pain is controlled. Subjectively, he has no complaints. No change in physical examination. Underlying history of left BKA. Right lower extremity with splint/Martinez wrap. Today on the day of discharge; temperature 97.4, heart rate 73, respirations 18, blood pressure 114/60, oxygen saturation 99%. Sodium 140, potassium 3.2, chloride 102, CO2 of 28, anion gap 13.2, BUN 20, creatinine 4.19, estimated GFR 14, glucose 139. Fingerstick blood glucose levels 145 and 214. Calcium 7.3, total bilirubin 0.3, AST 15, ALT less than 6, alkaline phosphatase 57, total protein 5.7, albumin 2.9. WBC 8.74, hemoglobin 7.2, hematocrit 23.4, platelets 116. Coronavirus PCR was negative on 07/31/2020. On 07/31, final urine culture showed E coli. Blood cultures x2 had been negative. During his stay, he received 1 unit of blood and 2 units of platelets. Dictated by Levi Adams NP MD THOM Brewer/MODL /[id number]
== END 2020-08-22 19:00 | DRG 853 ==
LOC: ER 21:00 → ERHOLD 21:55 → MED/SURG2 08-01 00:15
PROVIDERS: ADMIT Internal Medicine; ATTEND Internal Medicine
PROC: X27H385 Dilation of Right Femoral Artery with Sustained Release Drug-eluting Intraluminal Device, Percutaneous Approach, New Technology Group 5 (ICD-10-PCS; 2020-07-31)
PROC: 047M3Z1 Dilation of Right Popliteal Artery using Drug-Coated Balloon, Percutaneous Approach (ICD-10-PCS; 2020-07-31)
PROC: 047P3Z1 Dilation of Right Anterior Tibial Artery using Drug-Coated Balloon, Percutaneous Approach (ICD-10-PCS; 2020-07-31)
PROC: 4A023N7 Measurement of Cardiac Sampling and Pressure, Left Heart, Percutaneous Approach (ICD-10-PCS; principal; 2020-08-07)
PROC: B41D1ZZ Fluoroscopy of Aorta and Bilateral Lower Extremity Arteries using Low Osmolar Contrast (ICD-10-PCS; 2020-08-07)
PROC: B41F1ZZ Fluoroscopy of Right Lower Extremity Arteries using Low Osmolar Contrast (ICD-10-PCS; 2020-08-07)
PROC: 0Y6M0Z0 Detachment at Right Foot, Complete, Open Approach (ICD-10-PCS; 2020-08-10)
PROC: 0L8V0ZZ Division of Right Foot Tendon, Open Approach (ICD-10-PCS; 2020-08-10)
PROC: 0JBQ0ZZ Excision of Right Foot Subcutaneous Tissue and Fascia, Open Approach (ICD-10-PCS; 2020-08-10)
PROC: 0JXQ0ZZ Transfer Right Foot Subcutaneous Tissue and Fascia, Open Approach (ICD-10-PCS; 2020-08-10)
PROC: 5A1D70Z Performance of Urinary Filtration, Intermittent, Less than 6 Hours Per Day (ICD-10-PCS; 2020-08-11)
PROC: 02HV33Z Insertion of Infusion Device into Superior Vena Cava, Percutaneous Approach (ICD-10-PCS; 2020-08-11)
PROC: 0JH63XZ Insertion of Tunneled Vascular Access Device into Chest Subcutaneous Tissue and Fascia, Percutaneous Approach (ICD-10-PCS; 2020-08-18)
PROC: 02HV33Z Insertion of Infusion Device into Superior Vena Cava, Percutaneous Approach (ICD-10-PCS; 2020-08-18)
DX: A41.9 Sepsis, unspecified organism (principal); N18.6 End stage renal disease; N17.0 Acute kidney failure with tubular necrosis; E11.52 Type 2 diabetes mellitus with diabetic peripheral angiopathy with gangrene; L03.115 Cellulitis of right lower limb; N39.0 Urinary tract infection, site not specified; N17.9 Acute kidney failure, unspecified; M86.8X7 Other osteomyelitis, ankle and foot; I12.0 Hypertensive chronic kidney disease with stage 5 chronic kidney disease or end stage renal disease; E11.22 Type 2 diabetes mellitus with diabetic chronic kidney disease; E11.621 Type 2 diabetes mellitus with foot ulcer; L97.519 Non-pressure chronic ulcer of other part of right foot with unspecified severity; E11.69 Type 2 diabetes mellitus with other specified complication; D69.6 Thrombocytopenia, unspecified; E66.9 Obesity, unspecified; Z68.30 Body mass index [BMI] 30.0-30.9, adult; N40.0 Benign prostatic hyperplasia without lower urinary tract symptoms; E78.5 Hyperlipidemia, unspecified; Z74.09 Other reduced mobility; Z99.2 Dependence on renal dialysis; Z11.59 Encounter for screening for other viral diseases; Z89.512 Acquired absence of left leg below knee; Z91.19 Patient's noncompliance with other medical treatment and regimen; B96.20 Unspecified Escherichia coli [E. coli] as the cause of diseases classified elsewhere
CPT/HCPCS: 36247; 36415; 36556; 36558; 37224; 37226; 37228; 71045; 74470; 75625; 75710; 76770; 76937; 77001; 80048; 80053; 80061; 81001; 81015; 82044; 82550; 82553; 82570; 82607; 82728; 82948; 83036; 83540; 83605; 83735; 83970; 84100; 84156; 84443; 84466; 84484; 85025; 85379; 85384; 85610; 85730; 86704; 86705; 86706; 86850; 86900; 86920; 86945; 87040; 87071; 87075; 87086; 87186; 87205; 87340; 87902; 88304; 88307; 88311; 93005; 93306; 93454; 93880; 93926; 93970; 96372; 97139; 99152; 99153; 99251; 99284; C1725; C1760; C1769; C1887; C2623; J0360; J0690; J0692; J0720; J1100; J1644; J1756; J1815; J1817; J2001; J2020; J2150; J2250; J2270; J2405; J2543; J3010; J3370; J7030; J7042; J7050; J7799; P9016; P9034; Q9967

== ENCOUNTER → 2020-09-08 | Day surgery (SDC) | payer MEDICARE, OTHER ==
[~2020-09-08] MED LIST changes: +ACETAMINOPHEN325 M1 PO; +ASPIRIN EC81 MG PO; +BUPIVACAINE HCL 0.5% INJ 30 ML VIAL INJ ONE; +CHOLESTYRAMINE L4 GM PO; +DEXAMETHASONE SOD PHOS INJ 4 MG/ML VIAL ONE; +DEXTROSE 50%-WA50 M1 IV; +DIOVAN80 MG PO; +FAMOTIDINE20 MG PO; +FENTANYL CITRATE/PF 100MCG/2 ML INJ ONE; +FLOMAX0.4 MG PO; +HEPARIN SO1000 UNIT1 IV; +HEPARIN SOD (PORCINE) 1000 UNIT/ML 30ML ONE; +HEPARIN SOD (PORCINE) 5,000 UNIT/ML VIAL ONE; +HUMULIN R100 UNIT/2 SQ; +INSULIN REGULAR, HUMAN 100 UNIT/1 ML 3ML VIAL ONE; +KEFLEX500 MG PO; +LIDOCAINE HCL 2% LOCAL INJ 5 ML SDV VIAL INJ ONE; +LOPRESSOR25 MG PO; +METOPROLOL TART25 MG PO; +ONDANSETRON HCL INJ 2MG/ML 2ML 2 MG/ML VIAL ONE; +ONDANSETRON2 MG/1 ML PO; +PLAVIX75 MG PO; +PROPOFOL IV EMULSION 10 MG/ML 20 ML VIAL ONE; +PROTAMINE SULFATE 10 MG/ML 5 ML VIAL ONE; +RETACRIT10000 UNIT SC; +SEVOFLURANE INHAL SOLN 250 ML PEN BTL ONE; +SIMVASTATIN20 MG PO; +SODIUM BICARBO650 MG PO; +SODIUM CHLORIDE 0.9% 500ML 500 ML ONE; +THROMBIN FOR SOLN 5,000 UNIT VIAL ONE; +THROMBIN-JMI W/DIL SPRAY PUMP ACTUATOR 20000 UNIT KIT ONE
[2020-09-08 16:10] VITALS: BP 112/60
== END | disposition home or self-care (01) ==
LOC: OR 09:09
PROVIDERS: ATTEND Surgery
DX: E11.22 Type 2 diabetes mellitus with diabetic chronic kidney disease (principal); I12.0 Hypertensive chronic kidney disease with stage 5 chronic kidney disease or end stage renal disease; N18.6 End stage renal disease; I73.9 Peripheral vascular disease, unspecified; I25.10 Atherosclerotic heart disease of native coronary artery without angina pectoris; D69.6 Thrombocytopenia, unspecified; R94.31 Abnormal electrocardiogram [ECG] [EKG]; R06.83 Snoring; Z01.812 Encounter for preprocedural laboratory examination; Z01.818 Encounter for other preprocedural examination; Z11.59 Encounter for screening for other viral diseases; Z79.02 Long term (current) use of antithrombotics/antiplatelets; Z79.82 Long term (current) use of aspirin; Z79.4 Long term (current) use of insulin; Z99.3 Dependence on wheelchair; Z99.2 Dependence on renal dialysis; Z89.512 Acquired absence of left leg below knee; Z89.421 Acquired absence of other right toe(s); Z87.891 Personal history of nicotine dependence
CPT/HCPCS: 36415; 36818; 71046; 82948; 84132; C1713; J1100; J1644 ×2; J2001; J2405; J2704; J2720; J3010; J7040; U0002; J1817